=== PATIENT | male | born 1940 | race Caucasian/White ===

== ENCOUNTER 2016-09-23 08:16 | Outpatient (CLI) ==
[2016-04-14 23:29] VITALS: BMI 48.5
[2016-09-23 12:51] LABS: BASOPHILS % (AUTO) 0.5 % (0.0-3.0); EOSINOPHILS # (AUTO) 0.3 K/ul (0.0-0.7); EOSINOPHILS % (AUTO) 4.1 % (0.0-7.0); HEMATOCRIT 37.5 % (42.0-52.0); HEMOGLOBIN 12.1 g/dl (14.0-18.0); IMMATURE GRANULOCYTE % (AUTO) 0.3 % (0.0-5.0); LYMPHOCYTES # (AUTO) 1.4 K/uL (0.60-3.4); LYMPHOCYTES % (AUTO) 22.4 (10.0-50.0); MEAN CORPUSCULAR HEMOGLOBIN 31.8 pg (27.0-31.0); MEAN CORPUSCULAR HGB CONC 32.3 (31.8-35.4); MEAN CORPUSCULAR VOLUME 98.7 fl (80.0-94.0); MONOCYTES # (AUTO) 0.4 K/uL (0.4-2.0); NEUTROPHILS # (AUTO) 4.1 K/ul (2.0-6.9); NEUTROPHILS % (AUTO) 66.7; PLATELET COUNT 123 10^3/uL (140-440); WHITE BLOOD COUNT 6.16 K/ul (4.2-10.2)
[2016-09-23 13:01] LABS: BILIRUBIN,URINE Negative (NEGATIVE); KETONES,URINE Negative (NEGATIVE); LEUKOCYTE ESTERASE ,URINE Negative (NEGATIVE); NITRITE,URINE Negative (NEGATIVE); PROTEIN,URINE Negative (NEGATIVE); URINE, BLOOD Negative (NEGATIVE)
[2016-09-23 13:05] LABS: ADD URINE MICROSCOPIC NO
[2016-09-23 13:29] LABS: ANION GAP 16.4; POTASSIUM 4.4 mmol/L (3.5-5.1)
[2016-09-23 13:30] LABS: ALBUMIN 4.1 g/dL (3.4-5.0); ALBUMIN/GLOBULIN RATIO 1.32; BILIRUBIN,TOTAL 0.41 mg/dL (0.00-1.20); BUN/CREATININE RATIO 17.46; CALCIUM 9.8 mg/dL (8.2-10.2); CHOL/HDL RATIO 7.4 (4.5-6.4); CREATININE 1.26 mg/dL (0.60-1.10); TOTAL PROTEIN 7.2 g/dL (5.8-8.1)
== END 2016-09-23 08:17 | disposition home or self-care (01) ==
LOC: LAB 08:16
PROVIDERS: ATTEND General Practice
DX: E11.8 Type 2 diabetes mellitus with unspecified complications (principal); E11.40 Type 2 diabetes mellitus with diabetic neuropathy, unspecified; C90.00 Multiple myeloma not having achieved remission; I10 Essential (primary) hypertension; E03.9 Hypothyroidism, unspecified; E78.1 Pure hyperglyceridemia; Z79.899 Other long term (current) drug therapy
CPT/HCPCS: 36415; 80053; 80061; 81001; 83036; 84443; 85025

== ENCOUNTER → 2016-09-30 | Outpatient (POV) | payer OTHER ==
[2016-04-14 23:29] VITALS: BMI 48.5
== END ==
LOC: OUTPT 00:01
PROVIDERS: ATTEND Otolaryngology
DX: H91.90 Unspecified hearing loss, unspecified ear (principal)
CPT/HCPCS: 92557; 92567

== ENCOUNTER 2016-10-13 15:06 | Outpatient (CLI) | payer OTHER ==
[2016-04-14 23:29] VITALS: BMI 48.5
== END 2016-10-13 15:07 | disposition home or self-care (01) ==
LOC: LAB 15:06
PROVIDERS: ATTEND General Practice
DX: R60.0 Localized edema (principal); R06.09 Other forms of dyspnea
CPT/HCPCS: 36415; 83880

== ENCOUNTER 2016-11-07 09:48 | Inpatient (IN) ==
[2016-11-07 10:22] LABS: BASOPHILS % (AUTO) 0.5 % (0.0-3.0); EOSINOPHILS # (AUTO) 0.1 K/ul (0.0-0.7); EOSINOPHILS % (AUTO) 1.8 % (0.0-7.0); HEMATOCRIT 33.6 % (42.0-52.0); HEMOGLOBIN 11.4 g/dl (14.0-18.0); IMMATURE GRANULOCYTE % (AUTO) 0.2 % (0.0-5.0); LYMPHOCYTES # (AUTO) 0.7 K/uL (0.60-3.4); LYMPHOCYTES % (AUTO) 17.1 (10.0-50.0); MEAN CORPUSCULAR HEMOGLOBIN 32.1 pg (27.0-31.0); MEAN CORPUSCULAR HGB CONC 33.9 (31.8-35.4); MEAN CORPUSCULAR VOLUME 94.6 fl (80.0-94.0); MONOCYTES # (AUTO) 0.5 K/uL (0.4-2.0); MONOCYTES % (AUTO) 10.6 (0-10); NEUTROPHILS % (AUTO) 69.8; PLATELET COUNT 86 10^3/uL (140-440); RED BLOOD COUNT 3.55 10^6/ul (4.70-6.10); WHITE BLOOD COUNT 4.33 K/ul (4.2-10.2)
[2016-11-07 10:26] LABS: ABG BASE EXCESS -5 (-2.0-2.0); ABG HCO3 20.3 (22.0-26.0); ABG PCO2 36.8 mmHg (35-45); ABG PH 7.349 (7.35-7.45); ABG TCO2 21 (22.0-28.0)
[2016-11-07] MEDS ORDERED: DUONEB NEB STA (10:34)
[2016-11-07 11:00] LABS: ALBUMIN 4.1 g/dL (3.4-5.0); ALBUMIN/GLOBULIN RATIO 1.28; ANION GAP 20.2; BILIRUBIN,TOTAL 0.22 mg/dL (0.00-1.20); BUN/CREATININE RATIO 17.76; CALCIUM 9.5 mg/dL (8.2-10.2); CREATININE 1.52 mg/dL (0.60-1.10); POTASSIUM 4.2 mmol/L (3.5-5.1); TOTAL PROTEIN 7.3 g/dL (5.8-8.1); TROPONIN I 0.012 ng/ml (0.0000-0.4000)
[2016-11-07 11:56] LABS: CREATINE KINASE MB 1.7 ng/ml (0.0-3.6)
--- NOTE | 2016-11-07 12:51 | DI ---
EXAM: CHEST FRONTAL AND LATERAL VIEWS HISTORY: Cough. COMPARISON: 09/21/2014 FINDINGS: Heart size and mediastinal contour remain within normal limits. No acute infiltrates. Normal vascularity with no pleural fluid or pneumothorax. The bony thorax has no acute finding. IMPRESSION: No acute process.
--- NOTE | 2016-11-07 13:10 | ED.PDOC ---
General ED Provider: Dr. MIKEL VANCE Chief Complaint: Respiratory Complaint Stated Complaint: short of air Time Seen by Physician: 10:00 Mode of Arrival: Wheelchair Information Source: Patient Exam Limitations: No limitations Primary Care [facility] Nursing and Triage Documentation Reviewed and Agree: Yes Respiratory Complaint Exam - Shortness of Air Complaint/Exam Onset/Duration: 1 day Symptoms Are: Still present Timing: Constant, Intermittent Initial Severity: Mild Current Severity: Mild Character: Reports: Dyspnea at rest Aggravating: Reports: None Alleviating: Reports: Bronchodilators Associated Signs and Symptoms: Reports: Cough, Nasal congestion History of Healthcare-Acquired Pneumonia: No Pulmonary Embolism Risk Factors: Reports: None Cardiac Risk Factors: Reports: None Pseudomonas Risk Factors: Reports: None Tuberculosis Risk Factors: Reports: None Home Oxygen Use: No Recent Stress Test: No Recent Echo/LV Function: No Respiratory Distress: None Stridor Present: No Tracheal Deviation: No Subcutaneous Emphysema: No Accessory Muscle Use: No Diminished Breath Sounds: No Prolonged Expiratory Phase: No Unable to Speak Full Sentences: No Fatigue: No Leg Swelling: No Triston's Sign Present: No Grunting Respirations: No Kussmaul Respirations: No Differential Diagnoses: Pneumonia, Bronchitis Review of Systems - Review Of Systems Constitutional: Reports: No symptoms Eyes: Reports: No symptoms Ears, Nose, Mouth, Throat: Reports: No symptoms Respiratory: Reports: Cough Cardiac: Reports: No symptoms GI: Reports: No symptoms : Reports: No symptoms Musculoskeletal: Reports: No symptoms Skin: Reports: No symptoms Neurological: Reports: No symptoms Endocrine: Reports: No symptoms Hematologic/Lymphatic: Reports: No symptoms All Other Systems: Reviewed and Negative Past Medical History - Past Medical History Endocrine: Reports: DM 2, Hypothyroid Cardiovascular: Reports: Hypertension Respiratory: Reports: COPD Hematological: Reports: None Gastrointestinal: Reports: None Genitourinary: Reports: None Neuro/Psych: Reports: None Musculoskeletal: Reports: None Cancer: Reports: None - Surgical History General Surgical History: Reports: Appendectomy, Cholecystectomy, Orthopedic, Back Surgery - Family History Family History: Reports: None - Social History Smoking Status: Former smoker, Dips snuff Hx Substance Use: No Alcohol Screening: None Physical Exam - Physical Exam Appearance: Well-appearing, No pain distress, Well-nourished Eyes: RUTH ANN, EOMI, Conjunctiva clear ENT: Ears normal, Nose normal, Oropharynx normal Respiratory: Airway patent, Breath sounds clear, Breath sounds equal, Respirations nonlabored Cardiovascular: RRR, Pulses normal, No rub, No murmur GI/: Soft, Nontender, No masses, Bowel sounds normal, No Organomegaly Musculoskeletal: Normal strength, ROM intact, No edema, No calf tenderness Skin: Warm, Dry, Normal color Neurological: Sensation intact, Motor intact, Reflexes intact, Cranial nerves intact, Alert, Oriented Psychiatric: Affect appropriate, Mood appropriate Interpretation - Radiology Interpretation Radiology Interpretation By: Radiologist Radiology Results: Negative Exam Interpreted: CXR Physician Notification - Case Discussed Physician Notified: pmd Time of Notification: 13:10 (admitt) Admit/Transition Orders Entered by ED Provider: Yes Admit To: Inpatient Critical Care Note - Critical Care Note Total Time (mins): 0 Course - Course Hematology/Chemistry: 11/07/16 10:10 11/07/16 10:10 Orders, Labs, Meds: Lab Review 11/07/16 11/07/16 09:20 10:10 WBC 4.33 RBC 3.55 L Hgb 11.4 L Hct 33.6 L MCV 94.6 H MCH 32.1 H MCHC 33.9 RDW Coeff of Torri 13.8 Plt Count 86 L Immature Gran % (Auto) 0.2 Neut % (Auto) 69.8 Lymph % (Auto) 17.1 Dauphin % (Auto) 10.6 H Eos % (Auto) 1.8 Baso % (Auto) 0.5 Immature Gran # (Auto) 0.0 Neut # 3.0 Lymph # 0.7 Dauphin # 0.5 Eos # 0.1 Baso # 0.0 D-Dimer 0.29 Puncture Site L rad O2 Saturation 89.0 L ABG pH 7.349 L ABG pCO2 36.8 ABG pO2 58.0 L* ABG HCO3 20.3 L ABG Total CO2 21 L ABG Base Excess -5 L Shilo Test + FiO2 % 21.0 Sodium 136 Potassium 4.2 Chloride 100 Carbon Dioxide 20 L Anion Gap 20.2 BUN 27 H Creatinine 1.52 H Estimated GFR (MDRD) 45.00 BUN/Creatinine Ratio 17.76 Glucose 178 H Calcium 9.5 Total Bilirubin 0.22 AST 21 ALT 27 Alkaline Phosphatase 74 Total Creatine Kinase 125 CK-MB (CK-2) 1.7 CK-MB (CK-2) % 1.40019 Troponin I 0.0120 B-Natriuretic Peptide 27 Total Protein 7.3 Albumin 4.1 Globulin 3.2 Albumin/Globulin Ratio 1.28 Orders Category Date Time Status ABG DRAW REQUEST Stat CARDIO 11/07/16 09:57 Completed EKG-(ED ONLY) Stat CARDIO 11/07/16 10:02 Completed NEBULIZER TREATMENT Stat CARDIO 11/07/16 10:34 Completed ABG Stat LAB 11/07/16 09:20 Completed B-TYPE NATRIURETIC PEPTIDE Stat LAB 11/07/16 10:10 Completed BLOOD CULTURE Stat LAB 11/07/16 10:10 Received CBC W/ AUTO DIFF Stat LAB 11/07/16 10:10 Completed COMPREHENSIVE METABOLIC PANEL Stat LAB 11/07/16 10:10 Completed CREATINE KINASE Stat LAB 11/07/16 10:10 Completed D-DIMER Stat LAB 11/07/16 10:10 Completed TROPONIN I Stat LAB 11/07/16 10:10 Completed Ipratropium/Albuterol Neb [Duoneb] MEDS 11/07/16 10:34 Discontinued 1 vial NEB ONCE STA CHEST, 2 VIEWS PA & LAT Stat RADS 11/07/16 12:18 Completed Medications Discontinued Medications Generic Name Dose Route Start Last Admin Trade Name Freq PRN Reason Stop Dose Admin Albuterol/Ipratropium 1 vial 11/07/16 10:34 11/07/16 10:48 Duoneb NEB 11/07/16 10:35 1 vial ONCE STA Administration Vital Signs: Temp Pulse Resp BP Pulse Ox 11/07/16 09:48 96.7 F L 81 20 128/74 89 L Departure - Departure Time of Disposition: 13:10 Disposition: ADMITTED INPATIENT Discharge Problem: Shortness of breath at rest Instructions: Dyspnea (ED) Condition: Good Pt referred to PMD for follow-up: No Additional Instructions: Please call your Family Physician as soon as possible to schedule a follow-up appointment. Allergies/Adverse Reactions: Allergies gabapentin Adverse Reaction (Verified 11/07/16 09:54) Swelling STATES, "MAKES HIM SWELL AND HOLD WATER" Home Medications: Ambulatory Orders Glipizide [Glucotrol] 10 mg PO BID 05/24/13 Levothyroxine Sodium [Synthroid] 112 mcg PO QDAC 05/24/13 Polyethylene Glycol 3350 [Clearlax] 119 gm PO BEDTIME 05/24/13 Terazosin HCl [Hytrin] 5 mg PO DAILY 05/24/13 Acetaminophen [Tylenol] 1,000 mg PO BID 09/21/14 Cyanocobalamin/Folic Acid [Vitamin J20-Iuhgb Acid Tablet] 5,000 mcg PO DAILY 04/28 Aspirin [Aspir 81] 81 mg PO DAILY PRN 06/07/15 Torsemide 20 mg PO DAILY 06/07/15 Lorazepam [Ativan] 0.5 mg PO DAILY PRN 11/07/16 Potassium 99 mg PO DAILY 11/07/16 Disposition Discussed With: Patient
[2016-11-07] MEDS: SODIUM CHLORIDE 1,000 ML IV SCH (13:51)
[2016-11-07 14:05] VITALS: BMI 48.9
[2016-11-07] MEDS: DUONEB NEB SCH ×2 (17:10→23:02)
[2016-11-07] MEDS ORDERED: GLUCOTROL PO SCH (17:30)
[2016-11-07 20:31] LABS: CREATINE KINASE 117 U/L
[2016-11-07 20:33] LABS: CREATINE KINASE MB 1.6 ng/ml (0.0-3.6)
[2016-11-07] MEDS ORDERED: TYLENOL PO SCH (21:00)
[2016-11-07] MEDS ORDERED: ZITHROMAX 500 MG in SODIUM CHLORIDE 250 ML IV SCH (21:00)
[2016-11-07] MEDS ORDERED: ROCEPHIN 2 GM in SODIUM CHLORIDE 100 ML IV SCH (21:00)
[2016-11-07] MEDS ORDERED: NON-FORMULARY MEDICATION (Glipizide [Glucotrol] 10 MG) PO SCH ×22 (21:00)
[2016-11-07] MEDS ORDERED: POLYETHYLENE GLYCOL 119 GM PO SCH (21:00)
[2016-11-07] MEDS ORDERED: ROCEPHIN ONE (21:09)
[2016-11-07] MEDS: ZESTRIL PO SCH (21:17)
[2016-11-07] MEDS: MIRALAX PO SCH (21:17)
[2016-11-07] MEDS: SOLU-MEDROL 40 MG IVP SCH (21:19)
[2016-11-08 03:41] LABS: BASOPHILS % (AUTO) 0.2 % (0.0-3.0); EOSINOPHILS % (AUTO) 0.2 % (0.0-7.0); HEMATOCRIT 34.7 % (42.0-52.0); HEMOGLOBIN 11.5 g/dl (14.0-18.0); IMMATURE GRANULOCYTE % (AUTO) 0.2 % (0.0-5.0); LYMPHOCYTES # (AUTO) 0.4 K/uL (0.60-3.4); LYMPHOCYTES % (AUTO) 8.1 (10.0-50.0); MEAN CORPUSCULAR HEMOGLOBIN 31.7 pg (27.0-31.0); MEAN CORPUSCULAR HGB CONC 33.1 (31.8-35.4); MEAN CORPUSCULAR VOLUME 95.6 fl (80.0-94.0); MONOCYTES # (AUTO) 0.2 K/uL (0.4-2.0); MONOCYTES % (AUTO) 3.7 (0-10); NEUTROPHILS # (AUTO) 4.2 K/ul (2.0-6.9); NEUTROPHILS % (AUTO) 87.6; PLATELET COUNT 107 10^3/uL (140-440); RED BLOOD COUNT 3.63 10^6/ul (4.70-6.10); WHITE BLOOD COUNT 4.81 K/ul (4.2-10.2)
[2016-11-08 04:00] LABS: ALBUMIN/GLOBULIN RATIO 1.08; ANION GAP 20.4; BILIRUBIN,TOTAL 0.17 mg/dL (0.00-1.20); BUN/CREATININE RATIO 19.07; CALCIUM 9.1 mg/dL (8.2-10.2); CREATININE 1.52 mg/dL (0.60-1.10); POTASSIUM 5.4 mmol/L (3.5-5.1); TOTAL PROTEIN 7.7 g/dL (5.8-8.1)
[2016-11-08 04:16] LABS: CREATINE KINASE 122 U/L
[2016-11-08 04:36] LABS: CREATINE KINASE MB 1.9 ng/ml (0.0-3.6)
[2016-11-08] MEDS: DUONEB NEB SCH ×4 (04:56→23:15)
[2016-11-08] MEDS: SODIUM CHLORIDE 1,000 ML IV SCH ×2 (05:41→18:39)
[2016-11-08] MEDS: SYNTHROID PO SCH (05:43)
[2016-11-08] MEDS: HUMULIN R SUBCUT PRN ×4 (06:17→21:24)
[2016-11-08] MEDS: HYTRIN PO SCH (08:46)
[2016-11-08] MEDS: DEMADEX PO SCH (08:46)
[2016-11-08] MEDS: ZESTRIL PO SCH ×2 (08:47→20:32)
[2016-11-08] MEDS ORDERED: NON-FORMULARY MEDICATION (Potassium [Potassium] 99 MG) PO SCH (09:00)
[2016-11-08] MEDS ORDERED: HYTRIN PO SCH (09:00)
[2016-11-08] MEDS: ASPIRIN EC PO SCH (09:40)
[2016-11-08] MEDS: SOLU-MEDROL 40 MG IVP SCH (09:41)
[2016-11-08] MEDS: MIRALAX PO SCH (20:32)
[2016-11-08] MEDS: ROCEPHIN 2 GM in SODIUM CHLORIDE 100 ML IV SCH (20:32)
[2016-11-08] MEDS ORDERED: ZITHROMAX 500 MG in SODIUM CHLORIDE 250 ML IV SCH (21:00)
[2016-11-09] MEDS: DUONEB NEB SCH ×4 (05:04→22:54)
[2016-11-09] MEDS: SYNTHROID PO SCH (05:51)
[2016-11-09] MEDS: SODIUM CHLORIDE 1,000 ML IV SCH ×2 (07:15→18:04)
[2016-11-09 07:55] LABS: BASOPHILS % (AUTO) 0.2 % (0.0-3.0); EOSINOPHILS % (AUTO) 0.2 % (0.0-7.0); HEMATOCRIT 33.4 % (42.0-52.0); HEMOGLOBIN 11.1 g/dl (14.0-18.0); IMMATURE GRANULOCYTE % (AUTO) 0.2 % (0.0-5.0); LYMPHOCYTES # (AUTO) 0.6 K/uL (0.60-3.4); LYMPHOCYTES % (AUTO) 13.7 (10.0-50.0); MEAN CORPUSCULAR HEMOGLOBIN 32.3 pg (27.0-31.0); MEAN CORPUSCULAR HGB CONC 33.2 (31.8-35.4); MEAN CORPUSCULAR VOLUME 97.1 fl (80.0-94.0); MONOCYTES # (AUTO) 0.3 K/uL (0.4-2.0); MONOCYTES % (AUTO) 7.6 (0-10); NEUTROPHILS # (AUTO) 3.4 K/ul (2.0-6.9); NEUTROPHILS % (AUTO) 78.1; PLATELET COUNT 106 10^3/uL (140-440); RED BLOOD COUNT 3.44 10^6/ul (4.70-6.10); WHITE BLOOD COUNT 4.32 K/ul (4.2-10.2)
[2016-11-09 08:16] LABS: ALBUMIN 3.9 g/dL (3.4-5.0); ALBUMIN/GLOBULIN RATIO 1.15; ANION GAP 18.1; BILIRUBIN,TOTAL 0.16 mg/dL (0.00-1.20); BUN/CREATININE RATIO 20.86; CALCIUM 9.2 mg/dL (8.2-10.2); CREATININE 1.39 mg/dL (0.60-1.10); POTASSIUM 4.1 mmol/L (3.5-5.1); TOTAL PROTEIN 7.3 g/dL (5.8-8.1)
[2016-11-09] MEDS: ZESTRIL PO SCH ×2 (08:19→21:07)
[2016-11-09] MEDS: GLUCOTROL PO SCH ×4 (08:20→22:33)
[2016-11-09] MEDS: DEMADEX PO SCH (08:20)
[2016-11-09] MEDS: HYTRIN PO SCH (08:20)
[2016-11-09] MEDS: ASPIRIN EC PO SCH (08:20)
[2016-11-09] MEDS: ATIVAN PO PRN (08:24)
[2016-11-09 11:01] LABS: ABG PCO2 39.3 mmHg (35-45)
[2016-11-09 11:02] LABS: ABG BASE EXCESS -4 (-2.0-2.0); ABG HCO3 21.7 (22.0-26.0); ABG TCO2 23 (22.0-28.0)
[2016-11-09] MEDS ORDERED: MYLANTA SUSP PO PRN (12:30)
[2016-11-09] MEDS: MYLANTA SUSP PO SCH ×4 (13:11→21:13)
[2016-11-09] MEDS: ZITHROMAX 500 MG in SODIUM CHLORIDE 250 ML IV SCH ×3 (14:58→21:18)
[2016-11-09] MEDS: ROCEPHIN 2 GM in SODIUM CHLORIDE 100 ML IV SCH (21:05)
[2016-11-09] MEDS: MIRALAX PO SCH (21:13)
[2016-11-10] MEDS: DUONEB NEB SCH ×2 (04:48→11:34)
[2016-11-10 05:29] LABS: EOSINOPHILS % (AUTO) 0.9 % (0.0-7.0); HEMATOCRIT 31.8 % (42.0-52.0); HEMOGLOBIN 10.5 g/dl (14.0-18.0); IMMATURE GRANULOCYTE % (AUTO) 0.4 % (0.0-5.0); LYMPHOCYTES # (AUTO) 1.2 K/uL (0.60-3.4); LYMPHOCYTES % (AUTO) 25.2 (10.0-50.0); MEAN CORPUSCULAR HEMOGLOBIN 31.6 pg (27.0-31.0); MEAN CORPUSCULAR VOLUME 95.8 fl (80.0-94.0); MONOCYTES # (AUTO) 0.3 K/uL (0.4-2.0); MONOCYTES % (AUTO) 6.5 (0-10); NEUTROPHILS # (AUTO) 3.1 K/ul (2.0-6.9); PLATELET COUNT 97 10^3/uL (140-440); RED BLOOD COUNT 3.32 10^6/ul (4.70-6.10); WHITE BLOOD COUNT 4.65 K/ul (4.2-10.2)
[2016-11-10] MEDS: SYNTHROID PO SCH (05:34)
[2016-11-10 05:59] LABS: ALBUMIN 3.7 g/dL (3.4-5.0); ALBUMIN/GLOBULIN RATIO 1.19; ANION GAP 13.9; BILIRUBIN,TOTAL 0.18 mg/dL (0.00-1.20); BUN/CREATININE RATIO 21.87; CREATININE 1.28 mg/dL (0.60-1.10); POTASSIUM 3.9 mmol/L (3.5-5.1); TOTAL PROTEIN 6.8 g/dL (5.8-8.1)
[2016-11-10] MEDS: ZESTRIL PO SCH (08:29)
[2016-11-10] MEDS: ASPIRIN EC PO SCH (08:29)
[2016-11-10] MEDS: GLUCOTROL PO SCH (08:29)
[2016-11-10] MEDS: DEMADEX PO SCH (08:29)
[2016-11-10] MEDS: HYTRIN PO SCH (08:29)
[2016-11-10] MEDS: MYLANTA SUSP PO SCH ×2 (08:31→12:58)
[2016-11-10] MEDS: ATIVAN PO PRN (09:19)
[2016-11-10] MEDS: ZITHROMAX 500 MG in SODIUM CHLORIDE 250 ML IV SCH (12:46)
--- NOTE | 2016-11-10 13:03 | PN ---
DATE OF VISIT: 11/09/16 SUBJECTIVE: The patient this day is alert and feeling good. No dyspnea or tachypnea. His color is good and is sitting. He claims to be feeling well except he choked on a piece of meat and gagged. He vomited some fluid. He feeling like it in still in the throat. I did ask him to drink water. He has not regurgitation the water while I was in the room. He is also given Mylanta an ounce four times a day to see if that would help what he called reflux problems. I think he actually choked on the meat. If that problem persists then he will be referred to a GI doctor tomorrow. He wanted to go home today but because of these problems I do think that he should stay in the hospital for further observation. LUNGS: Clear and his antibiotic regimen will be continued while here in the hospital consisting of Azithromycin as well as Rocephin. VITAL SIGNS: Temperature 97.6, pulse 69, blood pressure 117/54, respiratory rate 20 and oxygen saturation 95% at 2 liters of oxygen. LABS: His Arterial blood gasses is much better then admission. Oxygen saturation 91, pH 7.350 and was 7.349 on admission, pCO2 39.3, pO2 65 previously 58 and CO3 21.7 from 20.3, total CO2 23 from 21. Fasting blood sugar is now down to 155 from 137 yesterday and 178 on admission. This patient is giving a sliding scale Humulin R. Glipizide was discontinued for now. MTDD
--- NOTE | 2016-11-10 13:11 | PN ---
DATE OF VISIT: 11/08/16 SUBJECTIVE: The patient is alert and claimed to be feeling better. Indeed he looks better and he looks rested today than yesterday. He is not dyspneic or tachypneic today and no cyanosis. FACE: Still symmetrical and equal NECK: No masses and no bruit LUNGS: Breath sounds are heard in both side better with no rales. Wheezing has almost completely resolved. HEART: Audible and regular with good tones ABDOMEN: Protuberant, nontender. LOWER EXTREMITIES: Edematous foot and ankle. No tenderness in the calf muscles. No anticoagulation is given at this time. This patient is advised to keep his legs moving and walk as often as possible. More frequently then when he was at home. This patient was given an antibiotic in spite of the normal procalcitonin and no acute processes identified on chest x-ray because of his history of COPD. INESSA
[2016-11-10 15:24] VITALS: BP 126/62; TEMP 97.4
--- NOTE | 2016-11-11 11:19 | HP ---
CHIEF COMPLAINT: 1. Shortness of breath 2. Cough SOURCE OF HISTORY: Patient and also emergency room intake. HISTORY OF PRESENT ILLNESS: The patient claimed to have begun experiencing cough and runny nose since about four days prior to presentation to the emergency room. The patient denied any chills or a high fever. He also denied any muscular aches. Cough and nasal congestion and drainage continued and the patient did experience shortness of breath, more so the day before and on the day of presentation to the emergency room. The patient had no chills or fever and denied any urinary problems, such as pain on urination or urgency. The patient was evaluated in the emergency and the following work up consisted of a CBC showing normal WBC, lower hemoglobin and hematocrit, moderate at 11.4 and 33.6 respectively. Platelet count 86,000. D Dimer 0.29 within normal. Arterial blood gases with pH 7.349, PO2 58, PCO2 36.8 normal, HCO3 20.3 below normal, total CO2 21 below normal, base excess -5, oxygen saturation 89%, FIO2 21. Chemistries showed a slightly lower CO2 at 20, range of normal 23-31, BUN 27, creatinine 1.52, GFR 45, blood sugar 178, CK, plus MB normal, Troponin normal. BNP 27, Procalcitonin 0.15. The rest are normal. No urinalysis. The patient was admitted to the hospital because of shortness of breath and wheezing. The chest x-ray did not show any acute processes. PAST PERSONAL HISTORY: The patient had cataract extraction, tonsillectomy, cholecystectomy, benign prostatic hypertrophy, vasectomy, diabetes mellitus since 2010, removal of a cyst in the back, hypertension, COPD, dyslipidemia, anemia, chronic kidney disease, peripheral arterial disease, asthma. The patient has thrombocytopenia, as well as metabolic syndrome. He also had diabetic neuropathy of lower extremities. FAMILY HISTORY: Mother had COPD. Father had diabetes mellitus. Sister had malignancy, probably uterus or cervix. Brother also had cancer. SOCIAL HISTORY: The patient is and resides alone. The patient stopped smoking, but then went on to use tobacco by chewing. He denied any alcohol use or any substance abuse or drug abuse. MEDICATIONS: Prior to this admission. Glucotrol 10 mg twice a day Hytrin 5 mg daily Levothyroxine 112 mcg daily Clearlax 510 gram powder, 119 grams daily Vitamin B12, plus Folic Acid one daily 5,000 mcg Tylenol 1,000 mg twice a day Aspirin 81 mg daily Torsemide 20 mg daily Lisinopril 20 mg tablet 1/2 tablet twice a day Lorazepam 0.5 mg tablet daily as needed Potassium 99 mg daily over the counter The patient has duplication of Lisinopril and Terazosin. ALLERGIES: Gabapentin REVIEW OF SYSTEMS: CONSTITUTIONAL: The patient has no fever or chills, but is short of breath and gasping and is tired because of the increasing shortness of breath. [employer]: No syncopal episodes or seizure disorder. No ataxia, no significant headaches that is persistent. VISUAL: Denies any blurred vision, double vision or transient loss of vision. AUDITORY: Hearing is decreased. He denies any tinnitus or pain or drainage. RESPIRATORY: The patient has cough, sputum not purulent. Denies any hemoptysis. CARDIOVASCULAR: Denies any chest pain or chest tightness. GASTROINTESTINAL: Appetite had decreased in the last couple of days. No abdominal pain. No problems swallowing solids or liquids. GENITOURINARY: Denies any pain on urination. He does have some frequency, but no urgency. MUSCULOSKELETAL: The patient does have some hip pain, as well as low back pain. INTEGUMENT: No rash or pruritus. ENDOCRINE: Negative, except the patient has diabetes mellitus type II. The patient has metabolic syndrome and is markedly obese. HEMATOLOGIC: He denies any history of prolonged bleeding or easy bruising. PSYCHIATRIC: Affect is normal. PHYSICAL EXAMINATION: GENERAL: We have a 76 year old male admitted to the hospital via the emergency room because of increasing shortness of breath and cough. He is 5'7" , 313 pounds 11.2 ounces, BMI 49.0. VITAL SIGNS: Temperature 97, pulse 84, blood pressure 137/56, respiratory rate 19, oxygen saturation 95 at 2 liters of oxygen. HEAD: Unremarkable. FACE: Symmetrical and equal with no facial weakness. EYES: Pupils equal/reactive to light 3 mm in size. Conjunctivae slightly pale. Sclerae not icteric. MOUTH: Unremarkable. THROAT: No inflammation, no tumors. NECK: No masses. No bruit. No tenderness. CHEST: Essentially symmetrical and equal with good expansion and no tenderness. LUNGS: Breath sounds are diminished in both sides with inspiratory and expiratory wheezing. No rales could be heard. HEART: Audible and regular with good tones. No murmurs. ABDOMEN: Markedly protuberant, soft with no remarkable tenderness and no guarding. No masses palpable and no bruit. Note: it is very difficult to palpate a mass with the size of the abdomen. LOWER EXTREMITIES: Essentially symmetrical and equal with 2+ pitting edema. Posterior tibials are absent. UPPER EXTREMITIES: Symmetrical and equal. ASSESSMENT: 1. ACUTE EXACERBATION OF CHRONIC BRONCHITIS 2. SIGNIFICANT HYPOXEMIA SECONDARY TO #1 3. HISTORY OF CHRONIC OBSTRUCTIVE PULMONARY DISEASE 4. HISTORY OF TYPE II DIABETES MELLITUS 5. HISTORY OF OBESITY, BMI 49.0 6. HISTORY OF THROMBOCYTOPENIA 7. HISTORY OF DIABETES NEUROPATHY 8. HISTORY OF ESSENTIAL HYPERTENSION 9. HISTORY OF SMOLDERING MYELOMA 10. CHRONIC LUMBAR PAIN 11. HISTORY OF HYPERTRIGLYCERIDEMIA 12. HISTORY OF EXERTIONAL DYSPNEA 13. PERIPHERAL ARTERIAL DISEASE, ABSENT POSTERIOR TIBIAL PULSES 14. HISTORY OF CHRONIC KIDNEY DISEASE STAGE III 15. HISTORY OF ASTHMA 16. HISTORY OF MODERATE ANEMIA PROGNOSIS: Guarded. MTDD
--- NOTE | 2016-11-12 10:04 | DS ---
PATIENT IDENTIFICATION: 76 year old male began experiencing cough and nasal congestion about four days prior to presentation to the clinic. He did call the office in the morning of 11/07/16. He wanted to be seen right away and could not wait for me. I do not begin to see patients at 9:30, so he came to the clinic side and was seen by Ly Ramos, Nurse Practitioner. In the process, he was advised to go to the emergency room since he was diaphoretic. My office had told him to go to the emergency room instead of waiting for me, which he did not want to do. This patient was evaluated in the emergency room and subsequently admitted. The patient had shortness of breath. The patient's arterial blood gases showed moderate hypoxemia with a PO2 of 58 , PCO2 36.8, pH 7.349. His GFR was 45, blood sugar 178. BNP normal at 27. CK and Troponin were normal. The patient was admitted with a diagnosis of exacerbation of chronic bronchitis, as well as exacerbation of asthma. This patient is known to have bronchial asthma. HOSPITAL COURSE: The patient, indeed, on examination on admission to the floor had diminished breath sounds in both sides with inspiratory wheezing. No rales could be appreciated at that time. HEART: Audible and regular with good tones. ABDOMEN: Markedly protuberant. The patient's BMI was 49.0. The patient was given DuoNeb nebulizer in the emergency room and Solu-Cortef 40 mg IV every 12 hours. He also was prescribed Ceftriaxone 2 gram IV daily and Azithromycin 500 mg daily. His home medications were continued. The patient on the following day was feeling better, although he still has some wheezing, but less. The heart is audible with good tones. He claims to feel better and indeed he looked better. The patient on 11/09/16 wanted to go home. I did tell him that we needed to finish his medication and after which he would be able to go home. This patient will be receiving the second dose of the Azithromycin on 11/09/16. After he completed the third dose, then this patient could most likely go home. The patient on 11/10/16 is alert, oriented times four, not dyspneic, nor tachypneic and itching to go home. I told him that as soon as the medication is finished that he can go home. He would not be needing any antibiotic prescription. The patient at the time of discharge was alert, ambulatory, oriented times four, not dyspneic, nor tachypneic. VITAL SIGNS: At 2 o'clock in the afternoon showed a temperature of 97.4, pulse of 68, blood pressure 126/62, respiratory rate 20, oxygen saturation 98 at room air. I removed the oxygen and discontinued and ordered an hourly oximetry, which was done and persisted to be at 98. His auscultation prior to discharge showed breath sides heard well in both sides with no rales or wheezing. The heart audible and regular with good tones. His appetite is good consuming 100% of lunch. PLAN: 1. The patient is to resume his previous medications. 2. 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 I did advise him to call the office to make the appointment Thursday eight days from the time of discharge. 3. He was further advised that if he had recurrence of the problem that he should present himself to the emergency room. FINAL DIAGNOSES: 1. ASTHMA WITH ACUTE EXACERBATION 2. CHRONIC OBSTRUCTIVE PULMONARY DISEASE WITH PROBABLE ACUTE EXACERBATION 3. MARKEDLY ELEVATED BMI 49.0. 4. TYPE II DIABETES MELLITUS 5. MODERATE HYPOXEMIA 6. HISTORY OF THROMBOCYTOPENIA 7. HISTORY OF DIABETIC NEUROPATHY OF FEET 8. HISTORY OF HYPERTENSION 9. HISTORY OF SMOULDERING MYELOMA 10. CHRONIC LUMBAR PAIN 11. HYPERTRIGLYCERIDEMIA 12. PERIPHERAL ARTERIAL DISEASE, ABSENT POSTERIOR TIBIALS 13. CHRONIC KIDNEY DISEASE STAGE III 14. MODERATE ANEMIA PROGNOSIS: Guarded. MTDD
== END 2016-11-10 15:43 | disposition home or self-care (01) | DRG 191 ==
LOC: ED 09:48 → MEDSURG B 13:15
PROVIDERS: ADMIT General Practice; ATTEND General Practice
DX: J44.9 Chronic obstructive pulmonary disease, unspecified (principal); J44.1 Chronic obstructive pulmonary disease with (acute) exacerbation; Z68.42 Body mass index [BMI] 45.0-49.9, adult; J45.909 Unspecified asthma, uncomplicated; R63.8 Other symptoms and signs concerning food and fluid intake; E13.40 Other specified diabetes mellitus with diabetic neuropathy, unspecified; R09.02 Hypoxemia; I10 Essential (primary) hypertension; F17.220 Nicotine dependence, chewing tobacco, uncomplicated; G89.29 Other chronic pain; M54.5 Low back pain; E78.1 Pure hyperglyceridemia; I73.89 Other specified peripheral vascular diseases; I12.9 Hypertensive chronic kidney disease with stage 1 through stage 4 chronic kidney disease, or unspecified chronic kidney disease; N18.3 Chronic kidney disease, stage 3 (moderate); D64.9 Anemia, unspecified; R06.02 Shortness of breath; T17.928A Food in respiratory tract, part unspecified causing other injury, initial encounter; Z85.89 Personal history of malignant neoplasm of other organs and systems; Z79.84 Long term (current) use of oral hypoglycemic drugs; Z79.899 Other long term (current) drug therapy
CPT/HCPCS: 36415; 80053; 82550; 82553; 82803; 82962; 83880; 84145; 84484; 85025; 85379; 86710; 87040; 93005; 93010; 94640; 99223; 99232; 99239; 99284

== ENCOUNTER 2017-01-06 15:13 | Inpatient (IN) | payer OTHER ==
[2017-01-06] MEDS ORDERED: DUONEB NEB STA (15:33)
--- NOTE | 2017-01-06 15:36 | ED.PDOC ---
General ED Provider: Dr. AERLENE HERRERA JR Chief Complaint: Respiratory Complaint Stated Complaint: ASTHMA ATTACK AT 10 OCLOCK LAST NIGHT Time Seen by Physician: 15:37 Mode of Arrival: Stretcher Information Source: Patient Exam Limitations: No limitations, Clinical condition [facility] and Triage Documentation Reviewed and Agree: No Review of Systems - Review Of Systems Constitutional: Reports: No symptoms Eyes: Reports: No symptoms Ears, Nose, Mouth, Throat: Reports: No symptoms Respiratory: Reports: Cough, Wheezing Cardiac: Reports: No symptoms GI: Reports: No symptoms : Reports: No symptoms Musculoskeletal: Reports: No symptoms Skin: Reports: No symptoms Neurological: Reports: No symptoms Endocrine: Reports: No symptoms Hematologic/Lymphatic: Reports: No symptoms All Other Systems: Other Past Medical History - Past Medical History Endocrine: Reports: DM 2, Hypothyroid Cardiovascular: Reports: Hypertension Respiratory: Reports: COPD Hematological: Reports: None Gastrointestinal: Reports: None Genitourinary: Reports: None Neuro/Psych: Reports: None Musculoskeletal: Reports: None Cancer: Reports: None - Surgical History General Surgical History: Reports: Appendectomy, Cholecystectomy, Orthopedic, Back Surgery - Family History Family History: Reports: None - Social History Smoking Status: Former smoker, Dips snuff Hx Substance Use: No Alcohol Screening: None Physical Exam - Physical Exam Appearance: Well-appearing, Obese Pain Distress: Moderate Eyes: RUTH ANN, EOMI, Conjunctiva clear ENT: Ears normal, Nose normal, Oropharynx normal Neck: Supple Respiratory: Airway patent, Breath sounds equal, Breath sounds diminished, Respirations nonlabored, Wheezes Cardiovascular: RRR, Pulses normal, No rub, No murmur GI/: Soft, Nontender, No masses, Bowel sounds normal, No Organomegaly Musculoskeletal: Normal strength, ROM intact, No edema, No calf tenderness Skin: Warm, Dry, Normal color Neurological: Sensation intact, Motor intact, Reflexes intact, Cranial nerves intact, Alert, Oriented Psychiatric: Affect appropriate, Mood appropriate Interpretation - EKG Interpretation Time of EKG #1: 15:50 Rate: Normal Rhythm: Sinus Critical Care Note - Critical Care Note Total Time (mins): 0 Course - Course Hematology/Chemistry: 01/06/17 15:45 01/06/17 15:45 Orders, Labs, Meds: Lab Review 01/06/17 01/06/17 15:35 15:45 WBC 5.86 RBC 3.71 L Hgb 11.9 L Hct 35.4 L MCV 95.4 H MCH 32.1 H MCHC 33.6 RDW Coeff of Torri 13.4 Plt Count 102 L Immature Gran % (Auto) 0.2 Neut % (Auto) 71.5 Lymph % (Auto) 15.0 [place] % (Auto) 5.6 Eos % (Auto) 7.2 H Baso % (Auto) 0.5 Immature Gran # (Auto) 0.0 Neut # 4.2 Lymph # 0.9 [place] # 0.3 L Eos # 0.4 Baso # 0.0 Puncture Site Rrad O2 Saturation 92.0 L ABG pH 7.312 L ABG pCO2 43.2 ABG pO2 68.0 L ABG HCO3 21.9 L ABG Total CO2 23 ABG Base Excess -4 L Shilo Test + FiO2 % 21.0 Sodium 138 Potassium 4.5 Chloride 102 Carbon Dioxide 22 L Anion Gap 18.5 BUN 22 H Creatinine 1.31 H Estimated GFR (MDRD) 53.00 BUN/Creatinine Ratio 16.79 Glucose 150 H Calcium 9.8 Total Bilirubin 0.44 AST 20 ALT 23 Alkaline Phosphatase 64 Total Creatine Kinase 107 Troponin I 0.0100 B-Natriuretic Peptide 60 Total Protein 7.4 Albumin 4.3 Globulin 3.1 Albumin/Globulin Ratio 1.39 Orders Category Date Time Status ADMIT PATIENT INPATIENT .TO [facility] (MONITORED BED) ADMISSION 01/06/17 18: 02 Ordered ABG DRAW REQUEST Stat CARDIO 01/06/17 15:35 Completed EKG-(ED ONLY) Stat CARDIO 01/06/17 15:34 Completed NEBULIZER TREATMENT Stat CARDIO 01/06/17 15:34 Completed NEBULIZER TREATMENT Stat CARDIO 01/06/17 17:29 Ordered OXYGEN Routine CARDIO 01/06/17 18:02 Ordered ACTIVITY .Early Mobilization for VTE Prevention CARE 01/06/17 18:02 Ordered BLOOD GLUCOSE MONITORING 0630,1100,1700,2100 CARE 01/06/17 18:03 Ordered GIVE HS SNACK 2100 CARE 01/06/17 18:03 Ordered INTAKE & OUTPUT Q8HR CARE 01/06/17 18:02 Ordered TELEMETRY MONITORING TELE CARE 01/06/17 18:03 Ordered VITAL SIGNS Q4HR CARE 01/06/17 18:02 Ordered ADA 1800 SHAHIDA. DIET DIETARY 01/06/17 Dinner Ordered HS SNACK DIETARY 01/06/17 Dinner Ordered ED APPLY O2 .ONCE EMERGENCY 01/06/17 15:[address] [facility] APPLIED .ONCE EMERGENCY 01/06/17 15:34 Active ABG Stat LAB 01/06/17 15:35 Completed B-TYPE NATRIURETIC PEPTIDE Stat LAB 01/06/17 15:45 Completed BLOOD CULTURE Stat LAB 01/06/17 15:45 Received CBC W/ AUTO DIFF DAILY@0600 LAB 01/07/17 06:00 Ordered CBC W/ AUTO DIFF DAILY@0600 LAB 01/08/17 06:00 Ordered CBC W/ AUTO DIFF DAILY@0600 LAB 01/09/17 06:00 Ordered CBC W/ AUTO DIFF DAILY@0600 LAB 01/10/17 06:00 Ordered CBC W/ AUTO DIFF DAILY@0600 LAB 01/11/17 06:00 Ordered CBC W/ AUTO DIFF DAILY@0600 LAB 01/12/17 06:00 Ordered CBC W/ AUTO DIFF DAILY@0600 LAB 01/13/17 06:00 Ordered CBC W/ AUTO DIFF DAILY@0600 LAB 01/14/17 06:00 Ordered CBC W/ AUTO DIFF DAILY@0600 LAB 01/15/17 06:00 Ordered CBC W/ AUTO DIFF DAILY@0600 LAB 01/16/17 06:00 Ordered CBC W/ AUTO DIFF DAILY@0600 LAB 01/17/17 06:00 Ordered CBC W/ AUTO DIFF DAILY@0600 LAB 01/18/17 06:00 Ordered CBC W/ AUTO DIFF DAILY@0600 LAB 01/19/17 06:00 Ordered CBC W/ AUTO DIFF DAILY@0600 LAB 01/20/17 06:00 Ordered CBC W/ AUTO DIFF DAILY@0600 LAB 01/21/17 06:00 Ordered CBC W/ AUTO DIFF DAILY@0600 LAB 01/22/17 06:00 Ordered CBC W/ AUTO DIFF DAILY@0600 LAB 01/23/17 06:00 Ordered CBC W/ AUTO DIFF DAILY@0600 LAB 01/24/17 06:00 Ordered CBC W/ AUTO DIFF DAILY@0600 LAB 01/25/17 06:00 Ordered CBC W/ AUTO DIFF DAILY@0600 LAB 01/26/17 06:00 Ordered CBC W/ AUTO DIFF Stat LAB 01/06/17 15:45 Completed COMPREHENSIVE METABOLIC PANEL DAILY@0600 LAB 01/07/17 06:00 Ordered COMPREHENSIVE METABOLIC PANEL DAILY@0600 LAB 01/08/17 06:00 Ordered COMPREHENSIVE METABOLIC PANEL DAILY@0600 LAB 01/09/17 06:00 Ordered COMPREHENSIVE METABOLIC PANEL DAILY@0600 LAB 01/10/17 06:00 Ordered COMPREHENSIVE METABOLIC PANEL DAILY@0600 LAB 01/11/17 06:00 Ordered COMPREHENSIVE METABOLIC PANEL DAILY@0600 LAB 01/12/17 06:00 Ordered COMPREHENSIVE METABOLIC PANEL DAILY@0600 LAB 01/13/17 06:00 Ordered COMPREHENSIVE METABOLIC PANEL DAILY@0600 LAB 01/14/17 06:00 Ordered COMPREHENSIVE METABOLIC PANEL DAILY@0600 LAB 01/15/17 06:00 Ordered COMPREHENSIVE METABOLIC PANEL DAILY@0600 LAB 01/16/17 06:00 Ordered COMPREHENSIVE METABOLIC PANEL DAILY@0600 LAB 01/17/17 06:00 Ordered COMPREHENSIVE METABOLIC PANEL DAILY@0600 LAB 01/18/17 06:00 Ordered COMPREHENSIVE METABOLIC PANEL DAILY@0600 LAB 01/19/17 06:00 Ordered COMPREHENSIVE METABOLIC PANEL DAILY@0600 LAB 01/20/17 06:00 Ordered COMPREHENSIVE METABOLIC PANEL DAILY@0600 LAB 01/21/17 06:00 Ordered COMPREHENSIVE METABOLIC PANEL DAILY@0600 LAB 01/22/17 06:00 Ordered COMPREHENSIVE METABOLIC PANEL DAILY@0600 LAB 01/23/17 06:00 Ordered COMPREHENSIVE METABOLIC PANEL DAILY@0600 LAB 01/24/17 06:00 Ordered COMPREHENSIVE METABOLIC PANEL DAILY@0600 LAB 01/25/17 06:00 Ordered COMPREHENSIVE METABOLIC PANEL DAILY@0600 LAB 01/26/17 06:00 Ordered COMPREHENSIVE METABOLIC PANEL Stat LAB 01/06/17 15:45 Completed CREATINE KINASE Stat LAB 01/06/17 15:45 Completed GRAM STAIN Stat LAB 01/06/17 18:00 Ordered PROCALCITONIN Stat LAB 01/06/17 Ordered SPUTUM CULTURE Stat LAB 01/06/17 18:00 Uncollected TROPONIN I Stat LAB 01/06/17 15:45 Completed 0.9 % Sodium Chloride [Saline Flush] MEDS 01/06/17 15:34 Active 1 syr IVF PRN PRN 0.9 % Sodium Chloride [Saline Flush] MEDS 01/06/17 17:31 Ordered 1 syr IVF PRN PRN Acetaminophen [Tylenol] MEDS 01/06/17 18:02 Ordered 650 mg PO Q4H PRN Albuterol Sulfate 0.083% Neb [Albuterol 0.083% Neb] MEDS 01/06/17 17:29 Discontinued 1 vial NEB ONCE STA Ceftriaxone Sodium [Rocephin] MEDS 01/06/17 17:44 Discontinued 1 gm .ROUTE .STK-MED ONE Ceftriaxone Sodium [Rocephin] 1 gm MEDS 01/07/17 09:00 Ordered 0.9 % Sodium Chloride [Sodium Chloride] 50 ml IV DAILY Ceftriaxone Sodium [Rocephin] 1 gm MEDS 01/06/17 17:30 Active 0.9 % Sodium Chloride [Sodium Chloride] 50 ml IV ONCE Ipratropium/Albuterol Neb [Duoneb] MEDS 01/06/17 15:33 Discontinued 1 vial NEB ONCE STA Methylprednisolone Sod Succ/Pf [Solu-Medrol 125 mg] MEDS 01/06/17 17:29 Discontinued 125 mg IVP ONCE STA Sodium Chloride 0.9% [Sodium Chloride] 1,000 ml MEDS 01/06/17 17:31 Active IV 125 mls/hr Sodium Chloride 0.9% [Sodium Chloride] 1,000 ml MEDS 01/06/17 18:30 Ordered IV 75 mls/hr RESUSCITATION STATUS Routine OTHERS 01/06/17 18:02 Ordered CHEST, 2 VIEWS PA & LAT Stat RADS 01/06/17 15:[address] CHEST W/O CONTRAST Stat RADS 01/06/17 16:57 Completed Medications Generic Name Dose Route Start Last Admin Trade Name Freq PRN Reason Stop Dose Admin Acetaminophen 650 mg 01/06/17 18:02 Tylenol PO Q4H PRN Mild Pain Ceftriaxone Sodium 1 gm/ 50 mls @ 75 mls/hr 01/06/17 17:30 Sodium Chloride IV 01/06/17 18:09 ONCE STA Sodium Chloride 1,000 mls @ 125 mls/hr 01/06/17 17:31 Sodium Chloride IV 01/07/17 01:30 .Q8H STA Sodium Chloride 1,000 mls @ 75 mls/hr 01/06/17 18:30 Sodium Chloride IV .[id number] MIN Ceftriaxone Sodium 1 gm/ 50 mls @ 75 mls/hr 01/07/17 09:00 Sodium Chloride IV DAILY MIN Sodium Chloride 1 syr 01/06/17 15:34 Saline Flush IVF PRN PRN To flush IV Sodium Chloride 1 syr 01/06/17 17:31 Saline Flush IVF PRN PRN To flush IV Discontinued Medications Generic Name Dose Route Start Last Admin Trade Name Jairo PRN Reason Stop Dose Admin Albuterol Sulfate 1 vial 01/06/17 17:29 01/06/17 17:45 Albuterol 0.083% Neb NEB 01/06/17 17:30 1 vial ONCE STA Administration Albuterol/Ipratropium 1 vial 01/06/17 15:33 01/06/17 15:45 Duoneb NEB 01/06/17 15:34 1 vial ONCE STA Administration Methylprednisolone Sodium Succinate 125 mg 01/06/17 17:29 Solu-Medrol 125 Mg IVP 01/06/17 17:30 ONCE STA Vital Signs: Temp Pulse Resp BP Pulse Ox 01/06/17 15:15 99.1 F 72 20 160/50 H 95 Departure - Departure Time of Disposition: 18:07 Disposition: ADMITTED INPATIENT Discharge Problem: Chronic obstructive pulmonary disease with acute exacerbation Condition: Good Pt referred to PMD for follow-up: Yes (dr kaplan) Allergies/Adverse Reactions: Allergies gabapentin Adverse Reaction (Verified 11/07/16 09:54) Swelling STATES, "MAKES HIM SWELL AND HOLD WATER" Home Medications: Ambulatory Orders Glipizide [Glucotrol] 10 mg PO BID 05/24/13 Levothyroxine Sodium [Synthroid] 112 mcg PO QDAC 05/24/13 Polyethylene Glycol 3350 [Clearlax] 119 gm PO BEDTIME 05/24/13 Terazosin HCl [Hytrin] 5 mg PO DAILY 05/24/13 Acetaminophen [Tylenol] 1,000 mg PO BID 09/21/14 Cyanocobalamin/Folic Acid [Vitamin O35-Psjyj Acid Tablet] 5,000 mcg PO DAILY 04/28 Aspirin [Aspir 81] 81 mg PO DAILY 06/07/15 Torsemide 20 mg PO DAILY 06/07/15 Lorazepam [Ativan] 0.5 mg PO DAILY PRN 11/07/16 Potassium 99 mg PO DAILY 11/07/16
[2017-01-06 15:58] LABS: BASOPHILS % (AUTO) 0.5 % (0.0-3.0); EOSINOPHILS # (AUTO) 0.4 K/ul (0.0-0.7); EOSINOPHILS % (AUTO) 7.2 % (0.0-7.0); HEMATOCRIT 35.4 % (42.0-52.0); HEMOGLOBIN 11.9 g/dl (14.0-18.0); IMMATURE GRANULOCYTE % (AUTO) 0.2 % (0.0-5.0); LYMPHOCYTES # (AUTO) 0.9 K/uL (0.60-3.4); MEAN CORPUSCULAR HEMOGLOBIN 32.1 pg (27.0-31.0); MEAN CORPUSCULAR HGB CONC 33.6 (31.8-35.4); MEAN CORPUSCULAR VOLUME 95.4 fl (80.0-94.0); MONOCYTES # (AUTO) 0.3 K/uL (0.4-2.0); MONOCYTES % (AUTO) 5.6 (0-10); NEUTROPHILS # (AUTO) 4.2 K/ul (2.0-6.9); NEUTROPHILS % (AUTO) 71.5; PLATELET COUNT 102 10^3/uL (140-440); RED BLOOD COUNT 3.71 10^6/ul (4.70-6.10); WHITE BLOOD COUNT 5.86 K/ul (4.2-10.2)
[2017-01-06 16:02] LABS: ABG BASE EXCESS -4 (-2.0-2.0); ABG PCO2 43.2 mmHg (35-45); ABG PH 7.312 (7.35-7.45)
[2017-01-06 16:03] LABS: ABG HCO3 21.9 (22.0-26.0); ABG TCO2 23 (22.0-28.0)
[2017-01-06 16:23] LABS: ALBUMIN 4.3 g/dL (3.4-5.0); ALBUMIN/GLOBULIN RATIO 1.39; ANION GAP 18.5; BILIRUBIN,TOTAL 0.44 mg/dL (0.00-1.20); BUN/CREATININE RATIO 16.79; CALCIUM 9.8 mg/dL (8.2-10.2); CREATININE 1.31 mg/dL (0.60-1.10); POTASSIUM 4.5 mmol/L (3.5-5.1); TOTAL PROTEIN 7.4 g/dL (5.8-8.1); TROPONIN I 0.01 ng/ml (0.0000-0.4000)
--- NOTE | 2017-01-06 16:42 | DI ---
EXAM: PA and lateral views of the chest HISTORY: Cough and wheezing COMPARISON: Chest x-ray 11/07/2016 FINDINGS: The cardiomediastinal silhouette is normal. There is no pneumothorax or pleural effusion . There is no consolidation, nodule or mass. Lungs are hyperinflated. There is minimal airway thic kening in the lower lobes. The osseous structures demonstrate multilevel degenerative disease. IMPRESSION: 1. Minimal lower lobe airway thickening and hyperinflation suggestive of a component of chronic obs tructive pulmonary disease. Acute small airways inflammation/infection cannot be excluded. 2. Multilevel degenerative disease of the spine.
[2017-01-06] MEDS ORDERED: SOLU-MEDROL 125 MG IVP STA ×2 (17:29→17:49)
[2017-01-06] MEDS ORDERED: ALBUTEROL 0.083% NEB NEB STA (17:29)
[2017-01-06] MEDS ORDERED: ROCEPHIN 1 GM in SODIUM CHLORIDE 50 ML IV STA (17:30)
[2017-01-06] MEDS ORDERED: SODIUM CHLORIDE 1,000 ML IV STA (17:31)
--- NOTE | 2017-01-06 17:43 | CT ---
EXAM: CT of the chest without contrast. HISTORY: Abnormal chest x-ray. Shortness of breath. COMPARISON: Chest x-ray dated 01/06/2017. TECHNIQUE: Contiguous axial images at 5 mm intervals obtained from the lung apices to the upper abd omen. The study was performed without IV contrast. FINDINGS: The study is limited by mild motion artifact. There is no lobar consolidation or effusio n. There is no pleural thickening. The pulmonary fissures normal. In the posterior medial right l carlito base, there is a 1.0 x 0.6 cm subpleural opacity with central lucency. There are no well-define d nodules. The airways are widely patent. The pulmonary fissure appears normal. There are no sign ificant interstitial there are no significant emphysematous changes the heart size is within normal limits. There are heavy coronary artery calcifications. There is no significant mediastinal or hil ar adenopathy. There is no there is no axillary adenopathy. Limited views of the upper abdomen. T he visualized portion of the liver, spleen, pancreas and adrenal glands are normal. IMPRESSION: 1. No acute consolidation or effusion. 2. No significant emphysematous changes. 3. Ill-defined nodular density in the posterior right lung base measuring up to 1.0 x 0.6 cm. Serafin mmend follow-up in 3 months. 4. Coronary artery disease.
[2017-01-06] MEDS ORDERED: ROCEPHIN ONE (17:44)
[2017-01-06] MEDS ORDERED: TYLENOL PO PRN (18:02)
[2017-01-06] MEDS ORDERED: ATIVAN PO PRN (18:25)
[2017-01-06 19:35] VITALS: BMI 48.2
[2017-01-06] MEDS ORDERED: GLUCOTROL XL ONE (20:42)
[2017-01-06] MEDS ORDERED: TYLENOL ONE (20:42)
[2017-01-06] MEDS: ZESTRIL PO SCH (20:45)
[2017-01-06] MEDS: SODIUM CHLORIDE 1,000 ML IV SCH (20:45)
[2017-01-06] MEDS ORDERED: POLYETHYLENE GLYCOL 119 GM PO SCH (21:00)
[2017-01-06] MEDS ORDERED: NON-FORMULARY MEDICATION (Glipizide [Glucotrol] 10 MG) PO SCH ×22 (21:00)
[2017-01-06] MEDS ORDERED: TYLENOL PO SCH (21:00)
[2017-01-06] MEDS: DUONEB NEB SCH (21:00)
[2017-01-06] MEDS ORDERED: FLOVENT HFA 220 MCG IH ONE (22:22)
[2017-01-06] MEDS: FLOVENT HFA 220 MCG IH SCH (22:25)
[2017-01-07] MEDS: DUONEB NEB SCH ×6 (01:05→22:04)
[2017-01-07 04:50] LABS: BASOPHILS % (AUTO) 0.3 % (0.0-3.0); EOSINOPHILS # (AUTO) 0.1 K/ul (0.0-0.7); HEMATOCRIT 33.8 % (42.0-52.0); HEMOGLOBIN 11.3 g/dl (14.0-18.0); IMMATURE GRANULOCYTE % (AUTO) 0.3 % (0.0-5.0); LYMPHOCYTES # (AUTO) 0.4 K/uL (0.60-3.4); LYMPHOCYTES % (AUTO) 6.6 (10.0-50.0); MEAN CORPUSCULAR HGB CONC 33.4 (31.8-35.4); MEAN CORPUSCULAR VOLUME 95.8 fl (80.0-94.0); MONOCYTES # (AUTO) 0.1 K/uL (0.4-2.0); MONOCYTES % (AUTO) 1.4 (0-10); NEUTROPHILS # (AUTO) 5.3 K/ul (2.0-6.9); NEUTROPHILS % (AUTO) 90.4; PLATELET COUNT 111 10^3/uL (140-440); RED BLOOD COUNT 3.53 10^6/ul (4.70-6.10); WHITE BLOOD COUNT 5.91 K/ul (4.2-10.2)
[2017-01-07 05:13] LABS: ALBUMIN/GLOBULIN RATIO 1.29; ANION GAP 17.5; BILIRUBIN,TOTAL 0.35 mg/dL (0.00-1.20); BUN/CREATININE RATIO 17.36; CALCIUM 9.6 mg/dL (8.2-10.2); CREATININE 1.44 mg/dL (0.60-1.10); POTASSIUM 4.5 mmol/L (3.5-5.1); TOTAL PROTEIN 7.1 g/dL (5.8-8.1)
[2017-01-07] MEDS: SYNTHROID PO SCH ×2 (06:16→08:55)
[2017-01-07] MEDS: ASPIRIN EC PO SCH (08:55)
[2017-01-07] MEDS: ZESTRIL PO SCH ×2 (08:55→20:00)
[2017-01-07] MEDS: GLUCOTROL PO SCH ×2 (08:55→20:00)
[2017-01-07] MEDS: HYTRIN PO SCH (08:55)
[2017-01-07] MEDS: DEMADEX PO SCH (08:55)
[2017-01-07] MEDS: FLOVENT HFA 220 MCG IH SCH ×2 (08:56→20:00)
[2017-01-07] MEDS ORDERED: ROCEPHIN 1 GM in SODIUM CHLORIDE 50 ML IV SCH (09:00)
[2017-01-07] MEDS: NON-FORMULARY MEDICATION (Potassium [Potassium] 99 MG) PO SCH (10:04)
[2017-01-07] MEDS: SODIUM CHLORIDE 1,000 ML IV SCH (10:05)
[2017-01-07] MEDS: LOVENOX SUBCUT SCH (10:05)
[2017-01-07] MEDS ORDERED: MIRALAX PO SCH (21:00)
[2017-01-08] MEDS: DUONEB NEB SCH ×3 (02:02→10:15)
[2017-01-08] MEDS: SYNTHROID PO SCH (05:53)
[2017-01-08 06:07] LABS: BASOPHILS % (AUTO) 0.4 % (0.0-3.0); EOSINOPHILS # (AUTO) 0.5 K/ul (0.0-0.7); EOSINOPHILS % (AUTO) 6.4 % (0.0-7.0); HEMATOCRIT 34.6 % (42.0-52.0); HEMOGLOBIN 11.5 g/dl (14.0-18.0); IMMATURE GRANULOCYTE % (AUTO) 0.4 % (0.0-5.0); LYMPHOCYTES # (AUTO) 1.7 K/uL (0.60-3.4); LYMPHOCYTES % (AUTO) 20.6 (10.0-50.0); MEAN CORPUSCULAR HEMOGLOBIN 32.6 pg (27.0-31.0); MEAN CORPUSCULAR HGB CONC 33.2 (31.8-35.4); MONOCYTES # (AUTO) 0.6 K/uL (0.4-2.0); MONOCYTES % (AUTO) 7.4 (0-10); NEUTROPHILS # (AUTO) 5.5 K/ul (2.0-6.9); NEUTROPHILS % (AUTO) 64.8; PLATELET COUNT 112 10^3/uL (140-440); RED BLOOD COUNT 3.53 10^6/ul (4.70-6.10); WHITE BLOOD COUNT 8.46 K/ul (4.2-10.2)
[2017-01-08 06:23] LABS: ALBUMIN 4.3 g/dL (3.4-5.0); ALBUMIN/GLOBULIN RATIO 1.48; ANION GAP 16.6; BILIRUBIN,TOTAL 0.4 mg/dL (0.00-1.20); BUN/CREATININE RATIO 18.12; CALCIUM 10.2 mg/dL (8.2-10.2); CREATININE 1.49 mg/dL (0.60-1.10); POTASSIUM 4.6 mmol/L (3.5-5.1); TOTAL PROTEIN 7.2 g/dL (5.8-8.1)
[2017-01-08] MEDS: ASPIRIN EC PO SCH (08:07)
[2017-01-08] MEDS: ZESTRIL PO SCH (08:07)
[2017-01-08] MEDS: HYTRIN PO SCH (08:07)
[2017-01-08] MEDS: NON-FORMULARY MEDICATION (Potassium [Potassium] 99 MG) PO SCH (08:08)
[2017-01-08] MEDS: GLUCOTROL PO SCH (08:08)
[2017-01-08] MEDS: DEMADEX PO SCH (08:08)
[2017-01-08] MEDS: LOVENOX SUBCUT SCH (08:08)
[2017-01-08] MEDS: FLOVENT HFA 220 MCG IH SCH ×2 (09:02→10:00)
[2017-01-08 10:23] VITALS: BP 112/58; TEMP 97.5
--- NOTE | 2017-01-12 13:58 | HP ---
CHIEF COMPLAINT: Shortness of breath HISTORY OF PRESENT ILLNESS: The patient is a 76-year-old male admitted with shortness of breath about 10 p.m. the night before. He now remembered that he was cleaning his toilet bowl with Clorox and inhaled the fumes. Prior to that the patient had not had any problems. He presented to the Emergency Room and was seen by the doctor at 1537 01/06/17. The patient did complain of cough plus wheezing with shortness of breath but no fever, no sore throat. Lungs were noted to be having a good air exchange except for the wheezing. Studies were done and was given a nebulizer treatment times two in the emergency room and was initiated with Ceftriaxone 1 gm at 1730. The patient was then subsequently admitted. The patient never mentioned any of the chemicals from cleaning the toilet bowl in the emergency room records. He was also given 125 mg of Solu-Medrol at 1729 in the emergency room. PAST PERSONAL HISTORY: SURGICAL: Cataract extraction, tonsillectomy at age 13, cholecystectomy, vasectomy, removal of a cyst on the back. The patient had some hallucinations following anesthesia. MEDICAL: Diabetes mellitus, hypertension, COPD, chronic obstructive lung disease, dyslipidemia, anemia. peripheral arterial disease, asthma, thrombocytopenia, metabolic syndrome, diabetic neuropathy lower extremities, smoldering myeloma. FAMILY HISTORY: Mother had COPD, father had diabetes mellitus, sister had malignancy probably uterine or cervical. Mother also had cancer. SOCIAL HISTORY: The patient is and resides alone. He had stopped smoking then went to tobacco chewing and still persists today. He denied any alcohol use or substance abuse. MEDICATIONS: (At home) 1. Glipizide 10 mg twice a day 2. Hytrin 5 mg daily 3. Levothyroxine 112 mcg daily 4. Polyethylene Glycol 119 gm powder dissolved at bedtime 5. Vitamin B12 plus folic acid one daily 5,000 mcg 6. Tylenol 1000 mg twice a day 7. Aspirin 81 mg daily 8. Torsemide 20 mg daily 9. Lorazepam 0.5 mg p.o. daily p.r.n. 10. Potassium [id number] 99 mg 11. Lisinopril 10 mg twice a day ALLERGIES: GABAPENTIN REVIEW OF SYSTEMS: CONSTITUTIONAL: No fever, no chills. Some fatigue because of dyspnea. DENTAL FINANCIAL COORDINATOR: No headaches, no ataxia. The patient had some degenerative joint disease and walking is not straight. VISUAL: Denies any double, blurred or transient loss of vision. AUDITORY: The patient has a markedly reduced hearing. You have to raise your voice in order for him to hear what you are talking about. No tinnitus, no pain or drainage. RESPIRATORY: The patient has cough with some expiratory wheezing and shortness of breath. CARDIOVASCULAR: Denies any chest pain or chest tightness. GASTROINTESTINAL: No nausea, anorexia or diarrhea. GENITOURINARY: Denies any pain, frequency or urgency of urination. MUSCULOSKELETAL: The patient has joint pains involving knees as well as hips. INTEGUMENT: Denies any rash or any pruritus. ENDOCRINE: Negative except the patient has diabetes mellitus as well as significant obesity. HEMATOLOGIC: No history of prolonged bleeding. PSYCHIATRIC: Affect is okay. PHYSICAL EXAMINATION: GENERAL: This is a 76-year-old male who was admitted to the hospital because of shortness of breath, cough and wheezing. It began the day before with progression. VITAL SIGNS: Temperature 99.1, pulse 72, BP 160/50, respiratory rate 20, oxygen saturation 95%. Height 5'7", 309 lbs in the emergency room. The patient was weighed on the floor at 317. BMI 48.3. HEAD: Face is symmetrical and equal with no facial weakness. No remarkable tenderness in the frontomaxillary sinus areas to palpation and/or pressure. EYES: Pupils equal/reactive to light about 3 mm in size. Conjunctivae not pale. Sclerae not icteric. MOUTH: Unremarkable. THROAT: No inflammation, tumors or exudate. NECK: No masses. No bruit. No tenderness. No rigidity. CHEST: Essentially symmetrical and equal with acceptable expansion. LUNGS: Breath sounds are diminished but no rales. The patient has expiratory wheezing entire posterior chest wall as well as anteriorly. HEART: Audible and regular with good tones. No murmurs. ABDOMEN: Protuberant, soft with no remarkable tenderness. Bowel sounds are active, no masses, no bruits. LOWER EXTREMITIES: Edematous including the legs. 2+ pitting edema. Posterior tibials absent. UPPER EXTREMITIES: Symmetrical and equal. ASSESSMENT: 1. ASTHMA WITH ACUTE EPISODE SECONDARY TO CLOROX. 2. HISTORY OF CHRONIC OBSTRUCTIVE PULMONARY DISEASE. 3. HISTORY OF CHRONIC TOBACCO USE AND ABUSE, STOPPED. 4. HISTORY OF DIABETES MELLITUS TYPE 2. 5. HISTORY OF OBESITY, BMI 48.3. 6. HISTORY OF THROMBOCYTOPENIA. 7. HISTORY OF DIABETIC NEUROPATHY, BILATERAL LOWER EXTREMITIES. 8. HISTORY OF CHRONIC LUMBAR PAIN. 9. HISTORY OF SMOLDERING MYELOMA. 10. HISTORY OF HYPERTENSION. 11. PERIPHERAL ARTERIAL DISEASE, ABSENT POSTERIOR PULSES. 12. HISTORY OF ANEMIA. 13. HISTORY OF EXERTIONAL DYSPNEA. 14. CHRONIC TOBACCO CHEWING. MTDD
--- NOTE | 2017-01-14 14:08 | DS ---
PATIENT IDENTIFICATION: 76 year old male was admitted to the hospital via the emergency room because of increasing shortness of breath with cough with prior exposure to chemicals several hours prior to the initiation of symptoms. This patient is known to have asthma. HOSPITAL COURSE: The patient, while in the hospital, was continued on his previous medication consisting of Glipizide, Levothyroxine, Torsemide, Polyethylene Glycol, Vitamin B12 plus folic acid 5,000 mcg sublingually daily, Hytrin 5 mg daily, Aspirin 81 mg daily, Potassium OTC 99 mg daily. The patient on 01/07/2017 claimed that he is 100% better and indeed the expiratory wheezing, plus inspiratory has resolved. Breath sounds are heard and they are still somewhat diminished. The heart had normal sinus rhythm The patient had three CBC's done and remained essentially unchanged, except for the MCV that has gone higher to 98. The patient's initial blood gases at 41% FIO2 showed a PO2 of 68, a PCO2 43.2, pH of 7.312, oxygen saturation 92%. Chemistry showed changes compatible with chronic kidney disease stage III with E GFR of 53 on admission, 48 on 01/07/17 and 46 on 01/08/17. Blood sugar had climbed from 150 to 255 and down to 161. Liver panel normal. Alkaline phosphatase normal. Troponin and CK normal. Procalcitonin 0.05. BNP 60, normal. The patient continued to improve and on 01/08/2017 the patient was wanting to go home since yesterday. VITAL SIGNS: The patient's vital signs at 10 a.m. showed a temperature of 97.5 , pulse 79, blood pressure 112/58, respiratory rate 20, oxygen saturation at room air 97. The oxygen had been removed the day before. LUNGS: Clear to auscultation without any wheezing. HEART: Audible and regular with good tones. The patient is then discharged with Flovent 220 mcg per actuation to be used one twice a day and rinse the mouth totally after each inhalation. He also was prescribed Albuterol HFA, two puffs four times a day and spaced every 4 hours or more. This is prn. The patient while in the hospital had received a DuoNeb nebulizer and Methylprednisolone 125 mg IV piggyback, as well as Ceftriaxone 1 gram IV daily. The patient also was given Fluticasone or Flovent 220 mcg two puffs three times a day. Lovenox 40 mg subcutaneously also was administered daily. The patient at discharge was instructed to resume all of his previous medications and prescribed Flovent 220 mcg per actuation and one puff twice a day. He was also prescribed Albuterol sulfate HFA two puffs every six hours prn. The patient was instructed to see me in one week and before if any problems. FINAL DIAGNOSES: 1. ASTHMA WITH ACUTE EXACERBATION, IMPROVED 2. HYPERTENSION, CONTROLLED 3. DIABETES MELLITUS TYPE II 4. MARKEDLY ELEVATED BMI 49.3 5. CHRONIC KIDNEY DISEASE STAGE III 6. HISTORY OF ANEMIA, PERSISTENT 7. HISTORY OF HYPERTRIGLYCERIDEMIA 8. HISTORY OF SMOLDERING MYELOMA 9. HISTORY OF CHRONIC LUMBAR PAIN 10. PERIPHERAL ARTERIAL DISEASE, ABSENT POSTERIOR TIBIAL PULSES 11. HISTORY OF DIABETIC NEUROPATHY The patient was advised about exercise and weight loss which would improve his condition. He claimed that he had lost weight already. INESSA
== END 2017-01-08 13:58 | disposition home or self-care (01) | DRG 202 ==
LOC: ED 15:13 → MEDSURG B 18:20
PROVIDERS: ADMIT General Practice; ATTEND General Practice
DX: J45.901 Unspecified asthma with (acute) exacerbation (principal); J44.1 Chronic obstructive pulmonary disease with (acute) exacerbation; R06.02 Shortness of breath; E11.9 Type 2 diabetes mellitus without complications; E11.40 Type 2 diabetes mellitus with diabetic neuropathy, unspecified; I12.9 Hypertensive chronic kidney disease with stage 1 through stage 4 chronic kidney disease, or unspecified chronic kidney disease; E11.22 Type 2 diabetes mellitus with diabetic chronic kidney disease; N18.3 Chronic kidney disease, stage 3 (moderate); I10 Essential (primary) hypertension; R60.0 Localized edema; D64.89 Other specified anemias; E78.1 Pure hyperglyceridemia; I73.9 Peripheral vascular disease, unspecified; E03.9 Hypothyroidism, unspecified; T54.91XA Toxic effect of unspecified corrosive substance, accidental (unintentional), initial encounter; R05 Cough; E66.9 Obesity, unspecified; Z68.42 Body mass index [BMI] 45.0-49.9, adult; F17.220 Nicotine dependence, chewing tobacco, uncomplicated; Z79.899 Other long term (current) drug therapy
CPT/HCPCS: 36415; 80053; 82550; 82803; 82962; 83036; 83880; 84145; 84484; 85025; 87040; 93005; 93010; 94640; 96365; 96375; 99284

== ENCOUNTER 2017-01-08 23:01 | Inpatient (IN) | payer OTHER ==
[2017-01-08 23:05] VITALS: BMI 48.2
[2017-01-08 23:29] LABS: ABG PCO2 46.3 mmHg (35-45); ABG PH 7.363 (7.35-7.45)
[2017-01-08 23:30] LABS: ABG BASE EXCESS 1 (-2.0-2.0); ABG HCO3 26.3 (22.0-26.0); ABG TCO2 28 (22.0-28.0)
[2017-01-08] MEDS ORDERED: SOLU-MEDROL 125 MG IVP STA (23:30)
[2017-01-08] MEDS ORDERED: DUONEB NEB STA (23:30)
--- NOTE | 2017-01-08 23:50 | ED.PDOC ---
General ED Provider: Dr. HARRY BASS Chief Complaint: Weakness Stated Complaint: PT was discharged today after two days of admission for COPD. Upon using his new home inhailed steroids he started feeling dizzy, weak and naueated. He then called ambulance to bring him to the ER. Time Seen by Physician: 23:47 Mode of Arrival: Ambulance Information Source: Patient, EMT Exam Limitations: No limitations [facility] Nursing and Triage Documentation Reviewed and Agree: Yes Review of Systems - Review Of Systems Constitutional: Reports: Weakness, Loss of appetite Eyes: Reports: No symptoms Ears, Nose, Mouth, Throat: Reports: No symptoms Respiratory: Reports: Short of air, Wheezing Cardiac: Reports: Edema, Lightheadedness. Denies: Chest pain : Reports: No symptoms Musculoskeletal: Reports: No symptoms Neurological: Reports: Anxiety All Other Systems: Reviewed and Negative Past Medical History - Past Medical History Endocrine: Reports: DM 2, Hypothyroid Cardiovascular: Reports: Hypertension Respiratory: Reports: COPD Hematological: Reports: None Gastrointestinal: Reports: None Genitourinary: Reports: None Neuro/Psych: Reports: None Musculoskeletal: Reports: None Cancer: Reports: None - Surgical History General Surgical History: Reports: Appendectomy, Cholecystectomy, Orthopedic, Back Surgery - Family History Family History: Reports: None - Social History Smoking Status: Former smoker, Dips snuff Hx Substance Use: No Alcohol Screening: None - Immunizations Tetanus Shot up to Date: (UNKNOWN) Physical Exam - Physical Exam Appearance: Ill-appearing, Obese Ill-appearing: Moderate Eyes: RUTH ANN, EOMI, Conjunctiva clear ENT: Ears normal, Nose normal, Oropharynx normal Neck: Supple Respiratory: Airway patent, Breath sounds diminished, Wheezes Cardiovascular: Pulses normal, No rub, No murmur, Bradycardia GI/: Soft (obese ), Nontender, No masses, Bowel sounds normal, No Organomegaly Musculoskeletal: Edema (3 + pitting ) Skin: Warm, Dry, Normal color Neurological: Sensation intact, Motor intact, Reflexes intact, Cranial nerves intact, Alert, Oriented Psychiatric: Anxious Interpretation - Radiology Interpretation Radiology Interpretation By: Radiologist Radiology Results: Negative Exam Interpreted: CT Scan (head ) - EKG Interpretation Time of EKG #1: 23:34 Rhythm: Other (junctional) [place]: Left ST Segment: Normal Interpretation: Junctional Rhythm Re-Evaluation - Re-Evaluation Time of Re-Evaluation: 00:39 Status: Improved Physician Notification - Case Discussed Physician Notified: Dr Damon Time of Notification: 00:58 (Keep in the ER until morning Dr Singer will come see him. ) Critical Care Note - Critical Care Note Total Time (mins): 20 Course - Course Hematology/Chemistry: 01/08/17 23:50 01/08/17 23:50 Orders, Labs, Meds: Lab Review 01/08/17 01/08/17 23:16 23:50 WBC 7.77 RBC 3.43 L Hgb 11.2 L Hct 33.0 L MCV 96.2 H MCH 32.7 H MCHC 33.9 RDW Coeff of Torri 13.6 Plt Count 116 L Immature Gran % (Auto) 0.3 Neut % (Auto) 70.7 Lymph % (Auto) 11.8 [place] % (Auto) 6.2 Eos % (Auto) 10.4 H Baso % (Auto) 0.6 Immature Gran # (Auto) 0.0 Neut # 5.5 Lymph # 0.9 [place] # 0.5 Eos # 0.8 H Baso # 0.1 Puncture Site Lrad O2 Saturation 91.0 L ABG pH 7.363 ABG pCO2 46.3 H ABG pO2 63.0 L ABG HCO3 26.3 H ABG Total CO2 28 ABG Base Excess 1 Shilo Test + FiO2 % 21.0 Sodium 135 L Potassium 4.6 Chloride 102 Carbon Dioxide 21 L Anion Gap 16.6 BUN 28 H Creatinine 1.41 H Estimated GFR (MDRD) 49.00 BUN/Creatinine Ratio 19.85 Glucose 146 H Calcium 9.8 Total Bilirubin 0.41 AST 26 ALT 25 Alkaline Phosphatase 58 Total Protein 6.7 Albumin 4.1 Globulin 2.6 Albumin/Globulin Ratio 1.58 Orders Category Date Time Status ABG DRAW REQUEST Stat CARDIO 01/08/17 23:16 Completed EKG-(ED ONLY) Stat CARDIO 01/08/17 23:31 Completed NEBULIZER TREATMENT Stat CARDIO 01/08/17 23:31 Completed ABG Stat LAB 01/08/17 23:16 Completed BLOOD CULTURE Stat LAB 01/08/17 23:50 Received CBC W/ AUTO DIFF Stat LAB 01/08/17 23:50 Completed COMPREHENSIVE METABOLIC PANEL Stat LAB 01/08/17 23:50 Completed UA [URINALYSIS C & S IF INDICATED] Stat LAB 01/08/17 23:31 Uncollected Ipratropium/Albuterol Neb [Duoneb] MEDS 01/08/17 23:30 Discontinued 1 vial NEB ONCE STA Methylprednisolone Sod Succ/Pf [Solu-Medrol 125 mg] MEDS 01/08/17 23:30 Discontinued [address] HEAD W/O CONTRAST Stat RADS 01/08/17 23:30 Completed Medications Discontinued Medications Generic Name Dose Route Start Last Admin Trade Name Jairo PRN Reason Stop Dose Admin Albuterol/Ipratropium 1 vial 01/08/17 23:30 01/08/17 23:50 Duoneb NEB 01/08/17 23:31 1 vial ONCE STA Administration Methylprednisolone Sodium Succinate 125 mg 01/08/17 23:30 01/08/17 23:42 Solu-Medrol 125 Mg IVP 01/08/17 23:31 125 mg ONCE STA Administration Vital Signs: Temp Pulse Resp BP Pulse Ox 01/08/17 23:06 97 F L 56 L 24 138/81 94 L Departure - Departure Time of Disposition: 00:39 Disposition: PLACED OBSERVATION Discharge Problem: COPD with acute exacerbation, Dizziness Asthma Qualifiers: Asthma severity: mild intermittent Asthma complication type: uncomplicated Qualifier Code: (J45.20) Mild intermittent asthma, uncomplicated Instructions: Asthma (ED) Condition: Fair Pt referred to PMD for follow-up: Yes Additional Instructions: continue home medications Follow up with Dr Damon Allergies/Adverse Reactions: Allergies gabapentin Adverse Reaction (Verified 01/08/17 23:10) Swelling STATES, "MAKES HIM SWELL AND HOLD WATER" Home Medications: Ambulatory Orders Glipizide [Glucotrol] 10 mg PO BID 05/24/13 Levothyroxine Sodium [Synthroid] 112 mcg PO QDAC 05/24/13 Polyethylene Glycol 3350 [Clearlax] 119 gm PO BEDTIME 05/24/13 Terazosin HCl [Hytrin] 5 mg PO DAILY 05/24/13 Acetaminophen [Tylenol] 1,000 mg PO BID 09/21/14 Cyanocobalamin/Folic Acid [Vitamin H00-Svrvg Acid Tablet] 5,000 mcg PO DAILY 04/28 Aspirin [Aspir 81] 81 mg PO DAILY 06/07/15 Torsemide 20 mg PO DAILY 06/07/15 Lorazepam [Ativan] 0.5 mg PO DAILY PRN 11/07/16 Potassium 99 mg PO DAILY 11/07/16 Albuterol Sulfate [Proair Hfa] 2 puff IH Q6H #2 puff 01/08/17 Fluticasone Propionate 220 Mcg [Flovent Hfa 220 Mcg] 1 puff IH BID #1 puff 01/08 Disposition Discussed With: Patient
[2017-01-09 00:11] LABS: BASOPHILS # (AUTO) 0.1 K/uL (0-0.2); BASOPHILS % (AUTO) 0.6 % (0.0-3.0); EOSINOPHILS # (AUTO) 0.8 K/ul (0.0-0.7); EOSINOPHILS % (AUTO) 10.4 % (0.0-7.0); HEMOGLOBIN 11.2 g/dl (14.0-18.0); IMMATURE GRANULOCYTE % (AUTO) 0.3 % (0.0-5.0); LYMPHOCYTES # (AUTO) 0.9 K/uL (0.60-3.4); LYMPHOCYTES % (AUTO) 11.8 (10.0-50.0); MEAN CORPUSCULAR HEMOGLOBIN 32.7 pg (27.0-31.0); MEAN CORPUSCULAR HGB CONC 33.9 (31.8-35.4); MEAN CORPUSCULAR VOLUME 96.2 fl (80.0-94.0); MONOCYTES # (AUTO) 0.5 K/uL (0.4-2.0); MONOCYTES % (AUTO) 6.2 (0-10); NEUTROPHILS # (AUTO) 5.5 K/ul (2.0-6.9); NEUTROPHILS % (AUTO) 70.7; PLATELET COUNT 116 10^3/uL (140-440); RED BLOOD COUNT 3.43 10^6/ul (4.70-6.10); WHITE BLOOD COUNT 7.77 K/ul (4.2-10.2)
[2017-01-09 00:32] LABS: ALBUMIN 4.1 g/dL (3.4-5.0); ALBUMIN/GLOBULIN RATIO 1.58; ANION GAP 16.6; BILIRUBIN,TOTAL 0.41 mg/dL (0.00-1.20); BUN/CREATININE RATIO 19.85; CALCIUM 9.8 mg/dL (8.2-10.2); CREATININE 1.41 mg/dL (0.60-1.10); POTASSIUM 4.6 mmol/L (3.5-5.1); TOTAL PROTEIN 6.7 g/dL (5.8-8.1)
--- NOTE | 2017-01-09 00:46 | CT ---
EXAM: CT head without contrast. HISTORY: Dizziness. PROCEDURE: Contiguous axial CT images of the head without contrast with coronal and sagittal reform ats. FINDINGS: There is diffuse cerebral atrophy. The ventricles and basal cisterns are normal in size a nd configuration. No evidence of mass or midline shift. No intracranial hemorrhage or evidence of l arge vessel infarct. No extra-axial fluid collection. There is minimal mucosal thickening in the pa ranasal sinuses. The mastoid air cells are well-aerated. Impression: No intracranial hemorrhage or evidence of large vessel infarct. Diffuse cerebral atrophy. Minimal paranasal sinusitis.
[2017-01-09] MEDS ORDERED: ATIVAN PO PRN (01:04)
[2017-01-09] MEDS: DUONEB NEB SCH ×6 (01:55→21:00)
[2017-01-09 03:01] LABS: BILIRUBIN,URINE Negative (NEGATIVE); KETONES,URINE Negative (NEGATIVE); LEUKOCYTE ESTERASE ,URINE Negative (NEGATIVE); NITRITE,URINE Negative (NEGATIVE); PH,URINE 5.5 (5-9); PROTEIN,URINE Negative (NEGATIVE); URINE, BLOOD Negative (NEGATIVE)
[2017-01-09 03:02] LABS: ADD URINE MICROSCOPIC NO
[2017-01-09] MEDS: SOLU-MEDROL 125 MG IVP SCH ×3 (04:06→20:54)
[2017-01-09] MEDS ORDERED: NON-FORMULARY MEDICATION (Glipizide [Glucotrol] 10 MG) PO SCH ×22 (09:00)
[2017-01-09] MEDS ORDERED: TYLENOL PO SCH (09:00)
[2017-01-09] MEDS: SODIUM CHLORIDE 1,000 ML IV SCH (09:32)
[2017-01-09] MEDS: DEMADEX PO SCH (10:15)
[2017-01-09] MEDS: ASPIRIN EC PO SCH (10:15)
[2017-01-09] MEDS: FLOVENT HFA 220 MCG IH SCH ×2 (10:15→20:06)
[2017-01-09] MEDS: LOVENOX SUBCUT SCH (10:16)
[2017-01-09] MEDS: HYTRIN PO SCH (10:16)
[2017-01-09] MEDS: SYNTHROID PO SCH (10:16)
[2017-01-09] MEDS: NON-FORMULARY MEDICATION (Potassium [Potassium] 99 MG) PO SCH (10:16)
[2017-01-09] MEDS: ZESTRIL PO SCH ×2 (10:17→20:06)
[2017-01-09 11:24] LABS: BASOPHILS % (AUTO) 0.3 % (0.0-3.0); EOSINOPHILS # (AUTO) 0.1 K/ul (0.0-0.7); EOSINOPHILS % (AUTO) 0.8 % (0.0-7.0); HEMATOCRIT 38.5 % (42.0-52.0); HEMOGLOBIN 12.6 g/dl (14.0-18.0); IMMATURE GRANULOCYTE % (AUTO) 0.2 % (0.0-5.0); LYMPHOCYTES # (AUTO) 0.4 K/uL (0.60-3.4); LYMPHOCYTES % (AUTO) 6.4 (10.0-50.0); MEAN CORPUSCULAR HEMOGLOBIN 31.4 pg (27.0-31.0); MEAN CORPUSCULAR HGB CONC 32.7 (31.8-35.4); MONOCYTES # (AUTO) 0.1 K/uL (0.4-2.0); MONOCYTES % (AUTO) 1.1 (0-10); NEUTROPHILS # (AUTO) 5.7 K/ul (2.0-6.9); NEUTROPHILS % (AUTO) 91.2; PLATELET COUNT 141 10^3/uL (140-440); RED BLOOD COUNT 4.01 10^6/ul (4.70-6.10); WHITE BLOOD COUNT 6.27 K/ul (4.2-10.2)
[2017-01-09 12:14] LABS: BLOOD UREA NITROGEN 29 mg/dL (7-18); BUN/CREATININE RATIO 17.36; CALCIUM 10.1 mg/dL (8.2-10.2); CARBON DIOXIDE 22 mmol/L (23-31); CHLORIDE 100 mmol/L (98-107); CREATINE KINASE 308 U/L; CREATININE 1.67 mg/dL (0.60-1.10); GLUCOSE 264 mg/dL (82-115); SODIUM 134 mmol/L (136-145)
[2017-01-09 12:18] LABS: CREATINE KINASE MB 8.3 ng/ml (0.0-3.6)
[2017-01-09] MEDS: ANTIVERT PO SCH ×2 (15:53→20:07)
[2017-01-09] MEDS: MIRALAX PO SCH (20:06)
[2017-01-09] MEDS: VALIUM PO SCH (20:07)
[2017-01-09] MEDS ORDERED: POLYETHYLENE GLYCOL 119 GM PO SCH (21:00)
[2017-01-10] MEDS: DUONEB NEB SCH ×4 (01:03→14:02)
[2017-01-10] MEDS: SOLU-MEDROL 125 MG IVP SCH ×2 (06:03→13:43)
[2017-01-10] MEDS: VALIUM PO SCH ×3 (06:10→22:45)
[2017-01-10] MEDS: SYNTHROID PO SCH (06:10)
[2017-01-10] MEDS: ANTIVERT PO SCH ×3 (06:11→22:45)
[2017-01-10 07:43] LABS: BASOPHILS % (AUTO) 0.1 % (0.0-3.0); EOSINOPHILS % (AUTO) 0.1 % (0.0-7.0); HEMATOCRIT 34.3 % (42.0-52.0); HEMOGLOBIN 11.5 g/dl (14.0-18.0); IMMATURE GRANULOCYTE % (AUTO) 0.6 % (0.0-5.0); LYMPHOCYTES # (AUTO) 0.4 K/uL (0.60-3.4); LYMPHOCYTES % (AUTO) 4.1 (10.0-50.0); MEAN CORPUSCULAR HEMOGLOBIN 32.1 pg (27.0-31.0); MEAN CORPUSCULAR HGB CONC 33.5 (31.8-35.4); MEAN CORPUSCULAR VOLUME 95.8 fl (80.0-94.0); MONOCYTES # (AUTO) 0.2 K/uL (0.4-2.0); NEUTROPHILS # (AUTO) 8.2 K/ul (2.0-6.9); NEUTROPHILS % (AUTO) 93.1; PLATELET COUNT 127 10^3/uL (140-440); RED BLOOD COUNT 3.58 10^6/ul (4.70-6.10)
[2017-01-10 08:56] LABS: ANION GAP 17.6; BUN/CREATININE RATIO 20.23; CALCIUM 9.7 mg/dL (8.2-10.2); CREATININE 1.68 mg/dL (0.60-1.10); POTASSIUM 4.6 mmol/L (3.5-5.1)
[2017-01-10] MEDS: ASPIRIN EC PO SCH (08:57)
[2017-01-10] MEDS: DEMADEX PO SCH (08:57)
[2017-01-10] MEDS: HYTRIN PO SCH (08:57)
[2017-01-10] MEDS: ZESTRIL PO SCH ×2 (08:57→22:45)
[2017-01-10] MEDS: NON-FORMULARY MEDICATION (Potassium [Potassium] 99 MG) PO SCH (08:58)
[2017-01-10] MEDS: LOVENOX SUBCUT SCH (08:58)
[2017-01-10] MEDS: FLOVENT HFA 220 MCG IH SCH ×2 (08:59→22:45)
[2017-01-10] MEDS: SODIUM CHLORIDE 1,000 ML IV SCH ×2 (11:27→17:54)
[2017-01-10] MEDS: PREDNISONE PO SCH (17:54)
[2017-01-10] MEDS: MIRALAX PO SCH (22:45)
[2017-01-11] MEDS ORDERED: SYNTHROID ONE ×2 (05:26)
[2017-01-11 05:44] LABS: BASOPHILS % (AUTO) 0.1 % (0.0-3.0); EOSINOPHILS % (AUTO) 0.1 % (0.0-7.0); HEMATOCRIT 36.1 % (42.0-52.0); HEMOGLOBIN 11.9 g/dl (14.0-18.0); IMMATURE GRANULOCYTE % (AUTO) 0.6 % (0.0-5.0); LYMPHOCYTES # (AUTO) 0.6 K/uL (0.60-3.4); LYMPHOCYTES % (AUTO) 6.5 (10.0-50.0); MEAN CORPUSCULAR HEMOGLOBIN 31.9 pg (27.0-31.0); MEAN CORPUSCULAR VOLUME 96.8 fl (80.0-94.0); MONOCYTES # (AUTO) 0.3 K/uL (0.4-2.0); NEUTROPHILS # (AUTO) 7.6 K/ul (2.0-6.9); NEUTROPHILS % (AUTO) 89.7; PLATELET COUNT 140 10^3/uL (140-440); RED BLOOD COUNT 3.73 10^6/ul (4.70-6.10); WHITE BLOOD COUNT 8.45 K/ul (4.2-10.2)
[2017-01-11 06:07] LABS: ANION GAP 15.6; BUN/CREATININE RATIO 23.78; CALCIUM 9.8 mg/dL (8.2-10.2); CREATININE 1.64 mg/dL (0.60-1.10); POTASSIUM 4.6 mmol/L (3.5-5.1)
[2017-01-11] MEDS: ANTIVERT PO SCH ×2 (06:13→12:33)
[2017-01-11] MEDS: VALIUM PO SCH ×2 (06:13→12:33)
[2017-01-11] MEDS: SYNTHROID PO SCH (06:16)
[2017-01-11] MEDS: PREDNISONE PO SCH ×3 (08:19→18:09)
[2017-01-11] MEDS: DEMADEX PO SCH (08:19)
[2017-01-11] MEDS: FLOVENT HFA 220 MCG IH SCH (08:19)
[2017-01-11] MEDS: ASPIRIN EC PO SCH (08:19)
[2017-01-11] MEDS: HYTRIN PO SCH (08:19)
[2017-01-11] MEDS: ZESTRIL PO SCH (08:20)
[2017-01-11] MEDS: LOVENOX SUBCUT SCH (08:20)
[2017-01-11] MEDS: NON-FORMULARY MEDICATION (Potassium [Potassium] 99 MG) PO SCH (08:21)
[2017-01-11 10:53] VITALS: BP 151/67; TEMP 98
[2017-01-11] MEDS: SODIUM CHLORIDE 1,000 ML IV SCH (16:49)
--- NOTE | 2017-01-12 10:52 | ECHO2D ---
Date of Exam: 01/10/17 Ordering Physician: HOSPITALIST--CLIVE LOVE Reason for Echo: SHORTNESS OF AIR, EVALUATE LV FUNCTION, COPD, HYPERTENSION, POSITIVE CKMB-[id number] M-Mode Normal Adult Results LV Dimensions Normal Adult Results AoV Opening excursions >1.6 >1.6 LVEDD-base- 3.5-5.8 5.1 Ao root dimensions 2.0-3.7 3.5 LVESD-base- 3.1-4.6 L. Atrium dimensions 1.9-3.8 3.7 Post. Wall thickness 0.8-1.1 1.3 IV septum (thickness) 0.7-1.2 1.2 Post. Wall excursion 0.72-1.3 NORMAL Septal motion NORMAL Systolic motion R. Ventricular cavity 1.5-2.0 NORMAL LVEF 60% 62% Paradoxical septal wall motion NORMAL 2-D : 2-D M Mode Echocardiogram was performed using apical four chamber and left parasternal long and short axis views. Mitral, tricuspid and aortic valves appear to be normal. Contractility of the left ventricle seems to be normal, so is the cavity size. Left atrial cavity size and aortic root appear to be normal. There is no pericardial effusion. There is no thrombus noted in the left ventricular or left aortic cavity. No mitral valve prolapse noted. M-MODE: MV: NORMAL AV: NORMAL TV: NORMAL PV: CHAMBER SIZE: NORMAL WALL MOTION: NORMAL PERICARDIUM: NORMAL INTERPRETATION: 1. BORDERLINE LEFT VENTRICULAR HYPERTROPHY 2. NORMAL LEFT VENTRICULAR CONTRACTILITY 3. NORMAL VALVES DIFFICULT STUDY--BODY HABITUS MTDD
--- NOTE | 2017-01-13 14:37 | HP ---
CHIEF COMPLAINT: Shortness of breath, wheezing, generalized weakness and diaphoresis. HISTORY OF PRESENT ILLNESS: The patient was released 01/08/17 after confinement because of shortness of breath with wheezing after exposure to a chemical. The patient was discharged without any wheezing and was discharged with Flovent and Albuterol HFA. The patient claimed that after he used the inhaler that he experienced light- headedness and generalized weakness and some vertigo that he had to crawl on the floor with brief diaphoresis. He called the ambulance and was then brought to [facility]. Vital signs in the emergency room showed a temperature of 97, pulse 56, respiratory rate 24, oxygen saturation 94% on room air. Blood pressure 138/81. He weighed 317 lbs and BMI 48.2. This patient is receiving the same medication as he had received in the hospital. The patient was kept in the emergency room after the emergency room physician discussed the case with me. I did see him in the morning of 01/09/17 and the patient's history consisted of diaphoresis with generalized weakness with vertigo but he has to crawl. The dizziness had resolved and he slept through the substation superintendent hours. Because of the diaphoresis and the dizziness for the same medication, this patient was readmitted to the hospital. I was not informed by the emergency room physician with regards to the vertigo where he has to crawl as well as the diaphorosis that was significant as described by the patient. PAST PERSONAL HISTORY: This patient had a recent episode of asthma with exacerbation requiring admission on 01/06/17 with chemical exposure. Also is hypertensive with diabetes mellitus, smoldering myeloma, hypothyroidism, dyslipidemia, COPD. 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 He had lumbar surgery, cholecystectomy, tonsillectomy, immobile with cyst in the back and amputation of the left big toe. FAMILY HISTORY: Mother had COPD, father had diabetes mellitus, sister had malignancy probably uterine. Mother also had a malignancy. SOCIAL HISTORY: The patient is and resides alone, is self sufficient. History of smoking some time ago but replaced with tobacco chewing and still is continuing the habit until this admission. He denied any significant alcohol use or substance abuse. MEDICATIONS: (Prior to this admission) Terazosin, Lisinopril, Torsemide, Flovent, Albuterol HFA, Clearlax, Aspirin 81 mg daily, potassium 99 mg, Levothyroxine, Tylenol 1000 mg twice a day, Lorazepam 5/10 mg daily, Glipizide 10 mg twice a day ALLERGIES: GABAPENTIN REVIEW OF SYSTEMS: CONSTITUTIONAL: The patient had no fever or chills but has some fatigue because of dyspnea and tachypnea with wheezing as well as generalized weakness. [employer] FIELD COORDINATOR: No headaches but has weakness, generalized, more so on the lower extremity and has to crawl with vertigo. Also had some diaphoresis. VISUAL: Denies any blurred vision, double vision or transient loss of vision. AUDITORY: Hearing is markedly diminished. He does have some dizziness maybe vestibulocochlear in origin. No pain, no drainage. RESPIRATORY: The patient has shortness of breath with wheezing. CARDIOVASCULAR: Denies any chest pain or chest tightness but the patient did have diaphoresis with weakness. GASTROINTESTINAL: The patient has no nausea or vomiting. No diarrhea. GENITOURINARY: The patient had no spontaneous elimination of urine or bowels during this episode. Denies any burning on urination. MUSCULOSKELETAL: The patient does have some hip problems and bone problems mostly involving the knee. The patient keeps mentioning that he has cancer of the hip bones. I am not certain if that is actually correct. INTEGUMENT: Denies any rash or any pruritus. ENDOCRINE: The patient has polyuria or polydipsia. He is diabetic as well as markedly elevated BMI. HEMATOLOGIC: Negative. PSYCHIATRIC: Negative. PHYSICAL EXAMINATION: GENERAL: This is a 76-year-old male admitted to the hospital on from the emergency room. VITAL SIGNS: Temperature 97, pulse 66, BP 161/84 left; 129/58 right. Respiratory rate 18. Weight 317 lbs. Height 5'8". BMI 48.2. HEAD: Unremarkable. Face is symmetrical and equal with no facial weakness. Denies any remarkable tenderness to palpation and/or pressure in the frontomaxillary sinus areas. EYES: Pupils equal/reactive to light about 3 mm in size. Conjunctivae slightly pale. Sclerae not icteric. Pupils are about 3 mm in size. MOUTH: Unremarkable. The patient does have tobacco in the lower left. Mucosa is rough but no ulceration. THROAT: No inflammation, tumors or exudate. NECK: No masses. No bruit. No tenderness. No rigidity. CHEST: Essentially symmetrical and equal with acceptable expansion. LUNGS: Breath sounds are heard on both sides with some expiratory wheeze in the upper posterior chest field. HEART: Audible and regular with good tones. No murmurs. ABDOMEN: Protuberant, soft and no remarkable tenderness. LOWER EXTREMITIES: Edematous with 2+ pitting leg edema. Posterior tibials are absent. UPPER EXTREMITIES: Symmetrical and equal. ASSESSMENT: 1. RECURRENT ASTHMATIC EXACERBATION. 2. HISTORY OF CHRONIC OBSTRUCTIVE PULMONARY DISEASE 3. HISTORY OF CHRONIC TOBACCO USE AND ABUSE, STOPPED 4. HISTORY OF DIABETES MELLITUS TYPE 2 5. HISTORY OF OBESITY, BMI 48.3 6. HISTORY OF THROMBOCYTOPENIA 7. HISTORY OF DIABETIC NEUROPATHY, BILATERAL LOWER EXTREMITIES 8. HISTORY OF CHRONIC LUMBAR PAIN 9. HISTORY OF SMOLDERING MYELOMA 10. HISTORY OF HYPERTENSION 11. PERIPHERAL ARTERIAL DISEASE, ABSENT POSTERIOR PULSES 12. HISTORY OF ANEMIA 13. HISTORY OF EXERTIONAL DYSPNEA MTDD
--- NOTE | 2017-01-14 08:56 | CONS ---
DATE OF CONSULTATION: 01/09/17 REASON FOR CONSULTATION: CK-MB 8.3 positive. HISTORY OF PRESENT ILLNESS: 76-year-old white male was seen in the Emergency Room by ER attending with complaint of being dizzy and weak. The patient had that spell at home after he took Flovent HFA. According to him it went to his head and got lightheaded, room was spinning around like 500 times a minute according to the patient and he had profuse sweating. He denies any chest pain or blackout spell. He had to sit down to get himself together. REVIEW OF SYSTEMS: CONSTITUTIONAL: Weakness and fatigue. No night sweats. No fever or chills. HEENT: Eyes: No visual changes. No eye pain. No eye discharge. ENT: No runny nose. No epistaxis. No sinus pain. No sore throat. No odynophagia. No ear pain. No congestion. RESPIRATORY: Mild cough; at times wheezing but no hemoptysis. CARDIOVASCULAR: No angina symptoms. No CHF symptoms. No atypical chest pain for CAD. No palpitations. No shortness of breath. No PND, no orthopnea. GASTROINTESTINAL: Nausea, no vomiting. Nausea has subsided that accompanied dizziness. No abdominal pain. No diarrhea or constipation. No hematemesis. No hematochezia. GENITOURINARY: No urgency. No frequency. No dysuria. No hematuria. No obstructive symptoms. No discharge. No pain. No significant abnormal bleeding. MUSCULOSKELETAL: No musculoskeletal pain. No joint swelling. WAITER/WAITRESS HEAD: Dizziness with sweating. The dizziness has settled down and is feeling somewhat better. No headache. No neck pain. No syncope. No seizures. PSYCHIATRIC: Not anxious. No depression. No suicidal thoughts. No homicidal thoughts. SKIN: No rash. No lesions. No wounds. ENDOCRINE: No unexplained weight loss. No weight gain. HEMATOLOGIC/LYMPHATIC: No anemia. No purpura. No petechiae. No prolonged or excessive bleeding. No palpable lymph nodes. MEDICATIONS: 1. Glipizide 10 mg p.o. twice a day 2. Levothyroxine 112 mcg p.o. daily 3. Hytrin 5 mg p.o. daily 4. Aspirin 81 mg p.o. daily 5. Torsemide 20 mg p.o. daily 6. Lisinopril 10 mg twice a day 7. Lorazepam 0.5 mg p.o. daily 8. Potassium 99 mg p.o. daily 9. Albuterol (ProAir HFA) two puffs p.o. q.i.d. 10. Flovent HFA which was started recently one puff twice a day ALLERGIES: GABAPENTIN PAST MEDICAL/SURGICAL HISTORY: 1. Diabetes mellitus 2. Hypothyroidism 3. Morbid obesity with BMI of 48 4. Hypertension 5. Prostatic hypertrophy 6. Chronic lung disease SOCIAL/PERSONAL/FAMILY HISTORY: The patient is nonsmoker. No alcohol abuse. He lives alone. He does all activities of daily living. No history of falls. PHYSICAL EXAMINATION: GENERAL: The patient is oriented to time, place and person. VITAL SIGNS: Temperature 97, pulse 66, respiratory rate 18, BP 138/80, pulse ox 94%. HEENT: Head normocephalic, atraumatic. Eyes: Extraocular muscles are intact. Pupils are equal, round and reactive to light and accommodation. Ears: No lesions. Nose appeared normal. Throat: No exudate or erythema. NECK: Supple. No JVP, no carotid bruit. No lymphadenopathy or thyromegaly. LUNGS: Clear to auscultation. Percussion note normal. Chest symmetrical. HEART: S1, S2, no S3. No murmurs. No cyanosis or clubbing. No ascites. Pulses: Dorsalis pedis and posterior tibial pulses +1 to +2 both sides. ABDOMEN: Soft. Nontender. Bowel sounds active. No CVA tenderness. No mass felt. EXTREMITIES: No edema. Full range of motion of all extremities, equal. NEUROLOGIC: No focal deficit. Cranial nerves II through XII are grossly intact. No headache, no double vision or headache. SKIN: Not dry. Intact. Turgor - normal. LYMPHATIC: No palpable lymph nodes/no lymphedema. MUSCULOSKELETAL: Normal joints with no swelling. Muscle tone is normal. LABS: Hemoglobin 12.6, hematocrit 38, WBC 6,200, normal differential. Creatinine 1.6, BUN 29, potassium 5, glucose 264. CK 8.3. GFR 40 cc/min. EKG sinus rhythm, no acute changes. ASSESSMENT: 1. SEVERE DIZZINESS WITH PROFUSE SWEATING AND NAUSEA LIKELY VESTIBULAR DYSFUNCTION 2. HISTORY OF HYPERTENSION 3. DIABETES MELLITUS 4. DYSLIPIDEMIA 5. MORBID OBESITY 6. HYPERTENSION 7. HYPOTHYROIDISM 8. BENIGN PROSTATIC HYPERTROPHY 9. CHRONIC KIDNEY DISEASE NOTE: The patient is somewhat irritated because he has telemetry and doesn't understand why he has to have telemetry when he has come for dizziness. I explained to him about what telemetry does but he is extremely upset about it. PLAN: 1. Echocardiogram to evaluate LV function. 2. Serial EKGs, cardiac markers, monitor any acute myocardial event. So far the telemetry shows sinus rhythm, no ST-T wave changes. 3. Will do carotid scan. The patient's symptoms are definitely not indicative of any acute myocardial event or acute cerebrovascular event. The patient's WAITER/WAITRESS HEAD examination is entirely negative with normal speech, normal swallowing, normal gait, moving all extremities. The patient had normal CT scan of the head. The patient definitely has multiple risk factors for coronary artery disease and cerebrovascular accident. Counseling for diet done. CONDITION: Stable. MTDD
--- NOTE | 2017-01-14 14:43 | DS ---
PATIENT IDENTIFICATION: 76 year old male was discharged on 2016 after he had improved remarkable with his shortness of breath and wheezing. The patient was felt to have asthma and was instructed to resume his inhalers at home and his other medications and was prescribed Flovent 220 mcg per actuation to be taken twice a day. He also was given Albuterol HFA two puffs every six hours as needed. The patient did use the inhaler, however he believes that he must over used one. He did not get it straight. The inhaler, however, had instructions given also. The patient developed shortness of breath and was then brought to the emergency room by ambulance. The patient, during this episode, had shortness of breath with generalized weakness with dizziness, vertigo and diaphoresis. He claimed that he had to crawl on the floor to more from one place to the other. The patient was kept in the emergency room for several hours prior to admission. HOSPITAL COURSE: When I saw him the morning about 8 a.m. the patient was asleep and was not dyspneic, nor tachypneic, but he still had some expiratory wheezing. He did tell me about the diaphoresis and I could not see any entry with regards to the diaphoresis that he had experienced before coming to the emergency room. His CKMB was elevated with a normal Troponin times two. The patient's blood sugar was elevated and his previous A1C on the the previous admission was 6.3. The elevation maybe due to the Solu-Medrol that the patient had been given and continued at every 8 hours. The patient had expiratory wheezing, but not as loud. The patient on the following day, 01/10/2017, was feeling much better. LUNGS: The lungs has minimal expiratory wheeze and no rales. HEART: Audible and regular with good tones. Dr. Marcos, the local shoemaker custom , had examined the patient and felt that the CKMB elevation was noncardiac. This patient also had a CT scan of the head because of the vertigo and interpreted as no intracranial hemorrhage or evidence of large vessel infarct. Diffuse cerebral atrophy. Minimal paranasal sinusitis. The patient's CBC showed continued moderate anemia. Hemoglobin ranging from 11.2 to 12.6. He also had some thrombocytopenia and was 116 on admission. It did go up to 141, normal and down to 127 on 01/10/2017 and back to 140 on the day of discharge . Arterial blood gases on admission showed a PO2 of 43, PCO2 46.3, pH 7.363, oxygen saturation 91, FIO2 21%. The patient was continued on Synthroid 112 mcg, 81 mg Aspirin, Lorazepam 0.5 mg prn, sublingual B12 5,000 mcg, Demadex 20 mg daily, Flovent 220 mcg one puff twice a day, Hytrin 5 mg daily, Lovenox 40 mg subcutaneously daily, Potassium 99 mg p.o. daily, Zestril 10 mg twice a day, Antivert 25 mg three times a day. MiraLAX was continued at 17 grams daily and was given Valium 2 mg every [address] Marcos. The Solu-Medrol was discontinued and replaced with Prednisone 10 mg three times a day since yesterday. The patient, today, 01/11/2017 is alert and sitting in the chair without any oxygen. His color is good, not dyspneic, nor tachypneic. He told me that he was ready to go home and had been ready to go home several hours before I came in for the rounds. His temperature had been normal throughout this hospital stay. Blood pressure at 10 a.m. this morning was 151/67, temperature 98, pulse 63, respiratory rate 20, oxygen saturation 97 at room air. LUNGS: Has coarse breath sounds at the bases with some expiratory wheeze, very minimal. HEART: Audible and regular with good tones. LEGS: No tenderness in the calf muscles. ABDOMEN: No tenderness in the abdomen. I had advised the patient to continue to lose weight and dedicate and effort to do so. He is 5'8" and 317 pounds. PLAN: At discharge the patient was instructed: 1. See me this coming week at the office. 2. Take the Lorazepam twice a day regularly. 3. Resume the medications that was prescribed in the previous discharge of consisting of Flovent and Albuterol HFA. 4. Resume the other medications prior to this admission. 5. He was also prescribed Prednisone 10 mg tablet #20 to be taken three times a day for three days, twice a day for three days and daily for three days and then every other day until it is finished. FINAL DIAGNOSES: 1. ASTHMA WITH ACUTE EXACERBATION 2. POST ANXIETY 3. HYPERTENSION 4. DIABETES MELLITUS TYPE II 5. HYPOTHYROIDISM, REPLACED 6. MARKEDLY ELEVATED BMI 48.2 7. HISTORY OF COPD 8. HISTORY OF CHRONIC TOBACCO USE AND ABUSE, STOPPED 9. CHRONIC USE OF TOBACCO CHEWING. The patient was advised of the possibility of malignancy in the oral cavity secondary to the tobacco chewing. 10. HISTORY OF THROMBOCYTOPENIA 11. HISTORY OF SMOLDERING MYELOMA 12. CHRONIC LUMBAR PAIN 13. PERIPHERAL ARTERIAL DISEASE, ABSENT POSTERIOR TIBIAL PULSES 14. CHRONIC KIDNEY DISEASE STAGE III PROGNOSIS: Guarded. MTDD
--- NOTE | 2017-01-14 14:52 | PN ---
DATE OF VISIT: 01/09/17 ADMISSION NOTE 76 year old male who was released from the hospital because of an acute asthmatic exacerbation. He was discharged without any wheezing and was feeling good. This patient was given a prescription of Flovent, which he had used in the hospital and Albuterol HFA. The patient was on DuoNeb per nebulizer in the hospital. The patient claimed to have had lightheadedness to dizziness and weakness and that he has to crawl. He also had nausea, plus diaphoresis. The patient was noted to have wheezing according to the ER MD. The patient's diaphoresis was not noted in the emergency room intake. Because of the dizziness and marked weakness, as well as crawling in the floor to get to some place and diaphoresis with nausea that he is admitted to the hospital. He still has some expiratory wheezing. He is alert and very hard of hearing. Marked obesity. The patient had smoldering myeloma. This patient will have a cardiac workup during this admission. He also would have a consultation with Dr. Marcos. INESSA
--- NOTE | 2017-01-15 08:44 | PN ---
DATE OF VISIT: 01/10/17 The patient, today, is alert in no distress and no cyanosis. LUNGS: Clear to auscultation, but diminished. No wheezing both anteriorly and posteriorly. HEART: Normal sinus rhythm. VITAL SIGNS: At 14:00, today, 01/10/17, showed a temperature of 97.1, pulse 88 , blood pressure 174/60, respiratory rate 20, oxygen saturation 96 at room air. The patient was telling me it was useless for him to sit down while in the hospital. He wanted to know what is happening and I told that I do think that he had an exacerbation of his asthmatic attack. Medication that he had taken was the same medication that he was using while he was in the hospital. I did tell him that he does not have any bronchitis based upon the physical findings, as well as the previous CT of the chest. I do believe that it is just the asthma that is exacerbated. I also added to him that he needed to lose weight. He told me that he has lost some weight previously. He told me that he could not lose weight if he is sitting in the hospital or sitting at home. I told him that he has to move as much as he can tolerate. He may have some problems with moving as much as he can because of the weight. His problems now are mostly lung and that one of the enzymes were high, so I had asked the heart doctor, Dr. Marcos to look at him. Labs today showed moderate anemia at 11.5 gram hemoglobin, 34.3 hematocrit. Platelet count 127,000 and it was 141,000 yesterday. His platelet count had been fluctuating. Eosinophils on admission was 10.4 and is now 0.1. I would discontinue the Solu-Medrol IV and replace with oral Prednisone in preparation for him to go home. He will probably be continued on these on a tapering dose until I see him a week from the time of his future discharge. The nebulizer also was discontinued. He is now placed more of less on his medications that he would be using at home. If this patient does not have any exacerbation of his asthma, he will be discharged on his medications. INESSA
--- NOTE | 2017-01-29 11:54 | CONS ---
DATE OF SERVICE: 01/11/17 CONSULT FOLLOWUP SUBJECTIVE: The patient is a 76 year old white male hospitalized with dizziness, vertigo with perfuse sweating. The patient's condition has improved and he is feeling a lot better. He is up and about. REVIEW OF SYSTEMS: CONSTITUTIONAL: No night sweats. No fatigue, malaise, lethargy. No fever or chills. HEENT: Eyes: No visual changes. No eye pain. No eye discharge. ENT: No runny nose. No epistaxis. No sinus pain. No sore throat. No odynophagia. No ear pain. No congestion. RESPIRATORY: No cough, no congestion. No hemoptysis. CARDIOVASCULAR: No angina symptoms. No CHF symptoms. No atypical chest pain for CAD. No palpitations. No shortness of breath. GASTROINTESTINAL: No abdominal pain. No nausea or vomiting. No diarrhea or constipation. No hematemesis. No hematochezia. GENITOURINARY: No urgency. No frequency. No dysuria. No hematuria. No obstructive symptoms. No discharge. No pain. No significant abnormal bleeding. MUSCULOSKELETAL: No musculoskeletal pain. No joint swelling. No arthritis. NEUROLOGICAL: No headache. No neck pain. No syncope. No seizures. No dizziness. PSYCHIATRIC: Not anxious. No depression. No suicidal thoughts. No homicidal thoughts. SKIN: No rash. No lesions. No wounds. ENDOCRINE: No unexplained weight loss. No weight gain. HEMATOLOGIC/LYMPHATIC: No anemia. No purpura. No petechiae. No prolonged or excessive bleeding. No palpable lymph nodes. PHYSICAL EXAMINATION: GENERAL: The patient is oriented to time, place and person. VITAL SIGNS: Temperature 98, pulse 63, respiratory 21, blood pressure 150/60 and pulse ox 97%. HEENT: Head normocephalic, atraumatic. Eyes: Extraocular muscles are intact. Pupils are equal, round and reactive to light and accommodation. Ears: No lesions. Nose appeared normal. Throat: No exudate or erythema. NECK: Supple. No JVD, no carotid bruit. No lymphadenopathy or thyromegaly. LUNGS: Decreased breath sounds but Clear to auscultation. Percussion note normal. Chest symmetrical. HEART: S1, S2, no S3. No murmurs. No cyanosis or clubbing. No ascites. Pulses: Dorsalis pedis and posterior tibial pulses +1 to +2 both sides. ABDOMEN: Soft. Nontender. Bowel sounds active. No CVA tenderness. No mass felt. EXTREMITIES: No edema. Full range of motion of all extremities, equal. NEUROLOGIC: No focal deficit. Cranial nerves II through XII are grossly intact. No headache, no double vision or headache. SKIN: Not dry. Intact. Turgor - normal. LYMPHATIC: No palpable lymph nodes/no lymphedema. MUSCULOSKELETAL: Normal joints with no swelling. Muscle tone is normal. ASSESSMENT: 1. Positive CK-MB likely non-cardiac. RECOMMENDATIONS: 1. Patient's EKG sinus rhythm and unchanged. 2. Cardiac Markers negative. 3. Telemetry sinus rhythm,No ST-T wave change. 4. The patient is up and about with no symptoms. 5. Echocardiogram with normal LV contractility with borderline LVH. 6. The patient has multiple risk factors for coronary artery disease; he is asymptomatic for coronary insufficiency. 7. Advised to go through stress echo and the patient declined. 8. Explained about coronary artery disease and risk factors and the symptoms of it. 9. The patient's chronic kidney disease is stable, also explained about it. No non-steroidal anti-inflammatory. 10.A1c goal 6-7. 11.Discussed non-HDl goal 100. Case discussed with attending. CONDITION: Stable. MTDD
--- NOTE | 2017-01-29 11:55 | CONS ---
01/09/17: Level 5 01/10/17: Intermediate 01/11/17: Intermediate. MTDD
--- NOTE | 2017-01-29 12:55 | CONS ---
DATE OF SERVICE: 01/10/17 CONSULT FOLLOWUP SUBJECTIVE: The patient is a 76 ear old white male hospitalized with dizziness. The patient' s dizziness was typical of his vestibular dysfunction with sweaty and nausea feeling. The patient doesn't have that anymore. The patient is up and about. REVIEW OF SYSTEMS: CONSTITUTIONAL: No night sweats. No fatigue, malaise, lethargy. No fever or chills. HEENT: Eyes: No visual changes. No eye pain. No eye discharge. ENT: No runny nose. No epistaxis. No sinus pain. No sore throat. No odynophagia. No ear pain. No congestion. RESPIRATORY: No cough, no congestion. No hemoptysis. CARDIOVASCULAR: No angina symptoms. No CHF symptoms. No atypical chest pain for CAD. No palpitations. No shortness of breath. No PND. No orthopnea. GASTROINTESTINAL: No abdominal pain. No nausea or vomiting. No diarrhea or constipation. No hematemesis. No hematochezia. GENITOURINARY: No urgency. No frequency. No dysuria. No hematuria. No obstructive symptoms. No discharge. No pain. No significant abnormal bleeding. MUSCULOSKELETAL: No musculoskeletal pain. No joint swelling. No arthritis. NEUROLOGICAL: No headache. No neck pain. No syncope. No seizures. No dizziness. PSYCHIATRIC: Not anxious. No depression. No suicidal thoughts. No homicidal thoughts. SKIN: No rash. No lesions. No wounds. ENDOCRINE: No unexplained weight loss. No weight gain. HEMATOLOGIC/LYMPHATIC: No anemia. No purpura. No petechiae. No prolonged or excessive bleeding. No palpable lymph nodes. PHYSICAL EXAMINATION: GENERAL: The patient is oriented to time, place and person VITAL SIGNS: Temperature 96.5, pulse 70, respiratory rate 14, blood pressure 100 /39 and pulse ox 93%. HEENT: Head normocephalic, atraumatic. Eyes: Extraocular muscles are intact. Pupils are equal, round and reactive to light and accommodation. Ears: No lesions. Nose appeared normal. Throat: No exudate or erythema. NECK: Supple. No JVD, no carotid bruit. No lymphadenopathy or thyromegaly. LUNGS: Decreased breath sounds but clear to auscultation. Percussion note normal. Chest symmetrical. HEART: S1, S2, no S3. No murmurs. No cyanosis or clubbing. No ascites. Pulses: Dorsalis pedis and posterior tibial pulses +1 to +2 both sides. ABDOMEN: Soft. Nontender. Bowel sounds active. No CVA tenderness. No mass felt. EXTREMITIES: No edema. Full range of motion of all extremities, equal. NEUROLOGIC: No focal deficit. Cranial nerves II through XII are grossly intact. No headache, no double vision or headache. SKIN: Not dry. Intact. Turgor - normal. LYMPHATIC: No palpable lymph nodes/no lymphedema. MUSCULOSKELETAL: Normal joints with no swelling. Muscle tone is normal. LABS: Hgb 12.6, hct 38, WBC 6,200 normal differential, creatinine 1.6, BUN 29, glucose 264. ASSESSMENT: 1. Vestibular dysfunction with dizziness 2. Positive MB which is borderline etiology unknown doesn't look like cardiac 3. Borderline CK-MB positive; the patient doesn't have any symptoms of coronary insufficiency RECOMMENDATIONS: 1. The patient's EKG are sinus rhythm, no acute changes 2. Cardiac markers negative. 3. The patient's echo showed normal LV contractility, LVH and normal valves 4. The patient has multiple risk factor for coronary artery disease 5. Advise stress echo or Dobutamine stress echo and patient declined at present time. Somewhat suborn he said that reason that he came in was dizziness and it has nothing to do with her heart. Explained to him about his blood test but he doesn 't seem to be interested. Also explained to him about coronary artery disease and the Risk factors and he has multiple risk factors so possibility of coronary artery disease exists. The extent of it could be ruled out with stress test which he has declined. CONDITION: Stable. MTDD
== END 2017-01-11 18:15 | disposition home or self-care (01) | DRG 202 ==
LOC: ED 23:01 → MEDSURG A 01-09 08:53
PROVIDERS: ADMIT General Practice; ATTEND General Practice
DX: J45.21 Mild intermittent asthma with (acute) exacerbation (principal); J44.1 Chronic obstructive pulmonary disease with (acute) exacerbation; J45.20 Mild intermittent asthma, uncomplicated; R06.02 Shortness of breath; E11.22 Type 2 diabetes mellitus with diabetic chronic kidney disease; I12.9 Hypertensive chronic kidney disease with stage 1 through stage 4 chronic kidney disease, or unspecified chronic kidney disease; N18.3 Chronic kidney disease, stage 3 (moderate); R60.0 Localized edema; R42 Dizziness and giddiness; R61 Generalized hyperhidrosis; R53.1 Weakness; F41.8 Other specified anxiety disorders; I10 Essential (primary) hypertension; E11.9 Type 2 diabetes mellitus without complications; E03.9 Hypothyroidism, unspecified; G89.4 Chronic pain syndrome; M54.5 Low back pain; I73.9 Peripheral vascular disease, unspecified; Z68.42 Body mass index [BMI] 45.0-49.9, adult; F17.220 Nicotine dependence, chewing tobacco, uncomplicated; E66.01 Morbid (severe) obesity due to excess calories; Z86.2 Personal history of diseases of the blood and blood-forming organs and certain disorders involving the immune mechanism; Z85.79 Personal history of other malignant neoplasms of lymphoid, hematopoietic and related tissues; Z79.899 Other long term (current) drug therapy
CPT/HCPCS: 36415; 80048; 80053; 81001; 82550; 82553; 82803; 84484; 85025; 87040; 87081; 93005; 93010; 94640; 96374; 99223; 99233; 99239; 99284

== ENCOUNTER 2017-01-29 11:39 | Outpatient (CLI) | payer OTHER ==
[2017-01-29 13:21] LABS: BASOPHILS % (AUTO) 0.6 % (0.0-3.0); EOSINOPHILS # (AUTO) 0.3 K/ul (0.0-0.7); EOSINOPHILS % (AUTO) 3.9 % (0.0-7.0); HEMATOCRIT 34.3 % (42.0-52.0); HEMOGLOBIN 11.4 g/dl (14.0-18.0); IMMATURE GRANULOCYTE % (AUTO) 0.3 % (0.0-5.0); LYMPHOCYTES # (AUTO) 1.3 K/uL (0.60-3.4); LYMPHOCYTES % (AUTO) 20.6 (10.0-50.0); MEAN CORPUSCULAR HEMOGLOBIN 31.8 pg (27.0-31.0); MEAN CORPUSCULAR HGB CONC 33.2 (31.8-35.4); MEAN CORPUSCULAR VOLUME 95.8 fl (80.0-94.0); MONOCYTES # (AUTO) 0.4 K/uL (0.4-2.0); MONOCYTES % (AUTO) 6.6 (0-10); NEUTROPHILS # (AUTO) 4.4 K/ul (2.0-6.9); PLATELET COUNT 87 10^3/uL (140-440); RED BLOOD COUNT 3.58 10^6/ul (4.70-6.10)
[2017-01-29 13:35] LABS: BILIRUBIN,URINE Negative (NEGATIVE); KETONES,URINE Negative (NEGATIVE); LEUKOCYTE ESTERASE ,URINE Negative (NEGATIVE); NITRITE,URINE Negative (NEGATIVE); PH,URINE 5.5 (5-9); PROTEIN,URINE Negative (NEGATIVE); URINE, BLOOD Negative (NEGATIVE)
[2017-01-29 13:47] LABS: ALBUMIN 3.7 g/dL (3.4-5.0); ALBUMIN/GLOBULIN RATIO 1.28; ANION GAP 16.5; BILIRUBIN,TOTAL 0.45 mg/dL (0.00-1.20); BUN/CREATININE RATIO 18.32; CALCIUM 9.5 mg/dL (8.2-10.2); CHOL/HDL RATIO 5.3 (4.5-6.4); CREATININE 1.31 mg/dL (0.60-1.10); POTASSIUM 4.5 mmol/L (3.5-5.1); TOTAL PROTEIN 6.6 g/dL (5.8-8.1)
[2017-01-29 14:07] LABS: ADD URINE MICROSCOPIC NO
== END 2017-01-29 11:40 | disposition home or self-care (01) ==
LOC: LAB 11:39
PROVIDERS: ATTEND General Practice
DX: E11.8 Type 2 diabetes mellitus with unspecified complications (principal); E11.40 Type 2 diabetes mellitus with diabetic neuropathy, unspecified; I10 Essential (primary) hypertension; C90.00 Multiple myeloma not having achieved remission; E78.1 Pure hyperglyceridemia; M54.5 Low back pain; R60.0 Localized edema; Z79.899 Other long term (current) drug therapy
CPT/HCPCS: 36415; 80053; 80061; 81001; 83036; 85025

== ENCOUNTER 2017-04-17 14:38 | Inpatient (IN) ==
[2017-04-17 14:42] VITALS: BMI 47.1
--- NOTE | 2017-04-17 14:49 | ED.PDOC ---
General ED Provider: Dr. EARLENE HERRERA JR Chief Complaint: Shortness of Air Stated Complaint: shortness of air for six to seven days, cough white phlegm chest tightness with shortness of breath [End]99.1 83 28 94 169/54 10 Time Seen by Physician: 14:48 Mode of Arrival: Ambulance Information Source: Patient, EMT Exam Limitations: No limitations [facility] and Triage Documentation Reviewed and Agree: No Review of Systems - Review Of Systems Constitutional: Reports: Chills (last night). Denies: Fever (no thermometer) Eyes: Reports: No symptoms Ears, Nose, Mouth, Throat: Reports: No symptoms Respiratory: Reports: Cough, Short of air (worse last night, but did get cold and slept covered in bed(usually sits up to sleep)) Cardiac: Reports: Chest pain (with dyspnea), Edema (chrionic) GI: Reports: No symptoms : Reports: No symptoms Musculoskeletal: Reports: No symptoms Skin: Reports: No symptoms (except edema) Neurological: Reports: No symptoms Endocrine: Reports: No symptoms Hematologic/Lymphatic: Reports: No symptoms All Other Systems: Other Past Medical History - Past Medical History Endocrine: Reports: DM 2, Hypothyroid Cardiovascular: Reports: Hypertension Respiratory: Reports: COPD Hematological: Reports: None Gastrointestinal: Reports: None Genitourinary: Reports: None Neuro/Psych: Reports: None Musculoskeletal: Reports: None Cancer: Reports: Other 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 - Surgical History General Surgical History: Reports: Appendectomy, Cholecystectomy, Tonsillectomy , Orthopedic ( LEFT BIG TOE AMPUTATED), Back Surgery - Family History Family History: Reports: None - Social History Smoking Status: Former smoker, Dips snuff Hx Substance Use: No Alcohol Screening: None Physical Exam - Physical Exam Appearance: Well-appearing, Obese Ill-appearing: Mild Pain Distress: Mild Eyes: RUTH ANN, EOMI, Conjunctiva clear ENT: Ears normal, Nose normal, Oropharynx normal Neck: Supple Respiratory: Breath sounds diminished, Wheezes Cardiovascular: RRR, Pulses normal, No rub, No murmur GI/: Soft, Nontender, No masses, Bowel sounds normal, No Organomegaly Musculoskeletal: Normal strength, ROM intact, No edema, No calf tenderness Skin: Warm, Dry, Normal color Neurological: Sensation intact, Motor intact, Reflexes intact, Cranial nerves intact, Alert, Oriented Psychiatric: Affect appropriate, Mood appropriate Interpretation - EKG Interpretation Time of EKG #1: 15:21 Rate: Normal Rhythm: Sinus Ectopy: None ST Segment: Normal (septa QRS widening) EKG Comparison: No significant changes (1may 2016 voltage has decreased less frequent premature beats no other sig change) Critical Care Note - Critical Care Note Total Time (mins): 0 Course - Course Hematology/Chemistry: 04/17/17 15:05 04/17/17 15:05 Orders, Labs, Meds: Lab Review 04/17/17 04/17/17 14:53 15:05 WBC 6.43 RBC 3.60 L Hgb 11.8 L Hct 34.9 L MCV 96.9 H MCH 32.8 H MCHC 33.8 RDW Coeff of Torri 13.6 Plt Count 114 L Immature Gran % (Auto) 0.3 Neut % (Auto) 62.3 Lymph % (Auto) 15.2 Dougherty % (Auto) 5.4 Eos % (Auto) 16.0 H Baso % (Auto) 0.8 Immature Gran # (Auto) 0.0 Neut # 4.0 Lymph # 1.0 Dougherty # 0.4 Eos # 1.0 H Baso # 0.1 D-Dimer (Manual) 547.08 Puncture Site Rb O2 Saturation 92.0 L ABG pH 7.346 L ABG pCO2 48.5 H ABG pO2 68.0 L ABG HCO3 26.5 H ABG Total CO2 28 ABG Base Excess 1 Shilo Test + FiO2 % 21.0 Sodium 143 Potassium 4.4 Chloride 104 Carbon Dioxide 27 Anion Gap 16.4 BUN 20 H Creatinine 1.48 H Estimated GFR (MDRD) 46.00 BUN/Creatinine Ratio 13.51 Glucose 158 H Lactic Acid 16.1 Calcium 10.1 Total Bilirubin 0.27 AST 16 ALT 27 Alkaline Phosphatase 74 Total Creatine Kinase 181 CK-MB (CK-2) 2.8 CK-MB (CK-2) % 1.10774 Troponin I 0.0130 B-Natriuretic Peptide 25 Total Protein 7.2 Albumin 4.0 Globulin 3.2 Albumin/Globulin Ratio 1.25 Procalcitonin < 0.05 Orders Category Date Time Status ABG DRAW REQUEST Stat CARDIO 04/17/17 14:53 Completed EKG-(ED ONLY) Stat CARDIO 04/17/17 14:53 Completed NEBULIZER TREATMENT Stat CARDIO 04/17/17 14:54 Completed NPO REMINDER: IMAGING ONCE CARE 04/17/17 17:26 Active ABG Stat LAB 04/17/17 14:53 Completed B-TYPE NATRIURETIC PEPTIDE Stat LAB 04/17/17 15:05 Completed BLOOD CULTURE Stat LAB 04/17/17 15:05 Received CBC W/ AUTO DIFF Stat LAB 04/17/17 15:05 Completed COMPREHENSIVE METABOLIC PANEL Stat LAB 04/17/17 15:05 Completed CREATINE KINASE Stat LAB 04/17/17 15:05 Completed D-DIMER Stat LAB 04/17/17 15:05 Completed LACTIC ACID Stat LAB 04/17/17 15:05 Completed PROCALCITONIN Stat LAB 04/17/17 15:05 Completed TROPONIN I Stat LAB 04/17/17 15:05 Completed Ipratropium/Albuterol Neb [Duoneb] MEDS 04/17/17 14:54 Discontinued 1 vial NEB ONCE STA CHEST, 1V AP ONLY Stat RADS 04/17/17 14:[address] CHEST PE PROTOCOL Stat RADS 04/17/17 17:26 Taken Medications Discontinued Medications Generic Name Dose Route Start Last Admin Trade Name Freq PRN Reason Stop Dose Admin Albuterol/Ipratropium 1 vial 04/17/17 14:54 04/17/17 15:17 Duoneb NEB 04/17/17 14:55 1 vial ONCE STA Administration Vital Signs: Temp Pulse Resp BP Pulse Ox 04/17/17 14:39 99.1 F 83 28 H 169/54 H 94 L Departure - Departure Time of Disposition: 19:30 Disposition: ADMITTED INPATIENT Discharge Problem: COPD with acute exacerbation Instructions: COPD (Chronic Obstructive Pulmonary Disease) (ED) Condition: Fair Pt referred to PMD for follow-up: Yes Allergies/Adverse Reactions: Allergies gabapentin Adverse Reaction (Verified 04/17/17 14:49) Swelling STATES, "MAKES HIM SWELL AND HOLD WATER" Home Medications: Ambulatory Orders Glipizide [Glucotrol] 10 mg PO BID 05/24/13 Levothyroxine Sodium [Synthroid] 112 mcg PO QDAC 05/24/13 Polyethylene Glycol 3350 [Clearlax] 119 gm PO BEDTIME 05/24/13 Acetaminophen [Tylenol] 1,000 mg PO BID 09/21/14 Aspirin [Aspir 81] 81 mg PO DAILY 06/07/15 Torsemide 20 mg PO DAILY 06/07/15 Fluticasone Propionate 220 Mcg [Flovent Hfa 220 Mcg] 1 puff IH BID #1 puff 01/08 Albuterol Sulfate [Proair Hfa] 2 puff IH Q6H PRN #1 puff 01/11/17 Cetirizine HCl 10 mg PO DAILY tab-cap 01/15/17 Lorazepam 0.5 mg PO DAILY 04/17/17
[2017-04-17] MEDS ORDERED: DUONEB NEB STA (14:54)
[2017-04-17 15:17] LABS: BASOPHILS # (AUTO) 0.1 K/uL (0-0.2); BASOPHILS % (AUTO) 0.8 % (0.0-3.0); HEMATOCRIT 34.9 % (42.0-52.0); HEMOGLOBIN 11.8 g/dl (14.0-18.0); IMMATURE GRANULOCYTE % (AUTO) 0.3 % (0.0-5.0); LYMPHOCYTES % (AUTO) 15.2 (10.0-50.0); MEAN CORPUSCULAR HEMOGLOBIN 32.8 pg (27.0-31.0); MEAN CORPUSCULAR HGB CONC 33.8 (31.8-35.4); MEAN CORPUSCULAR VOLUME 96.9 fl (80.0-94.0); MONOCYTES # (AUTO) 0.4 K/uL (0.4-2.0); MONOCYTES % (AUTO) 5.4 (0-10); NEUTROPHILS % (AUTO) 62.3; PLATELET COUNT 114 10^3/uL (140-440); WHITE BLOOD COUNT 6.43 K/ul (4.2-10.2)
--- NOTE | 2017-04-17 15:51 | DI ---
EXAMINATION: AP chest radiograph. HISTORY: Chest pain COMPARISON: 01/06/2017 FINDINGS: Patient body habitus and portable technique exaggerate the lung markings. No focal consolidation, pl eural effusion or pneumothorax is identified. The cardiomediastinal silhouette is within normal limits. IMPRESSION: No acute cardiopulmonary findings.
[2017-04-17 15:52] LABS: ALBUMIN/GLOBULIN RATIO 1.25; ANION GAP 16.4; BILIRUBIN,TOTAL 0.27 mg/dL (0.00-1.20); BUN/CREATININE RATIO 13.51; CALCIUM 10.1 mg/dL (8.2-10.2); CREATININE 1.48 mg/dL (0.60-1.10); POTASSIUM 4.4 mmol/L (3.5-5.1); TOTAL PROTEIN 7.2 g/dL (5.8-8.1); TROPONIN I 0.013 ng/ml (0.0000-0.4000)
[2017-04-17 16:04] LABS: CREATINE KINASE MB 2.8 ng/ml (0.0-3.6)
--- NOTE | 2017-04-17 18:38 | ED.PDOC ---
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
[2017-04-17 18:59] LABS: ABG BASE EXCESS 1 (-2.0-2.0); ABG HCO3 26.5 (22.0-26.0); ABG PCO2 48.5 mmHg (35-45); ABG PH 7.346 (7.35-7.45); ABG TCO2 28 (22.0-28.0)
[2017-04-17] MEDS ORDERED: PROAIR HFA IH PRN (19:35)
--- NOTE | 2017-04-17 19:39 | CT ---
EXAM: CTA of the chest with IV contrast HISTORY: Short of air, positive D-dimer COMPARISON: 01/06/2017 TECHNIQUE: CTA of the chest with IV contrast. 3-D reformats were obtained. FINDINGS: No main or lobar pulmonary emboli are identified. There is nondiagnostic evaluation of several segm ental pulmonary arteries due to patient motion. The heart is borderline enlarged. Atherosclerotic calcifications are present including the coronary arteries. No mediastinal or hilar lymphadenopathy is seen. There is mild right middle lobe atelectasis and/or consolidation. The left upper lobe calcified gran uloma is present. No pneumothorax or pleural effusion is seen. Peribronchial thickening is present. The gallbladder has been removed. There are moderate degenerative changes of the thoracic spine. A 9 mm right hepatic lobe hypodensity seen which is too small to characterize. IMPRESSION: No main or lobar pulmonary emboli. Nondiagnostic evaluation of several segmental pulmonary arteries due to patient motion. Peribronchial thickening suggesting bronchitis/bronchiolitis. Mild right middle lobe atelectasis and/or consolidation. Borderline cardiomegaly. Atherosclerosis including the coronary arteries.
[2017-04-17] MEDS ORDERED: ROCEPHIN 1 GM in SODIUM CHLORIDE 50 ML IV STA (19:43)
[2017-04-17] MEDS ORDERED: ZITHROMAX 500 MG in SODIUM CHLORIDE 250 ML IV STA (19:43)
[2017-04-17] MEDS ORDERED: ROCEPHIN ONE (19:50)
[2017-04-17] MEDS ORDERED: NON-FORMULARY MEDICATION (Glipizide [Glucotrol] 10 MG) PO SCH ×22 (21:00)
[2017-04-17] MEDS ORDERED: POLYETHYLENE GLYCOL 119 GM PO SCH (21:00)
[2017-04-17] MEDS: SOLU-CORTEF 250 MG IVP SCH (21:22)
[2017-04-17] MEDS: ZESTRIL PO SCH (21:57)
[2017-04-17] MEDS: FLOVENT HFA 220 MCG IH SCH (21:57)
[2017-04-17] MEDS: DUONEB NEB SCH (23:09)
[2017-04-18] MEDS: SOLU-CORTEF 250 MG IVP SCH ×5 (01:13→23:15)
[2017-04-18 02:02] LABS: BASOPHILS # (AUTO) 0.1 K/uL (0-0.2); BASOPHILS % (AUTO) 0.7 % (0.0-3.0); EOSINOPHILS # (AUTO) 0.6 K/ul (0.0-0.7); EOSINOPHILS % (AUTO) 8.3 % (0.0-7.0); HEMATOCRIT 33.3 % (42.0-52.0); HEMOGLOBIN 11.2 g/dl (14.0-18.0); IMMATURE GRANULOCYTE % (AUTO) 0.3 % (0.0-5.0); LYMPHOCYTES # (AUTO) 0.8 K/uL (0.60-3.4); LYMPHOCYTES % (AUTO) 10.7 (10.0-50.0); MEAN CORPUSCULAR HEMOGLOBIN 32.4 pg (27.0-31.0); MEAN CORPUSCULAR HGB CONC 33.6 (31.8-35.4); MEAN CORPUSCULAR VOLUME 96.2 fl (80.0-94.0); MONOCYTES # (AUTO) 0.2 K/uL (0.4-2.0); MONOCYTES % (AUTO) 3.3 (0-10); NEUTROPHILS # (AUTO) 5.4 K/ul (2.0-6.9); NEUTROPHILS % (AUTO) 76.7; PLATELET COUNT 108 10^3/uL (140-440); RED BLOOD COUNT 3.46 10^6/ul (4.70-6.10); WHITE BLOOD COUNT 6.98 K/ul (4.2-10.2)
[2017-04-18 02:21] LABS: ALBUMIN 3.9 g/dL (3.4-5.0); ALBUMIN/GLOBULIN RATIO 1.39; ANION GAP 16.6; BILIRUBIN,TOTAL 0.2 mg/dL (0.00-1.20); BUN/CREATININE RATIO 13.37; CALCIUM 9.5 mg/dL (8.2-10.2); CREATININE 1.57 mg/dL (0.60-1.10); POTASSIUM 4.6 mmol/L (3.5-5.1); TOTAL PROTEIN 6.7 g/dL (5.8-8.1)
[2017-04-18 02:37] LABS: CREATINE KINASE 157 U/L
[2017-04-18 02:54] LABS: CREATINE KINASE MB 2.9 ng/ml (0.0-3.6)
[2017-04-18] MEDS: DUONEB NEB SCH ×4 (05:06→23:26)
[2017-04-18] MEDS: LASIX IVP SCH (05:55)
[2017-04-18] MEDS ORDERED: DUONEB NEB SCH (06:00)
[2017-04-18] MEDS: HUMULIN R SUBCUT PRN ×4 (06:16→21:08)
[2017-04-18] MEDS: FLOVENT HFA 220 MCG IH SCH ×2 (08:14→21:09)
[2017-04-18] MEDS: ZESTRIL PO SCH ×2 (08:14→21:07)
[2017-04-18] MEDS: ZYRTEC PO SCH (08:15)
[2017-04-18] MEDS: SYNTHROID PO SCH (08:15)
[2017-04-18] MEDS: HYTRIN PO SCH (08:15)
[2017-04-18] MEDS: DEMADEX PO SCH (08:16)
[2017-04-18] MEDS: ASPIRIN EC PO SCH (08:16)
[2017-04-18] MEDS: ATIVAN PO SCH (08:16)
[2017-04-18 10:19] LABS: CREATINE KINASE 159 U/L
[2017-04-18] MEDS: TYLENOL PO PRN ×2 (12:24→21:16)
[2017-04-18] MEDS: SYMBICORT 160-4.5 MCG INHALER IH SCH ×2 (15:42→21:09)
[2017-04-18] MEDS: ROCEPHIN 1 GM in SODIUM CHLORIDE 50 ML IV SCH (20:24)
[2017-04-18] MEDS: MIRALAX PO SCH (21:08)
[2017-04-18] MEDS: ZITHROMAX 500 MG in SODIUM CHLORIDE 250 ML IV SCH (21:09)
[2017-04-19 04:47] LABS: BASOPHILS % (AUTO) 0.1 % (0.0-3.0); EOSINOPHILS % (AUTO) 0.3 % (0.0-7.0); HEMATOCRIT 31.6 % (42.0-52.0); HEMOGLOBIN 10.7 g/dl (14.0-18.0); IMMATURE GRANULOCYTE % (AUTO) 0.6 % (0.0-5.0); LYMPHOCYTES # (AUTO) 0.6 K/uL (0.60-3.4); LYMPHOCYTES % (AUTO) 8.3 (10.0-50.0); MEAN CORPUSCULAR HEMOGLOBIN 32.3 pg (27.0-31.0); MEAN CORPUSCULAR HGB CONC 33.9 (31.8-35.4); MEAN CORPUSCULAR VOLUME 95.5 fl (80.0-94.0); MONOCYTES # (AUTO) 0.2 K/uL (0.4-2.0); MONOCYTES % (AUTO) 3.2 (0-10); NEUTROPHILS # (AUTO) 6.1 K/ul (2.0-6.9); NEUTROPHILS % (AUTO) 87.5; PLATELET COUNT 118 10^3/uL (140-440); RED BLOOD COUNT 3.31 10^6/ul (4.70-6.10); WHITE BLOOD COUNT 6.96 K/ul (4.2-10.2)
[2017-04-19] MEDS: DUONEB NEB SCH ×3 (04:59→17:12)
[2017-04-19 05:09] LABS: ALBUMIN 3.6 g/dL (3.4-5.0); ALBUMIN/GLOBULIN RATIO 1.29; ANION GAP 18.3; BILIRUBIN,TOTAL 0.19 mg/dL (0.00-1.20); BUN/CREATININE RATIO 12.5; CALCIUM 9.6 mg/dL (8.2-10.2); CREATININE 1.52 mg/dL (0.60-1.10); POTASSIUM 4.3 mmol/L (3.5-5.1); TOTAL PROTEIN 6.4 g/dL (5.8-8.1)
[2017-04-19] MEDS: SOLU-CORTEF 250 MG IVP SCH ×3 (05:42→18:01)
[2017-04-19] MEDS: SYNTHROID PO SCH (05:43)
[2017-04-19] MEDS: LASIX IVP SCH (05:43)
[2017-04-19] MEDS: HUMULIN R SUBCUT PRN ×4 (05:53→20:55)
[2017-04-19] MEDS: SYMBICORT 160-4.5 MCG INHALER IH SCH ×2 (08:11→20:45)
[2017-04-19] MEDS: HYTRIN PO SCH (08:11)
[2017-04-19] MEDS: ATIVAN PO SCH (08:11)
[2017-04-19] MEDS: ZESTRIL PO SCH ×2 (08:11→20:45)
[2017-04-19] MEDS: FLOVENT HFA 220 MCG IH SCH ×2 (08:11→20:45)
[2017-04-19] MEDS: ASPIRIN EC PO SCH (08:12)
[2017-04-19] MEDS: ZYRTEC PO SCH (08:12)
[2017-04-19] MEDS: DEMADEX PO SCH (08:12)
[2017-04-19] MEDS: LOVENOX SUBCUT SCH (18:27)
[2017-04-19] MEDS: ROCEPHIN 1 GM in SODIUM CHLORIDE 50 ML IV SCH (20:45)
[2017-04-19] MEDS: MIRALAX PO SCH (20:46)
[2017-04-19] MEDS: TYLENOL PO PRN (20:55)
[2017-04-19] MEDS: ZITHROMAX 500 MG in SODIUM CHLORIDE 250 ML IV SCH (21:35)
[2017-04-20 04:45] LABS: BASOPHILS % (AUTO) 0.1 % (0.0-3.0); EOSINOPHILS # (AUTO) 0.1 K/ul (0.0-0.7); EOSINOPHILS % (AUTO) 0.6 % (0.0-7.0); HEMATOCRIT 33.2 % (42.0-52.0); HEMOGLOBIN 11.2 g/dl (14.0-18.0); IMMATURE GRANULOCYTE % (AUTO) 0.6 % (0.0-5.0); LYMPHOCYTES % (AUTO) 12.6 (10.0-50.0); MEAN CORPUSCULAR HEMOGLOBIN 32.1 pg (27.0-31.0); MEAN CORPUSCULAR HGB CONC 33.7 (31.8-35.4); MEAN CORPUSCULAR VOLUME 95.1 fl (80.0-94.0); MONOCYTES # (AUTO) 0.4 K/uL (0.4-2.0); MONOCYTES % (AUTO) 5.3 (0-10); NEUTROPHILS # (AUTO) 6.3 K/ul (2.0-6.9); NEUTROPHILS % (AUTO) 80.8; PLATELET COUNT 130 10^3/uL (140-440); RED BLOOD COUNT 3.49 10^6/ul (4.70-6.10); WHITE BLOOD COUNT 7.76 K/ul (4.2-10.2)
[2017-04-20 05:07] LABS: ALBUMIN 3.9 g/dL (3.4-5.0); ALBUMIN/GLOBULIN RATIO 1.5; ANION GAP 17.9; BILIRUBIN,TOTAL 0.2 mg/dL (0.00-1.20); BUN/CREATININE RATIO 17.68; CALCIUM 9.9 mg/dL (8.2-10.2); CREATININE 1.47 mg/dL (0.60-1.10); POTASSIUM 3.9 mmol/L (3.5-5.1); TOTAL PROTEIN 6.5 g/dL (5.8-8.1)
[2017-04-20] MEDS: LASIX IVP SCH (06:09)
[2017-04-20] MEDS: SYNTHROID PO SCH (06:09)
[2017-04-20] MEDS ORDERED: PREDNISONE PO SCH ×2 (08:00)
[2017-04-20] MEDS: FLOVENT HFA 220 MCG IH SCH (09:36)
[2017-04-20] MEDS: ASPIRIN EC PO SCH (09:37)
[2017-04-20] MEDS: ATIVAN PO SCH (09:37)
[2017-04-20] MEDS: DEMADEX PO SCH (09:37)
[2017-04-20] MEDS: HYTRIN PO SCH (09:38)
[2017-04-20] MEDS: ZESTRIL PO SCH (09:39)
[2017-04-20] MEDS: ZYRTEC PO SCH (09:39)
[2017-04-20] MEDS: LOVENOX SUBCUT SCH (09:39)
[2017-04-20] MEDS: SYMBICORT 160-4.5 MCG INHALER IH SCH (09:42)
--- NOTE | 2017-04-20 11:03 | HP ---
CHIEF COMPLAINT: Shortness of breath SOURCE OF HISTORY: The patient as well as the Emergency room triage noted and MD. HISTORY OF PRESENT ILLNESS: The patient claimed to have experiencing shortness of breath in the last week and increasing prompting an emergency room visit today but ambulance. He noted that he was wheezing with cough with whitish sputum. He does experiencing some tightness in the chest with the shortness of breath. He was seen at the emergency room and evaluated. The patient on examination at the emergency room was noted to have inspiratory and expiratory wheeze. Chest x-ray showed no acute cardiopulmonary findings or processes. I was contracted by the emergency room physician Dr. Hurst for admission. I asked him in there was any obvious reason for the shortness of breath and he told me that he would give another dose of diuretic. I did ask him if he had done a D-dimer and if it is positive then proceed with chest CT with contrast to rule out pulmonary emboli. He did proceed to do that and the patient was noted to have no pulmonary embolization but a probably pneumonia in the right middle lobe. The patient also was noted to have peribronchial thickening suggesting bronchitis/ bronchiolitis. Medication given to the patient at the emergency room was DUO NEBS nebulization prior to admission. PAST PERSONAL HISTORY: The patient was admitted 01/09/17 because of asthma with acute exacerbation and also had history of chemical exposure. He was discharged the day before after being confined from 01/06/17 to 01/08/17 because of asthmatic exacerbation problem trigger by chemical exposure at home. Hypertension Diabetes mellitus, type2 Smoldering myeloma Hypothyroidism, replaced Dyslipidemia Chronic obstructive and maybe restrictive lung disease Chronic lumbar pain, secondary to failed back surgery syndrome Morbid obesity Cholecystectomy Tonsillectomy Amputation of the left big toe FAMILY HISTORY: Mother had COPD Father had Diabetes mellitus Sister probably uterine carcinoma Brother had malignancy SOCIAL HISTORY: The patient is and self sufficient. He stopped smoking some years ago. MEDICATIONS: Glipizide 10mg twice a day Levothyroxine 112mcg daily Clearlax 510gram powder 119gram PO bedtime Tylenol 500mg twice a day as needed Aspirin 81mg daily Torsemide 20mg PO daily Flovent Hfa 220mcg one puff twice a day Albuterol inhaler two puff Q 6 hours PRN Zyrtec 10mg daily Terazosin 5mg daily Lisinopril 10mg daily Lorazepam 0.5mg Po daily ALLERGIES: Gabapentin REVIEW OF SYSTEMS: CONSTITUTIONAL: The patient alert with no fever and no chills but some fatigue because of continued shortness of breath. CAGE/VAULT SUPERVISOR: No headaches, no seizure, no syncope and no ataxia. The patient has some abnormal gait because of the osteoarthritis and arthritis. VISUAL: Denies any blurred visions, double vision or transient loss of vision. AUDITORY: The patient is hard of hearing and denying any tinnitus and dizziness although he has episodes of dizziness in the past. No pain or drainage. RESPIRATORY: The patient has cough but nonproductive with shortness of breath with wheezing. The patient has history of asthma. CARDIOVASCULAR: The patient does have tightness with increasing shortness of breath. No diaphoresis. GASTROINTESTINAL: Appetite is somewhat decreased because of the shortness of breath but has no problems with nausea, vomiting or diarrhea. GENITOURINARY: The denies any pain in urination. He does have some frequency. MUSCULOSKELETAL: The patient has pain in both knees as well as the back. He did have lumbar surgery and continues to have pain. INTEGUMENT: Denies any pleuritis or rash. ENDOCRINE: Negative but the patient has Type 2 diabetes with markedly increased weight. HEMATOLOGIC: No history of prolonged bleeding. PSYCHIATRIC: Affect is OK. PHYSICAL EXAMINATION: GENERAL: The patient is a 76 year old male who stands 5 feet and 8 inches weighing 310 pounds, has dyspnea and tachypnea at rest. He is not cyanotic and does have two liters of nasal oxygen. VITAL SIGNS: Temperature 98.2, no blood pressure noted, respiratory rate 24, 2.5 liters of nasal oxygen HEAD: Unremarkable FACE: Symmetrical and equal with no facial weakness and on remarkable tenderness to palpation in the frontal maxillary sinus areas to palpation. EYES: Pupils equal/reactive to light. Conjunctivae pale. Sclerae not icteric. MOUTH: Unremarkable. THROAT: No inflammation, tumors or exudate. NECK: No masses. No bruit. No tenderness. No rigidity. Inspiratory and expiratory wheeze are heard over the neck. CHEST: Symmetrical and equal with good expansion. LUNGS: Breath sounds are heard with expiratory plus inspiratory wheezing distributed all over posteriorly as well as anteriorly. HEART: Audible and regular slightly distant. No murmurs. ABDOMEN: Markedly protuberant, soft with remarkable tenderness. No masses palpable and bowel sounds are active. Difficult to palpate the mass with the size of this abdomen. EXTERNAL GENITALIA: Not examined RECTAL: Not performed LOWER EXTREMITIES: Edematous 2+pitting edema. Posterior tibials are absent. No serous drainage in the legs or ankles. UPPER EXTREMITIES: Symmetrical and equal. ASSESSMENT: 1. Asthma with acute exacerbation 2. History of chronic obstructive pulmonary disease maybe restrictive 3. Type 2 Diabetes Mellitus 4. Markedly elevated BMI, 47.1 5. Bilaterally ankle and leg edema probably secondary to venous insufficiency 6. Peripheral arterial disease, absent posterior tibial pulses 7. Hypothyroidism, replace 8. Prostatic hypertrophy, on medication 9. Hypertension PROGNOSIS: Guarded MTDD
[2017-04-20 12:24] VITALS: BP 119/66; TEMP 98
--- NOTE | 2017-04-20 13:02 | PN ---
DATE OF VISIT: 04/18/2017 76 year old male was admitted because of increasing shortness of breath and was found to have wheezing scattered all over both anterior and posterior chest. The patient only received DuoNeb nebulizer in the emergency room. At the time of my examination, the patient was given 250 mg of Solu-Cortef IV and to be repeated every 6 hours. The patient is placed on a sliding scale of Humalog on the formula. Glipizide was discontinued. The patient, today, is feeling much better. VITAL SIGNS: Today at 9:57 a.m. showed a temperature of 97.6, pulse entry is wrong. Blood pressure 147/66, oxygen saturation entry wrong. That may be 98.9 or 89. It was entered as 989 at 2 1/2 liters of nasal oxygen. His appetite is good and he ate 100% of his meals. LUNGS: The lungs now has a better air exchange and the wheezing is just confined expiratory in the right lower base. He also feels better and he feels like he can go home tomorrow. This patient is receiving Ceftriaxone 1 gram IV daily and Azithromycin 500 mg daily. The Azithromycin will be given only for three weeks. He is also on Flovent and this might be changed to Pulmicort. This patient only had a rescue inhaler at home and this patient will be given Symbicort 160/4.5 now in the hospital one puff twice a day. CONDITION: Markedly improved. MTDD
--- NOTE | 2017-04-20 13:08 | PN ---
DATE OF VISIT: 04/19/17 The patient is feeling better and no wheezing. He does not have any shortness of breath. I told him that I did not hear any wheezing in his lungs as I heard yesterday at the right lower base. I also advised him that I will stop the oxygen and see what his oxygen saturation will be before I would discharge him home. His Solu-Cortef is going to be discontinued and will start on 20 mg of Prednisone tomorrow. He will be taking it twice a day in a decreasing dose. His DuoNeb nebulization will also be discontinued. He is taking Symbicort and he has ProAir as a rescue inhaler. He also has Flovent 220 mcg inhalation twice a day. This might be changed to Pulmicort. VITAL SIGNS: Today at 5:31 p.m. showed a temperature of 98, pulse 64, blood pressure 143/58, respiratory rate 20, oxygen saturation 98 at 2 liters. Again, the oxygen is discontinued at about 6:30 p.m. [facility]
[2017-04-20] MEDS ORDERED: SOLU-CORTEF 250 MG IVP STA (13:17)
[2017-04-20] MEDS: HUMULIN R SUBCUT PRN (13:43)
--- NOTE | 2017-04-21 11:10 | DS ---
DATE OF ADMISSION: 04/17/17 DATE OF DISCHARGE: 04/20/17 PATIENT IDENTIFICATION: The patient is a 76 year old male was admitted to the hospital by the emergency room because of increasing dyspnea since about a week prior to presentation. The patient in the emergency room was found to have wheezing all over. The patient was given a DUO NEB nebulizer in the emergency room with no other medication. The emergency room physician did not tell me about the findings except that he was short of breath and he was not very much better. I asked him to get a D-dimer and if the D-Dimer is elevated to proceed with a CTA lungs. The D-dimer indeed was elevated and the CTA was done showing no pulmonary emboli. The patient had some peribronchial thickening suggesting bronchiolitis or bronchitis. Middle lobes atelectasis or consolidation. The patient while in the hospital was given Ceftriaxone 1 gram intervenously daily and Azithromycin 500mg intervenously daily. The DUO NEB was given every 6 hours by nebulization. Glipizide was discontinued and the patient was given sliding scale using Humulin R before meals with coverage three times a day and HS without any coverage. He was continued on Fluticasone 220mcg one puff twice a day and the rest of the medications were continued. The patient was also given Lovenox 40mg SUBCUT daily. The patient was given 250mg of Solu-Cortef every three to six hours intervenously. The patient on the following day 04/18/17 was feeling much better and only had the residual expiratory wheeze of the right lower lobe. His appetite is good and consumed 100% of the meals. CBC showed persistent anemia moderate with normal WBC and elevated MCH and MCV. Plt count was down to 108,000 and it did climb back near normal to 130,000 on the day of discharge. Eosinophils were initially elevated at 16 and returned to normal 2.6 at discharge. Atrial blood gasses at room showed oxygen saturation at 92%, pH 7.346, pCO2 48.5, pO2 68, bicarb 26.5, total CO2 28. Electrolytes normal, BUN slightly elevated as well as serum creatinine. GFR estimated fluctuated between 46 to 43. Blood sugar fasting fluctuated between 133 to 241. Troponin and CK plus MB are normal. BNP 25, procalcitonin less than 0.05. Lactic acid 16.1, normal. The patient on 04/19/17 was feeling much better in the even and the lungs are now clear to auscultation with anteriorly and posteriorly. The Solu- Cortef was discontinued in the evening and replaced with Prednisone 20mg three times a day beginning in the morning of 04/20/17. The patient at the time of discharge about 1:00 in the after is alert, ambulatory without any dyspnea or tachypnea. He consumed all his meals. Vital signs at 10:00 in the morning showed a temperature of 98, pulse 68, blood pressure 119/66, respiratory rate 22 and oxygen saturation 94% at room air. CHEST: good expansion LUNGS: Breath sounds are heard in both sides with mild expiratory wheezing on both lung becerra. HEART: Audible and regular with good tones. The patient denied any chest pain and no abdominal pain and no pain in both legs. He wants to go and I told him that he will discharged today and I should see him in about a week. He is given 125mg of Solu-Cortef before discharge and prescribed Prednisone 10mg tablet #40 three tablets three times a day for two days then two tablets by mouth twice a day for another two days then take one tablet twice a day for two days then one daily until I see him a week from today. He was further advised that if he has recurrence of the problem that he should see me at the office. This patient had received Zithromax and most likely even Rocephin. He received the Rocephin on 04/17, 04/18 and 04/19 and . At discharge the patient was advised to discontinue Combivent and was given Symbicort 160/4.4mcg one inhalation twice a day. This medication had been initiated while he was in the hospital. He is also given the Prednisone prescription. He should resume his medications including the Glipizide except the Combivent. FINAL DIAGNOSES: 1. Asthma with acute exacerbation 2. COPD 3. Right upper posterior lobe infiltrate probably pneumonitis, improved 4. Diabetes mellitus, type 2 5. Markedly elevated BMI 6. Peripheral arterial disease, posterior tibial pulses 7. Hypothyroidism, replaced 8. Hypertension 9. Prostatic hypertrophy, on medication 10.Lateral moderate edema, secondary to dependency plus probably venous insufficiency, legs 11.Osteoarthritis, knees, operated. 12.This patient needs to reduce weight and begin exercising. PROGNOSIS: Guarded MTDD
== END 2017-04-20 14:55 | disposition home or self-care (01) | DRG 202 ==
LOC: ED 14:38 → MEDSURG B 20:02
PROVIDERS: ADMIT General Practice; ATTEND General Practice
DX: J45.901 Unspecified asthma with (acute) exacerbation (principal); J18.9 Pneumonia, unspecified organism; J44.1 Chronic obstructive pulmonary disease with (acute) exacerbation; I87.1 Compression of vein; R06.02 Shortness of breath; I10 Essential (primary) hypertension; R79.1 Abnormal coagulation profile; D64.9 Anemia, unspecified; E11.9 Type 2 diabetes mellitus without complications; R63.8 Other symptoms and signs concerning food and fluid intake; I73.9 Peripheral vascular disease, unspecified; E03.9 Hypothyroidism, unspecified; N40.0 Benign prostatic hyperplasia without lower urinary tract symptoms; M17.0 Bilateral primary osteoarthritis of knee; F17.220 Nicotine dependence, chewing tobacco, uncomplicated; Z79.899 Other long term (current) drug therapy
CPT/HCPCS: 36415; 80053; 82550; 82553; 82803; 82962; 83036; 83605; 83880; 84145; 84484; 85025; 85379; 87040; 93005; 93010; 94640; 96365; 99284

== ENCOUNTER 2017-06-23 13:52 | Outpatient (CLI) | payer OTHER ==
[2017-06-23 14:27] LABS: BASOPHILS % (AUTO) 0.6 % (0.0-3.0); EOSINOPHILS # (AUTO) 0.3 K/ul (0.0-0.7); EOSINOPHILS % (AUTO) 4.8 % (0.0-7.0); HEMATOCRIT 36.7 % (42.0-52.0); HEMOGLOBIN 12.2 g/dl (14.0-18.0); IMMATURE GRANULOCYTE % (AUTO) 0.2 % (0.0-5.0); LYMPHOCYTES # (AUTO) 1.4 K/uL (0.60-3.4); LYMPHOCYTES % (AUTO) 25.9 (10.0-50.0); MEAN CORPUSCULAR HEMOGLOBIN 32.3 pg (27.0-31.0); MEAN CORPUSCULAR HGB CONC 33.2 (31.8-35.4); MEAN CORPUSCULAR VOLUME 97.1 fl (80.0-94.0); MONOCYTES # (AUTO) 0.3 K/uL (0.4-2.0); MONOCYTES % (AUTO) 6.1 (0-10); NEUTROPHILS # (AUTO) 3.4 K/ul (2.0-6.9); NEUTROPHILS % (AUTO) 62.4; PLATELET COUNT 121 10^3/uL (140-440); RED BLOOD COUNT 3.78 10^6/ul (4.70-6.10); WHITE BLOOD COUNT 5.45 K/ul (4.2-10.2)
[2017-06-23 14:33] LABS: BILIRUBIN,URINE Negative (NEGATIVE); KETONES,URINE Negative (NEGATIVE); LEUKOCYTE ESTERASE ,URINE Negative (NEGATIVE); NITRITE,URINE Negative (NEGATIVE); PROTEIN,URINE Negative (NEGATIVE); URINE, BLOOD Negative (NEGATIVE)
[2017-06-23 14:34] LABS: ADD URINE MICROSCOPIC NO
[2017-06-23 14:46] LABS: ALBUMIN 3.9 g/dL (3.4-5.0); ALBUMIN/GLOBULIN RATIO 1.22; ANION GAP 14.2; BILIRUBIN,TOTAL 0.56 mg/dL (0.00-1.20); BUN/CREATININE RATIO 14.52; CALCIUM 10.1 mg/dL (8.2-10.2); CHOL/HDL RATIO 5.7 (4.5-6.4); CREATININE 1.17 mg/dL (0.60-1.10); POTASSIUM 4.2 mmol/L (3.5-5.1); TOTAL PROTEIN 7.1 g/dL (5.8-8.1)
== END 2017-06-23 13:53 | disposition home or self-care (01) ==
LOC: LAB 13:52
PROVIDERS: ATTEND General Practice
DX: E11.8 Type 2 diabetes mellitus with unspecified complications (principal); E78.1 Pure hyperglyceridemia; I10 Essential (primary) hypertension; Z79.899 Other long term (current) drug therapy
CPT/HCPCS: 36415; 80053; 80061; 81001; 83036; 85025

== ENCOUNTER 2017-09-06 08:17 | Inpatient (IN) ==
[2017-09-06] MEDS ORDERED: DUONEB NEB STA (08:23)
[2017-09-06 08:24] VITALS: BMI 45.6
[2017-09-06] MEDS ORDERED: SOLU-MEDROL 125 MG IVP STA (08:25)
--- NOTE | 2017-09-06 10:09 | CT ---
EXAM: CT angiogram of the chest with intravenous contrast 09/06/2017. Multi planar reformatted imag es obtained. Three-dimensional reconstructed images provided HISTORY: Shortness of a air COMPARISON: 04/17/2017 FINDINGS: There is no large central pulmonary embolus. There is severe respiratory motion artifact. This obscures the distal arterial branches. Small embolus distal to the segmental level cannot be excluded. The heart size is within normal limits. No pericardial effusion. No acute process of the thoracic a ricci. Linear infiltrates are present within the inferior aspect of the right middle lobe as well as the inf erior aspect of the right middle lobe. These findings may represent atelectasis and/or pneumonia. No pleural effusion. No pneumothorax. Limited views of the upper abdomen shows surgical changes of cholecystectomy. Hepatic steatosis. Spl enomegaly. The spleen measures 18.9 cm AP diameter. IMPRESSION: 1. No large central pulmonary embolus. Respiratory motion artifact obscures distal arterial branche s. Embolus distal to the segmental level could be obscured. 2. Right upper and right middle lobe infiltrate may represent atelectasis and/or pneumonia. 3. No pleural effusion or pneumothorax. 4. Hepatic steatosis post cholecystectomy. 5. Splenomegaly.
--- NOTE | 2017-09-06 10:23 | ED.PDOC ---
General ED Provider: Dr. MIKEL VANCE Chief Complaint: Shortness of Air Stated Complaint: short of air Time Seen by Physician: 08:20 (seen with eloina lee) Mode of Arrival: Walk-In Information Source: Patient Exam Limitations: No limitations Primary Care Provider: CLIVE GOTTI Referred to ED by: Other (no resp distress on arrival ) Nursing and Triage Documentation Reviewed and Agree: Yes Reviewed sepsis parameters & appropriate labs ordered?: Yes System Inflammatory Response Syndrome: Not Applicable Sepsis Protocol: For patient's 13 years and over: Temp is 96.8 and below OR 101 and greater Pulse >90 BPM Resp >20/minute Acutely Altered Mental Status Are patient's symptoms suggestive of a new infection, such as: -Pneumonia -Skin, Soft Tissue -Endocarditis -UTI -Bone, Joint Infection -Implantable Device -Acute Abdominal Infection -Wound Infection -Meningitis -Blood Stream Catheter Infection -Unknown Respiratory Complaint Exam - Respiratory Complaint/Exam Onset/Duration: 1 day Symptoms Are: Still present Timing: Constant Initial Severity: Mild Current Severity: Mild Location: Nose, Throat, Chest Character: Reports: Non-productive cough Alleviating: Reports: Bronchodilators, Spontaneous resolution Associated Signs and Symptoms: Reports: Chills, URI, Nasal congestion. Denies: Rapid breathing, Dyspnea, Fever, Chest pain, Pleuritic chest pain, Wheezing, Hemoptysis, Dizziness, Calf pain, Calf swelling, Edema, Hoarseness, Sinus discomfort, Vomiting, Sore throat, Weight loss, Decreased oral intake, Increased thirst, Increased appetite, Increased urination Related History: Reports: Similar episode History of Healthcare-Acquired Pneumonia: No Related Surgical History: Reports: None Pulmonary Embolism Risk Factors: Bedrest Cardiac Risk Factors: Reports: Diabetes, Hypertension Pseudomonas Risk Factors: Reports: Chronic Lung Disease Tuberculosis Risk Factors: Reports: None Status Asthmaticus Risk Factors: Reports: None Home Oxygen Use: No Recent Stress Test: No Recent Echo/LV Function: No Current Antibiotic Use: No Current Asthma Medication Use: No Respiratory Distress: None Inadequate Respiratory Effort: No Dysphagia Present: No Stridor Present: No JVD Present: No Retractions: Not Present Diminished Breath Sounds: Yes Prolonged Respiration: Expiratory phase Sinus Tenderness: None Grunting Respirations: No Kussmaul Respirations: No Differential Diagnoses: CHF, Pulmonary Edema, COPD Exacerbation, Pneumonia, Bronchitis, Lower Resp. Infection Review of Systems - Review Of Systems Constitutional: Reports: Malaise Eyes: Reports: No symptoms Ears, Nose, Mouth, Throat: Reports: No symptoms Respiratory: Reports: Cough, Short of air Cardiac: Reports: No symptoms GI: Reports: No symptoms : Reports: No symptoms Musculoskeletal: Reports: No symptoms Skin: Reports: No symptoms Neurological: Reports: No symptoms Endocrine: Reports: No symptoms Hematologic/Lymphatic: Reports: No symptoms All Other Systems: Reviewed and Negative Past Medical History - Past Medical History Endocrine: Reports: DM 2, Hypothyroid Cardiovascular: Reports: Hypertension Respiratory: Reports: COPD Hematological: Reports: None Gastrointestinal: Reports: None Genitourinary: Reports: None Neuro/Psych: Reports: None Musculoskeletal: Reports: None Cancer: Reports: Other 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 - Surgical History General Surgical History: Reports: Appendectomy, Cholecystectomy, Tonsillectomy , Orthopedic ( LEFT BIG TOE AMPUTATED), Back Surgery - Family History Family History: Reports: None - Social History Smoking Status: Former smoker, Dips snuff Hx Substance Use: No Alcohol Screening: None - Immunizations Tetanus Shot up to Date: No Physical Exam - Physical Exam Appearance: Well-appearing, No pain distress, Well-nourished Eyes: RUTH ANN, EOMI, Conjunctiva clear ENT: Ears normal, Nose normal, Oropharynx normal Respiratory: Airway patent, Breath sounds clear, Breath sounds equal, Respirations nonlabored Cardiovascular: RRR, Pulses normal, No rub, No murmur GI/: Soft, Nontender, No masses, Bowel sounds normal, No Organomegaly Musculoskeletal: Normal strength, ROM intact, No edema, No calf tenderness Skin: Warm, Dry, Normal color Neurological: Sensation intact, Motor intact, Reflexes intact, Cranial nerves intact, Alert, Oriented Psychiatric: Affect appropriate, Mood appropriate Interpretation - Radiology Interpretation Radiology Interpretation By: Radiologist Radiology Results: No acute changes (RUL/RML INFILT) Physician Notification - Case Discussed Physician Notified: EFREM Time of Notification: 10:27 Admit To: Inpatient Critical Care Note - Critical Care Note Total Time (mins): 0 Course - Course Hematology/Chemistry: 09/06/17 08:43 09/06/17 08:43 Orders, Labs, Meds: Lab Review 09/06/17 09/06/17 09/06/17 08:43 08:43 08:43 WBC 6.37 RBC 3.17 L Hgb 10.0 L Hct 30.3 L MCV 95.6 H MCH 31.5 H MCHC 33.0 RDW Coeff of Torri 13.2 Plt Count 146 Immature Gran % (Auto) 1.1 Neut % (Auto) 77.5 Lymph % (Auto) 13.8 Whitman % (Auto) 5.0 Eos % (Auto) 2.4 Baso % (Auto) 0.2 Immature Gran # (Auto) 0.1 Neut # 4.9 Lymph # 0.9 Whitman # 0.3 L Eos # 0.2 Baso # 0.0 Sodium 136 Potassium 4.1 Chloride 99 Carbon Dioxide 27 Anion Gap 14.1 BUN 14 Creatinine 1.25 H Estimated GFR (MDRD) 56.00 BUN/Creatinine Ratio 11.20 Glucose 205 H Lactic Acid Calcium 9.0 Total Bilirubin 0.4 AST 18 ALT 32 Alkaline Phosphatase 101 Total Creatine Kinase 74 Troponin I < 0.0100 B-Natriuretic Peptide 60 Total Protein 6.9 Albumin 3.3 L Globulin 3.6 Albumin/Globulin Ratio 0.92 Procalcitonin Influenza A (Rapid) Influenza B (Rapid) 09/06/17 09/06/17 09/06/17 08:43 08:43 08:43 WBC RBC Hgb Hct MCV MCH MCHC RDW Coeff of Torri Plt Count Immature Gran % (Auto) Neut % (Auto) Lymph % (Auto) Whitman % (Auto) Eos % (Auto) Baso % (Auto) Immature Gran # (Auto) Neut # Lymph # Whitman # Eos # Baso # Sodium Potassium Chloride Carbon Dioxide Anion Gap BUN Creatinine Estimated GFR (MDRD) BUN/Creatinine Ratio Glucose Lactic Acid 19.2 Calcium Total Bilirubin AST ALT Alkaline Phosphatase Total Creatine Kinase Troponin I B-Natriuretic Peptide Total Protein Albumin Globulin Albumin/Globulin Ratio Procalcitonin 0.16 Influenza A (Rapid) Negative Influenza B (Rapid) Negative Orders Category Date Time Status EKG-(ED ONLY) Stat CARDIO 09/06/17 08:22 Completed NEBULIZER TREATMENT Stat CARDIO 09/06/17 08:23 Completed NPO REMINDER: IMAGING ONCE CARE 09/06/17 08:23 Completed ED IV/MEDIPORT/POWERPORT .ONCE EMERGENCY 09/06/17 08:21 Active B-TYPE NATRIURETIC PEPTIDE Stat LAB 09/06/17 08:43 Completed BLOOD CULTURE (ED ONLY) Stat LAB 09/06/17 08:43 Received CBC W/ AUTO DIFF Stat LAB 09/06/17 08:43 Completed COMPREHENSIVE METABOLIC PANEL Stat LAB 09/06/17 08:43 Completed CREATINE KINASE Stat LAB 09/06/17 08:43 Completed LACTIC ACID Stat LAB 09/06/17 08:43 Completed PROCALCITONIN Stat LAB 09/06/17 08:43 Completed RAPID FLU A/B Stat LAB 09/06/17 08:43 Completed TROPONIN I Stat LAB 09/06/17 08:43 Completed 0.9 % Sodium Chloride [Saline Flush] MEDS 09/06/17 08:22 Active 1 syr IVF PRN PRN Ipratropium/Albuterol Neb [Duoneb] MEDS 09/06/17 08:23 Discontinued 1 vial NEB ONCE STA Methylprednisolone Sod Succ/Pf [Solu-Medrol 125 mg] MEDS 09/06/17 08:25 Discontinued [address]P ONCE [address] CHEST PE PROTOCOL Stat RADS 09/06/17 08:23 Completed Medications Generic Name Dose Route Start Last Admin Trade Name Freq PRN Reason Stop Dose Admin Sodium Chloride 1 syr 09/06/17 08:22 09/06/17 08:38 Saline Flush IVF 1 syr PRN PRN Administration To flush IV Discontinued Medications Generic Name Dose Route Start Last Admin Trade Name Freq PRN Reason Stop Dose Admin Albuterol/Ipratropium 1 vial 09/06/17 08:23 09/06/17 08:30 Duoneb NEB 09/06/17 08:24 1 vial ONCE STA Administration Methylprednisolone Sodium Succinate 125 mg 09/06/17 08:25 09/06/17 08:38 Solu-Medrol 125 Mg IVP 09/06/17 08:26 125 mg ONCE STA Administration Vital Signs: Temp Pulse Resp BP Pulse Ox 09/06/17 08:18 96.6 F L 105 H 22 139/58 L 95 Departure - Departure Time of Disposition: 10:27 Disposition: HOME SELF-CARE Discharge Problem: Pneumonia Qualifiers: Pneumonia type: due to unspecified organism Laterality: right Lung location: middle lobe of lung Qualified Code(s): J18.1 - Lobar pneumonia, unspecified organism Instructions: Pneumonitis (ED) Condition: Good Pt referred to PMD for follow-up: Yes Additional Instructions: Please call your Family Physician as soon as possible to schedule a follow-up appointment. Allergies/Adverse Reactions: Allergies gabapentin Adverse Reaction (Unverified 04/28/17 11:07) Swelling STATES, "MAKES HIM SWELL AND HOLD WATER" Home Medications: Ambulatory Orders Polyethylene Glycol 3350 [Clearlax] 119 gm PO BEDTIME 05/24/13 Acetaminophen [Tylenol] 1,000 mg PO BID 09/21/14 Aspirin [Aspir 81] 81 mg PO DAILY 06/07/15 Torsemide 20 mg PO DAILY 06/07/15 Cetirizine HCl 10 mg PO DAILY tab-cap 01/15/17 Albuterol Sulfate [Proair Hfa] 8.5 gm IH PRN PRN #1 ih 04/28/17 Disposition Discussed With: Patient
[2017-09-06] MEDS: SOLU-MEDROL 40 MG IVP SCH ×2 (10:36→21:04)
[2017-09-06] MEDS ORDERED: ROCEPHIN ONE (10:59)
[2017-09-06] MEDS: ROCEPHIN 1 GM in SODIUM CHLORIDE 50 ML IV SCH (11:03)
[2017-09-06] MEDS: SODIUM CHLORIDE 1,000 ML IV SCH (12:01)
[2017-09-06] MEDS: LEVAQUIN 500 MG in PREMIX 100 ML D5W 1 BAG IV SCH (12:40)
[2017-09-06] MEDS: DUONEB NEB SCH ×3 (13:30→23:57)
[2017-09-06] MEDS: HUMULIN R SUBCUT PRN ×2 (17:12→21:04)
[2017-09-06] MEDS ORDERED: NON-FORMULARY MEDICATION (Glipizide [Glucotrol] 10 MG) PO SCH (21:00)
[2017-09-06] MEDS: ZESTRIL PO SCH (21:04)
[2017-09-06] MEDS: GLUCOTROL PO SCH (21:04)
[2017-09-06] MEDS: TYLENOL PO SCH (21:05)
[2017-09-07] MEDS: SODIUM CHLORIDE 1,000 ML IV SCH ×3 (02:34→17:03)
[2017-09-07] MEDS: DUONEB NEB SCH ×4 (04:54→23:42)
[2017-09-07] MEDS: HUMULIN R SUBCUT PRN ×4 (06:25→20:27)
[2017-09-07] MEDS: SYNTHROID PO SCH (06:25)
[2017-09-07] MEDS: ASPIRIN EC PO SCH (08:05)
[2017-09-07] MEDS: SOLU-MEDROL 40 MG IVP SCH ×2 (08:34→20:25)
[2017-09-07] MEDS: GLUCOTROL PO SCH ×2 (09:34→20:19)
[2017-09-07] MEDS: DEMADEX PO SCH (09:35)
[2017-09-07] MEDS: HYTRIN PO SCH (09:35)
[2017-09-07] MEDS: ZESTRIL PO SCH ×2 (09:35→20:20)
[2017-09-07] MEDS: TYLENOL PO SCH ×2 (09:35→20:19)
[2017-09-07] MEDS: ROCEPHIN 1 GM in SODIUM CHLORIDE 50 ML IV SCH (09:35)
[2017-09-07] MEDS: LOVENOX SUBCUT SCH (09:41)
[2017-09-07] MEDS: LEVAQUIN 500 MG in PREMIX 100 ML D5W 1 BAG IV SCH (10:27)
[2017-09-08] MEDS: SODIUM CHLORIDE 1,000 ML IV SCH ×2 (05:10→20:01)
[2017-09-08] MEDS: SYNTHROID PO SCH (05:45)
[2017-09-08] MEDS: DUONEB NEB SCH ×4 (06:10→21:46)
[2017-09-08] MEDS: HUMULIN R SUBCUT PRN ×4 (06:34→20:39)
[2017-09-08] MEDS: TYLENOL PO SCH (08:01)
[2017-09-08] MEDS: DEMADEX PO SCH (08:02)
[2017-09-08] MEDS: ASPIRIN EC PO SCH (08:02)
[2017-09-08] MEDS: ZESTRIL PO SCH ×2 (08:02→20:39)
[2017-09-08] MEDS: LOVENOX SUBCUT SCH (08:03)
[2017-09-08] MEDS: GLUCOTROL PO SCH ×2 (08:03→20:39)
[2017-09-08] MEDS: HYTRIN PO SCH (08:03)
[2017-09-08] MEDS: ROCEPHIN 1 GM in SODIUM CHLORIDE 50 ML IV SCH (08:30)
[2017-09-08] MEDS: LEVAQUIN 500 MG in PREMIX 100 ML D5W 1 BAG IV SCH (09:37)
[2017-09-08] MEDS: SOLU-MEDROL 40 MG IVP SCH (11:24)
[2017-09-09] MEDS: DUONEB NEB SCH ×2 (05:15→11:10)
[2017-09-09] MEDS: SYNTHROID PO SCH (06:06)
[2017-09-09] MEDS: ZESTRIL PO SCH (08:49)
[2017-09-09] MEDS: ROCEPHIN 1 GM in SODIUM CHLORIDE 50 ML IV SCH (08:49)
[2017-09-09] MEDS: ASPIRIN EC PO SCH (08:49)
[2017-09-09] MEDS: HYTRIN PO SCH (08:49)
[2017-09-09] MEDS: GLUCOTROL PO SCH (08:49)
[2017-09-09] MEDS: LOVENOX SUBCUT SCH (08:50)
[2017-09-09] MEDS: DEMADEX PO SCH (08:50)
[2017-09-09] MEDS: LEVAQUIN 500 MG in PREMIX 100 ML D5W 1 BAG IV SCH (09:34)
[2017-09-09] MEDS: SODIUM CHLORIDE 1,000 ML IV SCH (09:34)
--- NOTE | 2017-09-09 11:37 | PN ---
DATE OF VISIT: 09/07/17 The patient claimed that he is feeling better and wants to be home , since he has an appointment for laser surgery to his eye. I told him that he probably can go home Thursday night and it depends on how he does. I told him that I would not promise, but it looks like that is probably feasible. VITAL SIGNS: At 6 o'clock 09/07/17 showed a temperature of 97.5. His previous temperatures were normal. Pulse rate 95, blood pressure 142/58, respiratory rate 20, oxygen saturation 92 at 2 liters. This patient sometimes doesn't use his oxygen. His appetite appears to be good and he consumed 100% of his meals. His blood sugar was elevated and it was down to 143. It was 300 on admission. LUNGS: About the same. HEART: Normal sinus rhythm. CONDITION: Improved, questionable. The patient, however, does not appear to be in any distress and he is sitting at the time of examination. INESSA
--- NOTE | 2017-09-09 11:50 | PN ---
DATE OF VISIT: 09/08/17 The patient is alert with no significant distress. VITAL SIGNS: At 10 a.m. was temperature 98.3, pulse 72, blood pressure 123/55, respiratory rate 16, oxygen saturation 98 at 2 liters. We will discontinue the oxygen and I will get a chest x-ray tomorrow in preparation for his discharge if his condition remains stable and improved. LUNGS: Breath sounds are diminished. Wheezing is less. Wheezing may be due to the asthma, which is triggered by the respiratory problems. CBC today showed a normal WBC, moderate anemia 9.5 grams hemoglobin, 29.8 hematocrit. Electrolytes normal. BUN elevated, E GFR down to 53. Sugar was 211 this morning. His albumin is below normal at 3.1. Blood cultures negative after two days. The patient is receiving Ceftriaxone 1 gram daily and Levofloxacin 500 mg daily. Methylprednisolone 40 mg every 12 hours IV. He is also receiving Lovenox 30 mg subcutaneously daily prophylactic for DVT and PE. Influenza A and B antibody titers quantitative is pending. The Methylprednisolone will be discontinued and see how he does without it. Tylenol 1,000 mg every 12 hours is discontinued to prevent any suppression of his fever, if there is. He is given a sliding scale using Humulin R. MTDD
--- NOTE | 2017-09-09 12:48 | DI ---
EXAM: CHEST FRONTAL AND LATERAL VIEWS HISTORY: Followup cough, concern for pneumonia. COMPARISON: 04/17/2017 FINDINGS: Heart size upper limit normal, stable. No acute infiltrates are seen. No vascular congest ion. There is no consolidation, visible pleural fluid or pneumothorax. Bones reveal no acute fractur e. IMPRESSION: No acute cardiopulmonary process. The mid right lung focus of consolidation seen on re cent CT is not identified at this time.
[2017-09-09 13:25] VITALS: BP 113/56; TEMP 97.9
[2017-09-09] MEDS ORDERED: DUONEB NEB SCH (14:00)
[2017-09-09] MEDS ORDERED: DECADRON 4 MG/ML SDV IM STA (16:37)
--- NOTE | 2017-09-10 13:58 | HP ---
CHIEF COMPLAINT: Shortness of breath. HISTORY OF PRESENT ILLNESS: The patient claimed to have noted increasing shortness of breath in the last three days prior to admission. The patient presented to the emergency room and had a chest CT showing right upper and middle lobe pneumonitis. The patient was advised admission by the emergency room physician. The patient was then admitted. The patient's BNP in the emergency room was normal at 60 and procalcitonin was 0.16, normal. Rapid A and B were negative. Blood sugar was elevated at 205. He was admitted with a diagnosis of (1)right upper and middle lobe pneumonitis, (2)Dyspnea secondary to #1. PAST PERSONAL HISTORY: The patient had cataracts removed, cholecystectomy, vasectomy, prostatic hypertrophy probably benign, diabetes mellitus since 2010, tonsillectomy, removal of a cyst in the back. FAMILY HISTORY: Mother had COPD, father had diabetes mellitus, sister has gynecological cancer, brother had malignancy. SOCIAL HISTORY: The patient is and resides alone and is self sufficient. He stopped smoking years ago, but still dips snuff. MEDICATIONS: Prior to this admission: Clearlax 119 grams p.o. at bedtime Tylenol 1000 mg p.o. twice a day for pain Aspirin 81 mg daily Torsemide 20 mg daily Zyrtec 10 mg daily ProAir Hfa one puff prn Glipizide 10 mg twice a day Symbicort 160/4.5 one puff twice a day Lisinopril 10 mg daily Terazosin 5 mg capsule daily Levothyroxine 112 mcg daily ALLERGIES: Gabapentin. REVIEW OF SYSTEMS: CONSTITUTIONAL: The patient denies any fever or chills. He claims to be somewhat fatigued from the shortness of breath. ESTIMATOR AND DRAFTER: No headaches, no seizure disturbances and no syncopal episodes. VISUAL: Denies any blurred vision, double vision or transient loss of vision. AUDITORY: His hearing is markedly decreased. He denies any tinnitus, pain or drainage. RESPIRATORY: The patient is short of breath and somewhat tachypneic. CARDIOVASCULAR: Denies any chest pain or chest tightness. GASTROINTESTINAL: Appetite appears to be good and no dysphagia. No abdominal pain. GENITOURINARY: Denies any pain or frequency or urination. MUSCULOSKELETAL: The patient has joint pains, mostly in his knees. ENDOCRINE: The patient has no polydipsia or polyuria, but is a type II diabetic with obesity. INTEGUMENT: Denies any rash or pruritus. HEMATOLOGIC: No history of prolonged bleeding or easy bruising. PSYCHIATRIC: Affect normal. PHYSICAL EXAMINATION: GENERAL: We have a 77 year old male admitted to the hospital because of right upper and middle lobe pneumonitis with dyspnea. VITAL SIGNS: Temperature 96.6, pulse 105, blood pressure 139/58, respiratory rate 22, oxygen saturation 95. Weight 300 lbs, 5'8". BMI 45.6. HEAD: Unremarkable. FACE: Symmetrical and equal with no facial weakness and no tenderness to palpation in the frontal or maxillary sinus areas. EYES: Pupils equal/reactive to light about 3 mm in size. Conjunctivae not pale. Sclerae not icteric. MOUTH: Unremarkable. THROAT: No inflammation, tumors or exudate. NECK: No masses. No bruit. No tenderness. No rigidity. Wheezing is noted in both sides of the neck. CHEST: Symmetrical and equal with good expansion. LUNGS: Breath sounds are heard in both sides, diminished. The patient has inspiratory and expiratory wheeze, more on the right side. A few rales on the right. HEART: Audible and regular with good tones. No murmurs. ABDOMEN: Markedly protuberant with no remarkable tenderness. No masses palpable. Bowel sounds are present and active. No bruit. Difficult to palpate any masses in this abdominal size. EXTERNAL GENITALIA: Not examined. RECTAL: Not performed. LOWER EXTREMITIES: Legs and ankles are edematous 2+. Posterior tibials are absent. UPPER EXTREMITIES: Symmetrical and equal. ASSESSMENT: 1. RIGHT UPPER AND MIDDLE LOBE PNEUMONITIS 2. DYSPNEA SECONDARY TO #1 3. CHRONIC OBSTRUCTIVE LUNG DISEASE 4. TYPE II DIABETES MELLITUS 5. MARKEDLY ELEVATED BMI 6. 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 HYPOTHYROIDISM REPLACED. 8. HISTORY OF BENIGN PROSTATIC HYPERTROPHY FOLLOWED BY UROLOGIST 9. HISTORY OF HYPERTENSION 10. BILATERAL VENOUS INSUFFICIENCY WITH BILATERAL LEG EDEMA 11. HISTORY OF ASTHMA 12. HISTORY OF MGUS FOLLOWED BY ADVERTISING COLUMNIST/ONCOLOGIST [facility]
--- NOTE | 2017-09-24 07:11 | HP ---
DATE OF SERVICE: 09/06/17 - (seen in Dr. Damon's absence) HISTORY OF PRESENT ILLNESS: This is a 77-year-old white male who was seen in the absence of Dr. Damon. The patient came into the hospital with cough and congestion. The patient has pneumonia. REVIEW OF SYSTEMS: CONSTITUTIONAL: No night sweats. No fatigue, malaise, lethargy. No fever or chills. HEENT: Eyes: No visual changes. No eye pain. No eye discharge. ENT: No runny nose. No epistaxis. No sinus pain. No sore throat. No odynophagia. No congestion. RESPIRATORY: Mild cough. No congestion. No hemoptysis. No shortness of breath. CARDIOVASCULAR: No angina symptoms. No CHF symptoms. No atypical chest pain for CAD. No palpitations. No orthopnea. GASTROINTESTINAL: No abdominal pain. No nausea or vomiting. No diarrhea or constipation. No hematemesis. No hematochezia. GENITOURINARY: No urgency. No frequency. No dysuria. No hematuria. No obstructive symptoms. No discharge. No pain. No significant abnormal bleeding. MUSCULOSKELETAL: No musculoskeletal pain; no joint swelling. NEUROLOGICAL: No headache. No neck pain. No syncope. No seizures. No dizziness. PSYCHIATRIC: Not anxious. No depression. No suicidal thoughts. No homicidal thoughts. SKIN: No rash. No lesions. No wounds. ENDOCRINE: No unexplained weight loss. No weight gain. HEMATOLOGIC/LYMPHATIC: No anemia. No purpura. No petechiae. No prolonged or excessive bleeding. No palpable lymph nodes. MEDICATIONS: Polyethylene Glycol Acetaminophen Aspirin 81 mg p.o. daily Torsemide 20 mg p.o. daily ProAir HFA one puff q.i.d. Glipizide 10 mg twice a day Symbicort 160-4.5 mcg one puff twice a day Levothyroxine 112 mcg p.o. daily Lisinopril 10 mg p.o. twice a day Terazosin 5 mg p.o. daily ALLERGIES: GABAPENTIN PAST MEDICAL HISTORY: History of COPD Morbid obesity with BMI of 45 Hypertension Hypothyroidism Diabetes mellitus Generalized osteoarthritis Prostatic hypertrophy PAST SURGICAL HISTORY: Appendectomy Cholecystectomy Tonsillectomy Big toe amputation Status post back surgery Of Note: The patient is going to have surgery in one of his eyes. He has been waiting for awhile. It is going to be done by Dr. Camarillo 7 days from now. PHYSICAL EXAMINATION: VITAL SIGNS: Temperature 98.9, pulse 85, respiratory rate 20, BP 139/58. Pulse ox 95%. HEENT: Head normocephalic, atraumatic. Eyes: Extraocular muscles are intact. Pupils are equal, round and reactive to light and accommodation. Ears: No lesions. Nose appeared normal. Throat: No exudate or erythema. NECK: Supple. No JVD, no carotid bruit. No lymphadenopathy or thyromegaly. LUNGS: Decreased breath sounds but clear to auscultation. Percussion note normal. Chest symmetrical. HEART: S1, S2, no S3. No murmurs. No cyanosis or clubbing. No ascites. Pulses: Dorsalis pedis and posterior tibial pulses +1 to +2 both sides. ABDOMEN: Soft. Nontender. Bowel sounds active. No CVA tenderness. No mass felt. EXTREMITIES: No edema. Full range of motion of all extremities, equal. NEUROLOGIC: No focal deficit. Cranial nerves II through XII are grossly intact. No headache, no double vision or headache. SKIN: Not dry. Intact. Turgor - normal. LYMPHATIC: No palpable lymph nodes/no lymphedema. MUSCULOSKELETAL: Normal joints with no swelling. Muscle tone is normal. LABS: Hemoglobin 10, hematocrit 30, WBC 6,300, normal differential. Creatinine 1.2, BUN 14, potassium 4.1, lactic acid 19.2, procalcitonin .16, all normal. Troponin normal. BNP 60 which is normal. Rapid A and Rapid B flu negative. EKG sinus rhythm, no acute changes. ASSESSMENT: 1. Acute bronchitis/pneumonitis/flu type of symptoms 2. Chronic lung disease 3. Diabetes mellitus 4. Hypothyroidism 5. Hypertension PLAN: 1. Give IV antibiotics, Rocephin, IV Levaquin 2. Methylprednisone 3. Covering with sliding scale with Accu-Checks 4. Continue Zestril, Demadex, Aspirin, Lovenox CONDITION: Stable TIME SPENT: More than 70 minutes. MTDD
--- NOTE | 2017-10-01 14:52 | DS ---
PATIENT IDENTIFICATION: 77 year old male had been experiencing increasing shortness of breath beginning three days prior to presentation to the emergency room. HOSPITAL COURSE: The patient was subsequently admitted with a diagnosis of pneumonitis based upon the CT scan of the chest without contrast involving the right upper and middle lobe. BNP is normal in the emergency room at 60. The patient's appetite has remained good. The patient had inspiratory and expiratory wheezing more on the right side. He also had a few rales of the right base. This patient also had asthma. The patient had been afebrile and on presentation his temperature was also normal at the emergency room. Respiratory rate was 22, BMI was markedly elevated at 45.6. The patient's labs on admission showed a normal WBC, moderate anemia 10 hgb, hct 30.3, BUN normal at 14, creatinine 1.25, EKGFR 56. Blood sugar was elevated at 205 on admission and remained elevated throughout his hospital stay. His fasting insulin is 41.5. Cardiac enzymes CK plus MB and troponin were normal. Influenza rapid A was negative and Influenza rapid B is negative. Influenza quantitative titers were requested and the A is 1:64 and B is 1:32. Convalescent serum will be requested three weeks from the time of his admission or three days before admission. The time his followup at the office will be about two and a half weeks and influenza A and B antibody titer will be requested at that time. Repeat CBC essentially showed normal WBC and unchanged hgb and hct. The EGFR had decreased slightly to 53 from 56. The BUN and increased from 14 to 24. The patient's temperature had remained normal throughout the hospital stay and his blood pressure has fluctuated to slightly above normal and normal. The patient during this hospitalization was given Methylprednisolone 40mg intervenous Q 12 hour and Levofloxacin 500mg intervenously daily. He also was given Lovenox 30mg SUBQ daily. DUO NEBS inhalation four times a day. The patient also was given Ceftriaxone 1gram intervenously daily. His Glipizide was continued and placed on insulin regular on sliding scale. The Tylenol was discontinued. This patient was feeling much better and wheezing had resolved as well as the rales. The patient on the day of discharge was alert, ambulatory without any shortness of breath. Chest x-ray done 09/09/17 just before discharge showed clearing of the right upper and middle lobe infiltrate. No wheezing was noted. The patient however was given Decadron 4mg prior to discharge because of the history of asthma. HEART: Normal sinus rhythm. This patient was advised to change is eating habits and walk as many times as possible even if they are short distances. He is continue to the Tylenol 1, 000mg twice a day for the joint pains, Albuterol inhaler rescue PRN, Aspirin 81mg daily, Symbicort 160/4.5 one inhalation twice a day, Zyrtec 10mg daily, Glipizide 10mg twice a day, Levothyroxine 112mcg daily, Lisinopril 10mg twice a day and Clearlax 119gram PO bedtime. The patient was prescribed Omnicef at discharge 300mg capsule twice a day for 5 days. Pulmicort flex inhaler 300mcg one inhalation twice a day rinse mouth after each inhalation. The patient is to see me at the office in one week and call for an appointment. Again emphasized that he needed to lose weight. He told me that he doesn't use his rescue inhaler except occasionally. I told him that a combination of Symbicort plus ProAir does increase the incident of sudden although occasional but increase the chances of dying suddenly. This happens in people with asthma. PROGNOSIS: Guarded. FINAL DIAGNOSES: 1. Right upper and middle lobe pneumonitis, resolved 2. Dyspnea secondary to #1 3. Asthma by history probably exacerbated 4. Type 2 diabetes mellitus 5. Markedly elevated BMI 45.6 6. Insulin resistant syndrome, elevated fasting insulin 7. History of hypothyroidism, replaced 8. History of benign prostatic hypertrophy followed by urologist 9. History of hypertension 10.History of venous insufficiency with bilateral leg edema 11.History of MGUS followed by settlement processor/oncologist [facility]
== END 2017-09-09 17:40 | disposition home or self-care (01) | DRG 194 ==
LOC: ED 08:17 → MEDSURG A 10:42
PROVIDERS: ADMIT General Practice; ATTEND General Practice
DX: J18.1 Lobar pneumonia, unspecified organism (principal); Z68.42 Body mass index [BMI] 45.0-49.9, adult; R06.02 Shortness of breath; E11.69 Type 2 diabetes mellitus with other specified complication; E66.9 Obesity, unspecified; J45.909 Unspecified asthma, uncomplicated; E03.9 Hypothyroidism, unspecified; N40.0 Benign prostatic hyperplasia without lower urinary tract symptoms; I10 Essential (primary) hypertension; I87.2 Venous insufficiency (chronic) (peripheral); D47.2 Monoclonal gammopathy; F17.220 Nicotine dependence, chewing tobacco, uncomplicated; Z79.899 Other long term (current) drug therapy
CPT/HCPCS: 36415; 80053; 82550; 82553; 82962; 83525; 83605; 83880; 84145; 84484; 85025; 86710; 87040; 87502; 93005; 93010; 94640; 96365; 96375; 99285

== ENCOUNTER 2017-09-22 12:54 | Outpatient (CLI) | payer OTHER | END 2017-09-22 12:55 | disposition home or self-care (01) | LOC: LAB 12:54 | PROVIDERS: ATTEND General Practice | DX: E11.8 Type 2 diabetes mellitus with unspecified complications (principal); I10 Essential (primary) hypertension; Z79.899 Other long term (current) drug therapy | CPT/HCPCS: 36415; 80069; 81001; 83036; 85025 ==

== ENCOUNTER 2017-11-24 15:41 | Outpatient (CLI) ==
--- NOTE | 2017-11-24 16:10 | DI ---
EXAM: LEFT KNEE. HISTORY: Left knee pain FINDINGS: Left knee four view. Articular cartilage width is normal. There is no fracture or joint effusion. Bone density and soft tissues are within normal limits. IMPRESSION: Within normal limits.
== END 2017-11-24 15:42 | disposition home or self-care (01) ==
LOC: RAD 15:41
PROVIDERS: ATTEND General Practice
DX: M25.562 Pain in left knee (principal); G89.29 Other chronic pain

== ENCOUNTER 2017-12-22 07:00 | Outpatient (CLI) ==
[2017-12-22 07:25] VITALS: BP 135/54; TEMP 96.5
[2017-12-22] MEDS ORDERED: BENADRYL IVP STA (07:28)
[2017-12-22] MEDS ORDERED: TYLENOL PO STA (07:28)
[2017-12-22] MEDS ORDERED: SOLU-CORTEF 100 MG IVP STA (07:30)
[2017-12-22] MEDS ORDERED: INFED IVP STA ×2 (07:32)
[2017-12-22] MEDS ORDERED: INFED 500 MG in SODIUM CHLORIDE 250 ML IV STA (07:35)
== END 2017-12-22 07:01 | disposition home or self-care (01) ==
LOC: OPMED 07:00
PROVIDERS: ATTEND Internal Medicine Hematology & Oncology
DX: D50.9 Iron deficiency anemia, unspecified (principal); K90.9 Intestinal malabsorption, unspecified; N18.3 Chronic kidney disease, stage 3 (moderate)
CPT/HCPCS: 96365; 96375

== ENCOUNTER 2018-01-22 09:34 | Outpatient (CLI) | END 2018-01-22 09:35 | disposition home or self-care (01) | LOC: FCC-LAB 09:34 | PROVIDERS: ATTEND General Practice | DX: E11.8 Type 2 diabetes mellitus with unspecified complications (principal); E11.40 Type 2 diabetes mellitus with diabetic neuropathy, unspecified; I10 Essential (primary) hypertension; E78.1 Pure hyperglyceridemia; C90.00 Multiple myeloma not having achieved remission; Z12.5 Encounter for screening for malignant neoplasm of prostate; Z79.899 Other long term (current) drug therapy | CPT/HCPCS: 36415; 80053; 80061; 81001; 83036; 84443; 85025; 87086; 87186 ==

== ENCOUNTER 2018-03-19 08:39 | Inpatient (IN) ==
[2018-03-19] MEDS ORDERED: SOLU-MEDROL 125 MG IVP STA (08:47)
[2018-03-19] MEDS ORDERED: DUONEB NEB STA (08:47)
[2018-03-19 08:48] VITALS: BMI 47.1
--- NOTE | 2018-03-19 11:07 | CT ---
EXAM: CTA of the chest. History: Short of breath Comparison: Chest radiograph 09/09/2017, chest CT 09/06/2017 Technique: Multiplanar CT images through the thorax were obtained following administration of IV con trast. MIP images and 3-D reconstructions were also acquired. Findings: Heart is mildly enlarged. No thoracic aortic aneurysm. Coronary artery calcifications. There is motion artifact through the ascending aorta but no aortic dissection is identified. No pulm onary arterial filling defects. No axillary lymphadenopathy. No pathologically enlarged mediastinal or hilar lymph nodes. There is interlobular septal thickening and bronchial wall thickening. Bilate ral ground-glass changes and nodular consolidation seen within the right middle lobe measuring 1.8 cm . Trace bilateral pleural effusions. Within the visualized upper abdomen, stable small hepatic cyst. The liver is enlarged fatty. Status post cholecystectomy. The spleen is only partially visualized but appears mildly enlarged. No acute osseous abnormalities. Degenerative changes of the thoracic spine with prominent anterior osteophyt es. Impression: 1. No pulmonary embolism. 2. Normal thoracic aorta. 3. Mild cardiomegaly with interstitial edema and trace bilateral pleural effusions. 4. Nodular consolidation within the right middle lobe probably represents a focal area of pneumonia. A follow-up chest CT is recommended in 6 months to document resolution and exclude any underlying n eoplastic etiology. 5. Coronary artery disease. 6. Enlarged fatty liver. 7. Mild splenomegaly
[2018-03-19] MEDS ORDERED: ROCEPHIN 1 GM in SODIUM CHLORIDE 50 ML IV STA (11:25)
--- NOTE | 2018-03-19 11:28 | ED.PDOC ---
General ED Provider: Dr. MIKEL VANCE Chief Complaint: Shortness of Air Stated Complaint: wheezing , short of air Time Seen by Physician: 08:45 (seen with nurse at all times ) Mode of Arrival: Wheelchair Information Source: Patient, Family Exam Limitations: No limitations [facility] and Triage Documentation Reviewed and Agree: Yes Does patient meet sepsis criteria?: No If yes, has appropriate treatment been initiated?: No System Inflammatory Response Syndrome: Not Applicable Sepsis Protocol: For patient's 13 years and over: Temp is 96.8 and below OR 101 and greater Pulse >90 BPM Resp >20/minute Acutely Altered Mental Status Are patient's symptoms suggestive of a new infection, such as: -Pneumonia -Skin, Soft Tissue -Endocarditis -UTI -Bone, Joint Infection -Implantable Device -Acute Abdominal Infection -Wound Infection -Meningitis -Blood Stream Catheter Infection -Unknown Respiratory Complaint Exam - Respiratory Complaint/Exam Onset/Duration: 1 day Symptoms Are: Still present Initial Severity: Mild Current Severity: Mild Location: Nose, Throat, Chest Character: Reports: Non-productive cough Aggravating: Reports: None Alleviating: Reports: Bronchodilators Associated Signs and Symptoms: Denies: Rapid breathing, Dyspnea, Fever, Chills, Chest pain, Pleuritic chest pain, Wheezing, Hemoptysis, Dizziness, Calf pain, Calf swelling, Edema, URI, Nasal congestion, Hoarseness, Sinus discomfort, Vomiting, Sore throat, Weight loss, Decreased oral intake, Increased thirst, Increased appetite, Increased urination Related History: Reports: Similar episode History of Healthcare-Acquired Pneumonia: No Related Surgical History: Reports: None Pulmonary Embolism Risk Factors: Bedrest Cardiac Risk Factors: Reports: Diabetes, Hypertension Tuberculosis Risk Factors: Reports: None Status Asthmaticus Risk Factors: Reports: None Home Oxygen Use: No Recent Stress Test: No Recent Echo/LV Function: No Respiratory Distress: None Inadequate Respiratory Effort: No Dysphagia Present: No Stridor Present: No JVD Present: No Accessory Muscle Use: No Retractions: Not Present Diminished Breath Sounds: No Sinus Tenderness: None Grunting Respirations: No Kussmaul Respirations: No Differential Diagnoses: COPD Exacerbation, Pneumonia, Pulmonary Embolism, Bronchitis, Lower Resp. Infection Quality Indicators For Pneumonia: Antibiotics in 6hr-admit, SpO2 assessed, Empiric Antibiotic Rx, Vital signs, Mental status assessed Non-Traumatic Chest Pain Syncope: EKG Performed Review of Systems - Review Of Systems Constitutional: Reports: Malaise Eyes: Reports: No symptoms Ears, Nose, Mouth, Throat: Reports: No symptoms Respiratory: Reports: Cough, Short of air, Wheezing Cardiac: Reports: No symptoms GI: Reports: No symptoms : Reports: No symptoms Musculoskeletal: Reports: No symptoms Skin: Reports: No symptoms Neurological: Reports: No symptoms Endocrine: Reports: No symptoms Hematologic/Lymphatic: Reports: No symptoms All Other Systems: Reviewed and Negative Past Medical History - Past Medical History Previously Healthy: Yes Endocrine: Reports: DM 2, Hypothyroid Cardiovascular: Reports: Hypertension Respiratory: Reports: COPD Hematological: Reports: None Gastrointestinal: Reports: None Genitourinary: Reports: None Neuro/Psych: Reports: None Musculoskeletal: Reports: None Cancer: Reports: Other 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 - Surgical History General Surgical History: Reports: Appendectomy, Cholecystectomy, Tonsillectomy , Orthopedic ( LEFT BIG TOE AMPUTATED), Back Surgery - Family History Family History: Reports: None - Social History Smoking Status: Dips snuff Hx Substance Use: No Alcohol Screening: None - Immunizations Tetanus Shot up to Date: Yes Physical Exam - Physical Exam Appearance: Well-appearing Ill-appearing: Mild Eyes: RUTH ANN, EOMI, Conjunctiva clear ENT: Ears normal, Nose normal, Oropharynx normal Respiratory: Breath sounds diminished, Wheezes Cardiovascular: RRR, Pulses normal, No rub, No murmur GI/: Soft, Nontender, No masses, Bowel sounds normal, No Organomegaly Musculoskeletal: Normal strength, ROM intact, No edema, No calf tenderness Skin: Warm, Dry, Normal color Neurological: Sensation intact, Motor intact, Reflexes intact, Cranial nerves intact, Alert, Oriented Psychiatric: Affect appropriate, Mood appropriate Interpretation - Radiology Interpretation Radiology Interpretation By: Radiologist Radiology Results: Positive (focal pneumonai) - Mechanical Integrity Engineer Rate: Normal Rhythm: Sinus Ectopy: None - EKG Interpretation Rate: Normal Rhythm: Sinus Ectopy: None [place]: NL ST Segment: Normal Re-Evaluation - Re-Evaluation Time of Re-Evaluation: 10:00 Status: Improved Vital Signs Stable: Yes Pain Level: 0 Appearance: NAD Lungs: Clear Skin: Warm and Dry Neuro: Alert and Oriented X3 - Re-Evaluation Time of Re-Evaluation: 11:31 Status: Improved Vital Signs Stable: Yes Pain Level: 0 Appearance: NAD Skin: Warm and Dry Neuro: Alert and Oriented X3 CV: RRR Physician Notification - Case Discussed Physician Notified: pmd Time of Notification: 12:00 Admit To: Inpatient Critical Care Note - Critical Care Note Total Time (mins): 0 Course - Course Hematology/Chemistry: 03/19/18 09:04 03/19/18 09:04 Orders, Labs, Meds: Lab Review 03/19/18 03/19/18 03/19/18 08:46 09:04 09:04 WBC 5.24 RBC 3.39 L Hgb 10.7 L Hct 33.3 L MCV 98.2 H MCH 31.6 H MCHC 32.1 RDW Coeff of Torri 14.2 Plt Count 90 L Immature Gran % (Auto) 0.4 Neut % (Auto) 65.4 Lymph % (Auto) 18.9 [place] % (Auto) 6.1 Eos % (Auto) 8.8 H Baso % (Auto) 0.4 Immature Gran # (Auto) 0.0 Neut # (Auto) 3.4 Lymph # (Auto) 1.0 [place] # (Auto) 0.3 L Eos # (Auto) 0.5 Baso # (Auto) 0.0 Puncture Site Rrad O2 Saturation 92.0 L ABG pH 7.388 ABG pCO2 46.3 H ABG pO2 65.0 L ABG HCO3 27.9 H ABG Total CO2 29 H ABG Base Excess 3 H Shilo Test + FiO2 % 21.0 Sodium 141 Potassium 4.3 Chloride 104 Carbon Dioxide 28 Anion Gap 13.3 BUN 16 Creatinine 1.34 H Estimated GFR (MDRD) 52.00 BUN/Creatinine Ratio 11.94 Glucose 166 H Calcium 9.2 Total Bilirubin 0.4 AST 20 ALT 37 Alkaline Phosphatase 79 Total Creatine Kinase 110 Troponin I < 0.0100 B-Natriuretic Peptide Total Protein 6.8 Albumin 3.7 Globulin 3.1 Albumin/Globulin Ratio 1.19 03/19/18 09:04 WBC RBC Hgb Hct MCV MCH MCHC RDW Coeff of Torri Plt Count Immature Gran % (Auto) Neut % (Auto) Lymph % (Auto) [place] % (Auto) Eos % (Auto) Baso % (Auto) Immature Gran # (Auto) Neut # (Auto) Lymph # (Auto) [place] # (Auto) Eos # (Auto) Baso # (Auto) Puncture Site O2 Saturation ABG pH ABG pCO2 ABG pO2 ABG HCO3 ABG Total CO2 ABG Base Excess Shilo Test FiO2 % Sodium Potassium Chloride Carbon Dioxide Anion Gap BUN Creatinine Estimated GFR (MDRD) BUN/Creatinine Ratio Glucose Calcium Total Bilirubin AST ALT Alkaline Phosphatase Total Creatine Kinase Troponin I B-Natriuretic Peptide 91 Total Protein Albumin Globulin Albumin/Globulin Ratio Orders Category Date Time Status ABG DRAW REQUEST Stat CARDIO 03/19/18 08:46 Completed EKG-(ED ONLY) Stat CARDIO 03/19/18 08:45 Completed NEBULIZER TREATMENT Stat CARDIO 03/19/18 08:47 Completed NEBULIZER TREATMENT Stat CARDIO 03/19/18 11:26 Ordered NPO REMINDER: IMAGING ONCE CARE 03/19/18 08:47 Active ED IV/MEDIPORT/POWERPORT .ONCE EMERGENCY 03/19/18 08:45 Active ABG Stat LAB 03/19/18 08:46 Completed BLOOD CULTURE (ED ONLY) Stat LAB 03/19/18 Ordered BNP [B-TYPE NATRIURETIC PEPTIDE] Stat LAB 03/19/18 09:04 Completed CBC W/ AUTO DIFF Stat LAB 03/19/18 09:04 Completed COMPREHENSIVE METABOLIC PANEL Stat LAB 03/19/18 09:04 Completed CREATINE KINASE Stat LAB 03/19/18 09:04 Completed TROPONIN I Stat LAB 03/19/18 09:04 Completed 0.9 % Sodium Chloride [Saline Flush] MEDS 03/19/18 08:45 Discontinued 1 syr IVF PRN PRN Ceftriaxone Sodium [Rocephin] 1 gm MEDS 03/19/18 11:25 Ordered 0.9 % Sodium Chloride [Sodium Chloride] 50 ml IV ONCE Ipratropium/Albuterol Neb [Duoneb] MEDS 03/19/18 08:47 Discontinued 1 vial NEB ONCE STA Ipratropium/Albuterol Neb [Duoneb] MEDS 03/19/18 12:00 Ordered 1 vial NEB RTQ6H Methylprednisolone Sod Succ/Pf [Solu-Medrol 125 mg] MEDS 03/19/18 08:47 Discontinued 125 [address] IVP ONCE [address]A CT CHEST PE PROTOCOL Stat RADS 03/19/18 08:46 Completed Medications Generic Name Dose Route Start Last Admin Trade Name Freq PRN Reason Stop Dose Admin Albuterol/Ipratropium 1 vial 03/19/18 12:00 Duoneb NEB RTQ6H MIN Ceftriaxone Sodium 1 gm/ 50 mls @ 75 mls/hr 03/19/18 11:25 Sodium Chloride IV 03/19/18 12:04 ONCE STA Discontinued Medications Generic Name Dose Route Start Last Admin Trade Name Jairo PRN Reason Stop Dose Admin Albuterol/Ipratropium 1 vial 03/19/18 08:47 03/19/18 09:05 Duoneb NEB 03/19/18 08:48 1 vial ONCE STA Administration Methylprednisolone Sodium Succinate 125 mg 03/19/18 08:47 03/19/18 09:16 Solu-Medrol 125 Mg IVP 03/19/18 08:48 125 mg ONCE STA Administration Sodium Chloride 1 syr 03/19/18 08:45 Saline Flush IVF PRN PRN To flush IV Vital Signs: Temp Pulse Resp BP Pulse Ox 03/19/18 08:41 98.4 F 65 22 165/58 H 95 Departure - Departure Time of Disposition: 12:00 Disposition: ADMITTED INPATIENT Discharge Problem: Pneumonia Qualifiers: Pneumonia type: due to unspecified organism Laterality: right Lung location: middle lobe of lung Qualified Code(s): J18.1 - Lobar pneumonia, unspecified organism Instructions: Pneumonitis (ED) Condition: Good Pt referred to PMD for follow-up: Yes IPMP verified?: No Additional Instructions: Please call your Family Physician as soon as possible to schedule a follow-up appointment. Allergies/Adverse Reactions: Allergies gabapentin Adverse Reaction (Verified 03/19/18 08:56) Swelling STATES, "MAKES HIM SWELL AND HOLD WATER" Home Medications: Ambulatory Orders Polyethylene Glycol 3350 [Clearlax] 119 gm PO BEDTIME 05/24/13 Acetaminophen [Tylenol] 1,000 mg PO TID 09/21/14 Aspirin [Aspir 81] 81 mg PO DAILY 06/07/15 Albuterol Sulfate [Proair Hfa] 8.5 gm IH PRN PRN #1 ih 04/28/17
[2018-03-19] MEDS ORDERED: HUMULIN R SUBCUT STA (11:33)
[2018-03-19] MEDS ORDERED: ROCEPHIN ONE (11:50)
[2018-03-19] MEDS ORDERED: SODIUM CHLORIDE 1,000 ML IV SCH (12:00)
[2018-03-19] MEDS: DUONEB NEB SCH ×3 (12:01→23:45)
[2018-03-19] MEDS: ROCEPHIN 1 GM in SODIUM CHLORIDE 50 ML IV SCH (12:02)
[2018-03-19] MEDS ORDERED: LEVAQUIN 100 ML IV ONE (12:58)
[2018-03-19] MEDS: LEVAQUIN 500 MG in PREMIX 100 ML D5W 1 BAG IV SCH (13:06)
[2018-03-19] MEDS: TYLENOL PO SCH ×2 (16:16→22:20)
[2018-03-19] MEDS: HUMULIN R SUBCUT PRN ×2 (18:00→23:03)
[2018-03-19] MEDS: GLUCOTROL PO SCH (18:00)
[2018-03-19] MEDS ORDERED: NON-FORMULARY MEDICATION (Glipizide [Glucotrol] 10 MG) PO SCH (21:00)
[2018-03-19] MEDS ORDERED: POLYETHYLENE GLYCOL 119 GM PO SCH (21:00)
--- NOTE | 2018-03-19 21:40 | ED.PDOC ---
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
[2018-03-19] MEDS: ZESTRIL PO SCH (22:21)
[2018-03-19] MEDS ORDERED: LOVENOX SUBCUT SCH (23:30)
[2018-03-20] MEDS: DUONEB NEB SCH ×4 (05:15→20:15)
[2018-03-20] MEDS: DEMADEX PO SCH (06:21)
[2018-03-20] MEDS: SYNTHROID PO SCH (06:21)
[2018-03-20] MEDS: HYTRIN PO SCH (08:38)
[2018-03-20] MEDS: TYLENOL PO SCH ×3 (08:38→22:21)
[2018-03-20] MEDS: ZESTRIL PO SCH ×2 (08:38→22:26)
[2018-03-20] MEDS: LEVAQUIN 500 MG in PREMIX 100 ML D5W 1 BAG IV SCH (08:39)
[2018-03-20] MEDS: ASPIRIN EC PO SCH (08:39)
[2018-03-20] MEDS: GLUCOTROL PO SCH ×2 (08:39→16:40)
[2018-03-20] MEDS: PROAIR HFA IH PRN ×2 (08:49→16:12)
[2018-03-20] MEDS: FLOVENT HFA 220 MCG IH SCH (08:53)
[2018-03-20] MEDS ORDERED: FLUTICASONE PROPIONATE IH SCH (09:00)
[2018-03-20] MEDS ORDERED: MIRALAX PO SCH ×3 (09:00→21:00)
[2018-03-20] MEDS: ROCEPHIN 1 GM in SODIUM CHLORIDE 50 ML IV SCH (10:39)
[2018-03-20] MEDS: HUMULIN R SUBCUT PRN (10:59)
[2018-03-20] MEDS ORDERED: LOVENOX SUBCUT SCH (21:00)
[2018-03-21] MEDS: DUONEB NEB SCH ×2 (05:30→10:07)
[2018-03-21 06:13] VITALS: BP 118/55; TEMP 97.5
[2018-03-21] MEDS: SYNTHROID PO SCH (06:15)
[2018-03-21] MEDS: DEMADEX PO SCH (06:15)
[2018-03-21] MEDS: TYLENOL PO SCH (08:34)
[2018-03-21] MEDS: HYTRIN PO SCH (08:34)
[2018-03-21] MEDS: ROCEPHIN 1 GM in SODIUM CHLORIDE 50 ML IV SCH (08:34)
[2018-03-21] MEDS: ASPIRIN EC PO SCH (08:34)
[2018-03-21] MEDS: GLUCOTROL PO SCH (08:34)
[2018-03-21] MEDS: ZESTRIL PO SCH (08:35)
[2018-03-21] MEDS: FLOVENT HFA 220 MCG IH SCH (08:36)
[2018-03-21] MEDS ORDERED: LIDOCAINE HCL 1% SDV IM STA (10:43)
[2018-03-21] MEDS ORDERED: ROCEPHIN ONE (10:55)
[2018-03-21] MEDS ORDERED: LEVAQUIN ONE (10:55)
[2018-03-21] MEDS: LEVAQUIN 500 MG in PREMIX 100 ML D5W 1 BAG IV SCH (10:55)
[2018-03-21] MEDS ORDERED: LIDOCAINE 1% 20 ML MDV ONE (10:56)
[2018-03-21] MEDS ORDERED: LIDOCAINE HCL 1% SDV ONE (10:57)
[2018-03-21] MEDS ORDERED: LEVAQUIN PO SCH (11:00)
[2018-03-21] MEDS ORDERED: ROCEPHIN IM SCH (11:00)
--- NOTE | 2018-03-23 13:27 | HP ---
DATE OF SERVICE: 03/19/18 CHIEF COMPLAINT: Shortness of breath. SOURCE OF HISTORY: The patient. HISTORY OF PRESENT ILLNESS: 27-year-old male who has been admitted previously because of shortness of breath. Also he has asthma. He stopped smoking several years ago. The patient claimed that he had been wheezing intermittently over the last four days. He did not become short of breath until early the morning of presentation to the emergency room. The patient, in the emergency room, was given 125 mg of Solu-Medrol intravenously as well as Ceftriaxone 1 gm intravenously. Duoneb nebulizer was also used. The CT scan of the chest showed nodular consolidation in the right middle lobe, probably pneumonitis. Repeat CT in 6 months. Enlarged fatty liver. The patient was then admitted for pneumonitis. PAST MEDICAL HISTORY: The patient had been known to have type 2 diabetes mellitus, elevated BMI for years, benign prostatic hypertrophy. He also had asthma. He stopped smoking years ago. PAST SURGICAL HISTORY: Cholecystectomy Vasectomy Cataract Tonsillectomy Cyst removal, back PAST PERSONAL HISTORY: The patient had gastric obstruction, cholecystectomy, vasectomy, tonsillectomy and removal of a cyst in the back. FAMILY HISTORY: Mother had COPD. Father had diabetes mellitus. Sister had gyneologic cancer. A brother also had carcinoma but he does not know what it was. SOCIAL HISTORY: The patient is and resides alone and is self sufficient. MEDICATIONS: (HOME PRIOR TO THIS ADMISSION) Clearlax at bedtime Tylenol 1,000 mg three times a day Aspirin 81 mg daily Proair HFA one inhalation p.r.n. Symbicort 160/4.5 one puff twice a day Torsemide 20 mg daily Flovent one inhalation daily or twice a day Glucotrol 10 mg tablet twice a day Lisinopril 10 mg twice a day Terazosin 5 mg daily Levothyroxine 112 mcg daily ALLERGIES: GABAPENTIN REVIEW OF SYSTEMS: CONSTITUTIONAL: The patient had no fever, no chills. He had fatigue due to cough. RADIOLOGY DIRECTOR: Denies any headaches. Denies any syncopal episode or seizure disorder. VISUAL: Denies any blurred vision, double vision or loss of vision. AUDITORY: Hearing is decreased. Denies any tinnitus, pain or drainage. RESPIRATORY: The patient has shortness of breath with some cough plus expiratory wheezing. CARDIOVASCULAR: Denies any chest pain, chest tightness. GI: The patient's appetite is good. Denies any problems swallowing solids or liquids and no abdominal pain. No diarrhea. GENITOURINARY: Denies any pain on urination. INTEGUMENT: Denies any pruritus or any skin eruptions. MUSCULOSKELETAL: The patient has pain in the lumbar area as well as joints mostly knees. ENDOCRINE: The patient has no polyuria or polydipsia but he is a Type 2 diabetic , not quite controlled. HEMATOLOGY: No history of prolonged bleeding. PSYCHIATRIC: Affect is normal. PHYSICAL EXAMINATION: GENERAL: This is a 77-year-old male admitted to the hospital because of shortness of breath and right middle lobe pneumonitis. VITAL SIGNS: Temperature 98.4, pulse 65, BP 165/58, respiratory rate 22, oxygen saturation 95 on room air. Weight 310 lbs, 5'8". HEAD: Unremarkable. Scalp: No active dermatitis. Face: Symmetrical and equal with no facial weakness and no cyanosis. Eyes: Pupils are equal and reactive to light and round. Conjunctiva slightly pale. Sclerae nonicteric. MOUTH: Unremarkable. THROAT: No inflammation, no exudate. NECK: No masses. No bruit. No tenderness. No rigidity. CHEST: Essentially symmetrical and equal. Diminished breath sounds. No rales or wheezing. He was examined after he was given medication from the emergency room. HEART: Normal sinus rhythm. No murmurs. Audible and regular with good tones. No murmurs. ABDOMEN: Markedly protuberant, soft with no remarkable tenderness. No guarding. Bowel sounds are active. No masses palpable. EXTERNAL GENITALIA: Not examined. RECTAL: Not performed. LOWER EXTREMITIES: Edematous. 2+ pitting edema. Posterior tibials are absent. UPPER EXTREMITIES: Symmetrical and equal. ASSESSMENT: 1. RIGHT MIDDLE LOBE PNEUMONITIS 2. SHORTNESS OF BREATH MAYBE SECONDARY TO ASTHMATIC EXACERBATION 3. TYPE 2 DIABETES MELLITUS 4. HYPERTENSION 5. PERIPHERAL ARTERIAL DISEASE 6. ABSENT POSTERIOR TIBIAL PULSES 7. HYPOTHYROIDISM 8. HISTORY OF BILATERAL VENOUS INSUFFICIENCY 9. HISTORY OF NGUS FOLLOWED BY SEAM FINISHER/ONCOLOGIST 10. MARKEDLY ELEVATED BMI MTDD
--- NOTE | 2018-03-23 13:32 | PN ---
DATE OF SERVICE: 03/20/18 SUBJECTIVE: The patient is alert and feeling better. He is not short of breath. His color is good. Lungs have inspiratory and expiratory wheeze but less. He did not have any yesterday after he was given Solu-Medrol. The patient is receiving Cefriaxone 1 gm intravenously daily as well as Levofloxacin 500 mg daily. The patient is on prophylactic Lovenox. The patient improved. MTDD
--- NOTE | 2018-04-22 11:22 | DS ---
DATE OF SERVICE: 03/21/18 PATIENT IDENTIFICATION: 77 year old male who had been experiencing intermittent wheezing in the last four days prior to presentation to the emergency room did experience shortness of breath early in the day of the admission. He did come to the emergency room because of shortness of breath. The patient during the course of examination was found to have wheezing in both lung becerra. He x-ray showed right middle lobe pneumonitis. This patient had previous right upper and middle lobe pneumonia. The patient was treated with Levaquin 500mg daily intervenously as well as Rocephin 1 gram intervenously daily. The patient veins that are difficult to access. Remigio Montoya the Nurse Lounge Car Attendant was called to start the IV access since the others have failed. His arterial blood gasses on admission showed a O2 saturation of 92, FiO2 21%, pCo2 46.3 and pO2 65. BUN 16 initially and then 22 the next day and 23 on 03/21/18. The EGFR times three showed 52 initially and 55 the next day and 53 on the day of discharge. Blood sugar was elevated on admission to the emergency room, 166 and the fasting blood sugar the next day was 176 probably due to the Solu-Medrol. The blood sugar on the day of discharge was normal 111. PSA is normal 0.756. The patient was continued on the above regiment and on 03/21/18 the felt that he is much better and he is ready to go home. His alert and oriented and not dyspneic or tachypneic. He does have some wheezing in both lung becerra although minimal. No rales. HEART: Audible with good tones ABDOMEN: unremarkable The patient is discharged today and continued on Levaquin 500mg tablet #5 to begin daily tomorrow. He is to keep his appointment for the blood test and then an office followup to discuss the results. He was further advised that if he is not any better with the antibiotic that he should contact either the office or the answering service otherwise he should wait to see me on the scheduled April appointment. Prognosis is guarded. FINAL DIAGNOSES: 1. Right middle lobe pneumonitis, maybe improved 2. Respiratory distress probably due to acute exacerbation of asthma 3. History of COPD 4. History of pneumonia,several months ago 5. History of hypothyroidism, replaced 6. Type 2 diabetes mellitus control undetermined 7. Hypertension on medication PLAN: 1. The patient needs to resume all his medications and he should see me if he has any particular problems or concerns and not to wait for the appointment in April
== END 2018-03-21 12:47 | disposition home or self-care (01) | DRG 204 ==
LOC: ED 08:39 → MEDSURG A 12:00
PROVIDERS: ADMIT General Practice; ATTEND General Practice
DX: R06.2 Wheezing (principal); J67.8 Hypersensitivity pneumonitis due to other organic dusts; J45.909 Unspecified asthma, uncomplicated; E11.9 Type 2 diabetes mellitus without complications; E03.9 Hypothyroidism, unspecified; I10 Essential (primary) hypertension; I73.9 Peripheral vascular disease, unspecified
CPT/HCPCS: 36415; 80053; 82550; 82803; 82962; 83036; 83880; 84443; 84484; 85025; 87040; 93005; 93010; 94640; 96366; 96374; 96375; 99284

== ENCOUNTER 2018-04-21 09:13 | Outpatient (CLI) | END 2018-04-21 09:14 | disposition home or self-care (01) | LOC: FCC-LAB 09:13 | PROVIDERS: ATTEND General Practice | DX: E11.40 Type 2 diabetes mellitus with diabetic neuropathy, unspecified (principal); C90.00 Multiple myeloma not having achieved remission; I10 Essential (primary) hypertension; E78.1 Pure hyperglyceridemia; E03.9 Hypothyroidism, unspecified; Z79.899 Other long term (current) drug therapy | CPT/HCPCS: 36415; 80053; 80061; 83036; 85025 ==

== ENCOUNTER 2018-04-22 15:46 | Outpatient (CLI) | END 2018-04-22 15:47 | LOC: FCC-LAB 15:46 | PROVIDERS: ATTEND General Practice | DX: E11.8 Type 2 diabetes mellitus with unspecified complications (principal); E11.40 Type 2 diabetes mellitus with diabetic neuropathy, unspecified; C90.00 Multiple myeloma not having achieved remission; I10 Essential (primary) hypertension; E78.1 Pure hyperglyceridemia; E03.9 Hypothyroidism, unspecified; Z79.899 Other long term (current) drug therapy | CPT/HCPCS: 81001 ==

== ENCOUNTER 2018-07-20 09:17 | Outpatient (CLI) | END 2018-07-20 09:18 | disposition home or self-care (01) | LOC: RHC-LAB 09:17 | PROVIDERS: ATTEND General Practice | DX: E11.40 Type 2 diabetes mellitus with diabetic neuropathy, unspecified (principal); E11.8 Type 2 diabetes mellitus with unspecified complications; C90.00 Multiple myeloma not having achieved remission; I10 Essential (primary) hypertension; E78.1 Pure hyperglyceridemia; Z79.899 Other long term (current) drug therapy | CPT/HCPCS: 36415; 80053; 80061; 85025 ==

== ENCOUNTER 2018-09-15 13:08 | Outpatient (POV) | END 2018-09-15 17:00 | LOC: OUTPT 13:08 | PROVIDERS: ATTEND Otolaryngology | DX: H91.90 Unspecified hearing loss, unspecified ear (principal) | CPT/HCPCS: 92557; 92567 ==

== ENCOUNTER 2018-10-26 07:52 | Outpatient (CLI) | END 2018-10-26 07:53 | disposition home or self-care (01) | LOC: RHC-LAB 07:52 | PROVIDERS: ATTEND General Practice | DX: E11.40 Type 2 diabetes mellitus with diabetic neuropathy, unspecified (principal); E11.8 Type 2 diabetes mellitus with unspecified complications; C90.00 Multiple myeloma not having achieved remission; I10 Essential (primary) hypertension; E78.1 Pure hyperglyceridemia; Z79.899 Other long term (current) drug therapy | CPT/HCPCS: 36415; 80053; 80061; 81001; 83036; 84443; 85025 ==

== ENCOUNTER 2019-01-24 08:11 | Outpatient (CLI) | payer OTHER | END 2019-01-24 08:12 | disposition home or self-care (01) | LOC: RHC-LAB 08:11 | PROVIDERS: ATTEND General Practice | DX: E11.8 Type 2 diabetes mellitus with unspecified complications (principal); I10 Essential (primary) hypertension; Z79.899 Other long term (current) drug therapy | CPT/HCPCS: 36415; 80053; 80061; 81001; 83036; 85025 ==

== ENCOUNTER 2019-03-08 06:49 | Day surgery (SDC) ==
[2019-03-08 07:54] VITALS: TEMP 96.6
[2019-03-08] MEDS ORDERED: LIDOCAINE HCL 2% LUER-JET ONE (09:30)
[2019-03-08] MEDS ORDERED: VERSED ONE (09:30)
[2019-03-08] MEDS ORDERED: DIPRIVAN 20 ML VIAL IVP ONE (09:30)
[2019-03-08 11:36] VITALS: BP 125/67
--- NOTE | 2019-03-09 08:39 | OP ---
INDICATIONS FOR PROCEDURE: 78-year-old gentleman presents complaining of solid food dysphagia over the last couple of months. MEDICATIONS: SEE ANESTHESIA NOTES. PROCEDURE: ENDOSCOPY, CHILEAN DILATATION. REPORT: The risks, benefits, alternatives and limitations were discussed in detail with the patient. Informed consent was obtained. After adequate sedation was achieved, the video endoscope was introduced in the posterior pharynx and esophagus under direct vision and easily advanced down to the second portion of the duodenum. I then slowly withdrew. The duodenal mucosa appeared unremarkable other than a few small angioectasias in the second portion. The bulb was unremarkable. The antrum and body were relatively unremarkable. The scope was retroflexed to look at the cardia and fundus which was unremarkable. The scope was anteflexed and withdrawn back through the esophagus. This appeared unremarkable its entire length. I advanced the scope back down the gastric lumen. I placed a guidewire. Over the guidewire, I easily advanced a 54 Arabic Kazakh dilator. The patient tolerated the procedure well with stable vital signs and pulse oximetry throughout. IMPRESSION: 1. SMALL DUODENAL ANGIECTASIA. 2. NOTHING FOUND TO ACCOUNT FOR HIS DYSPHAGIA. 3. SUCCESSFUL PASSIVE DILATATION OF THE ESOPHAGUS. RECOMMENDATIONS: 1. I advised him to cut and chew his food well. 2. If he continues to have intermittent dysphagia to solid foods then I suggest he try an [id number] PPI such as Omeprazole 20 mg daily for one month. 3. Will see him back in the office as needed. CC: DR. IVAN WYLIE
== END 2019-03-08 10:35 | disposition home or self-care (01) ==
LOC: SURG 06:49
PROVIDERS: ATTEND Internal Medicine Gastroenterology
DX: R13.10 Dysphagia, unspecified (principal); K31.819 Angiodysplasia of stomach and duodenum without bleeding

== ENCOUNTER 2021-09-06 11:21 | Inpatient (IN) ==
[2021-09-06] MEDS ORDERED: VENTOLIN HFA (PER PUFF-WITH SPACER) IH ONE (12:23)
[2021-09-06] MEDS ORDERED: SOLU-MEDROL 125 MG IVP STA (12:23)
[2021-09-06] MEDS ORDERED: LASIX IVP ONE (12:23)
--- NOTE | 2021-09-06 12:30 | ED.PDOC ---
General ED Provider: Dr. CARLY CHEEMA MD Chief Complaint: Shortness of Air Stated Complaint: mild to mod shortness of breath and ngo getting worse for a few days, +home oxygen, hx noncompliance, dm, copd, htn Time Seen by Provider: 09/06/21 12:20 Mode of Arrival: Ambulance Information Source: Patient Nursing and Triage Documentation Reviewed and Agree: Yes Does patient meet sepsis criteria?: No System Inflammatory Response Syndrome: Not Applicable Sepsis Protocol: For patient's 13 years and over: Temp is 96.8 and below OR 101 and greater Pulse >90 BPM Resp >20/minute Acutely Altered Mental Status Are patient's symptoms suggestive of a new infection, such as: -Pneumonia -Skin, Soft Tissue -Endocarditis -UTI -Bone, Joint Infection -Implantable Device -Acute Abdominal Infection -Wound Infection -Meningitis -Blood Stream Catheter Infection -Unknown Review of Systems Review Of Systems Constitutional: Reports Malaise; Denies Fever Eyes: Denies Vision change Ears, Nose, Mouth, Throat: Denies Throat pain Respiratory: Reports Cough, Short of air and Wheezing Cardiac: Denies Chest pain GI: Denies Abdominal pain : Denies Flank pain Musculoskeletal: Denies Neck pain Skin: Denies Rash or Cyanosis Neurological: Denies Cognitive dysfunction All Other Systems: Other [facility] Medical History Anemia Asthma Bilateral impacted cerumen Chronic kidney disease, stage 3 (moderate) Chronic obstructive pulmonary disease Diabetes mellitus type 2, controlled Diabetic neuropathy Hearing difficulty of both ears Hyperglycemia Hypertension Hypothyroidism IgA myeloma Iron deficiency anemia Metabolic syndrome Otitis externa PAD (peripheral artery disease) Paroxysmal nocturnal dyspnea Peripheral neuropathy Renal insufficiency Seizures Sensorineural hearing loss (SNHL) of both ears Thrombocytopenia Type 2 diabetes mellitus with hyperglycemia Type II diabetes mellitus Social History Smoking and tobacco status: Former smoker Passive smoking exposure: No Second hand smoke exposure: No Smoking risk assessment performed: No Alcohol intake: never Counseling given: No Substance use type: does not use Counseling given: No Household members: none Marital status: D Lives independently: Yes Daycare: no daycare service: No senior living: No Current occupational status: retired Current occupational exposures/hazards: No History of recent travel: No Sexually active: No Do you think of yourself as: straight/heterosexual Current gender identity: male Seatbelt use: always Surgical History Status post cholecystectomy Status post tonsillectomy Physical Exam Physical Exam Appearance: Reports No pain distress Ill-appearing: Mild Pain Distress: None Eyes: Reports Conjunctiva clear ENT: Denies Rhinorrhea Neck: Supple Respiratory: Reports Airway patent and Wheezes Cardiovascular: Reports RRR GI/: Reports Soft and Nontender Musculoskeletal: Reports Edema Skin: Reports Warm and Dry Neurological: Reports Alert and Oriented Psychiatric: Reports Affect appropriate Interpretation Radiology Interpretation Radiology Interpretation By: Radiologist Radiology Results: No acute changes Exam Interpreted: CXR EKG Interpretation Time of EKG #1: 15:26 Rate: Normal Rhythm: Sinus Interpretation: no stemi Critical Care Note Critical Care Note Total Critical Care Time (mins): 0 Course Course Hematology/Chemistry: 09/06/21 12:40 09/06/21 12:40 Orders, Labs, Meds: Lab Review 09/06/21 09/06/21 09/06/21 12:30 12:40 12:40 WBC 6.36 RBC 3.60 L Hgb 11.0 L Hct 34.9 L MCV 96.9 H MCH 30.6 MCHC 31.5 L RDW Coeff of Torri 15.2 H Plt Count 97 L Immature Gran % (Auto) 0.3 Neut % (Auto) 69.1 Lymph % (Auto) 10.8 Fannin % (Auto) 4.6 Eos % (Auto) 14.6 H Baso % (Auto) 0.6 Neut # (Auto) 4.4 Lymph # (Auto) 0.7 Fannin # (Auto) 0.3 L Eos # (Auto) 0.9 H Baso # (Auto) 0.0 Immature Gran # (Auto) 0.0 Puncture Site R rad Base Excess 4.4 H O2 Saturation 82.8 L ABG pH 7.31 L ABG pCO2 61.0 H ABG pO2 52.0 L* ABG HCO3 30.7 H ABG Total CO2 32.6 H Shilo Test Y Hemoglobin 1.3 Oxyhemoglobin 86.8 L Carboxyhemoglobin 1.9 H Total Hemoglobin 11.0 L O2 Delivery Device FiO2 % 21.0 Sodium 139.4 Potassium 4.27 Chloride 102.6 Carbon Dioxide 31.5 H Anion Gap 9.57 BUN 17.3 Creatinine 1.34 H Estimated GFR (MDRD) 51.00 BUN/Creatinine Ratio 12.91 Glucose 126.5 H Lactic Acid Calcium 9.30 Total Bilirubin 0.48 AST 25.0 ALT 20.1 Alkaline Phosphatase 91.5 Troponin I < 0.012 NT-Pro-B Natriuret Pep 477.000 H Total Protein 6.95 Albumin 4.29 Globulin 2.66 Albumin/Globulin Ratio 1.61 D-Dimer Adenovirus (PCR) B. pertussis DNA (PCR) B.parapertussis DNA PCR C. pneumoniae DNA (PCR) Coronavirus OC43 (PCR) Coronavirus HKU1 (PCR) Coronavirus 229E (PCR) Coronavirus NL63 (PCR) Human Metapneumovir PCR Influenza Type A (PCR) Influenza B (RT-PCR) M. pneumoniae (PCR) Parainfluenza 1 (PCR) Parainfluenza 2 (PCR) Parainfluenza 3 (PCR) Parainfluenza 4 (PCR) RSV (PCR) Entero/Rhino (PCR) SARS-CoV-2 (PCR) 09/06/21 09/06/21 09/06/21 12:40 12:40 13:20 WBC RBC Hgb Hct MCV MCH MCHC RDW Coeff of Torri Plt Count Immature Gran % (Auto) Neut % (Auto) Lymph % (Auto) Fannin % (Auto) Eos % (Auto) Baso % (Auto) Neut # (Auto) Lymph # (Auto) Fannin # (Auto) Eos # (Auto) Baso # (Auto) Immature Gran # (Auto) Puncture Site Base Excess O2 Saturation ABG pH ABG pCO2 ABG pO2 ABG HCO3 ABG Total CO2 Shilo Test Hemoglobin Oxyhemoglobin Carboxyhemoglobin Total Hemoglobin O2 Delivery Device FiO2 % Sodium Potassium Chloride Carbon Dioxide Anion Gap BUN Creatinine Estimated GFR (MDRD) BUN/Creatinine Ratio Glucose Lactic Acid 1.06 Calcium Total Bilirubin AST ALT Alkaline Phosphatase Troponin I NT-Pro-B Natriuret Pep Total Protein Albumin Globulin Albumin/Globulin Ratio D-Dimer 949.68 H Adenovirus (PCR) Not detected B. pertussis DNA (PCR) Not detected B.parapertussis DNA PCR Not detected C. pneumoniae DNA (PCR) Not detected Coronavirus OC43 (PCR) Not detected Coronavirus HKU1 (PCR) Not detected Coronavirus 229E (PCR) Not detected Coronavirus NL63 (PCR) Not detected Human Metapneumovir PCR Not detected Influenza Type A (PCR) Not detected Influenza B (RT-PCR) Not detected M. pneumoniae (PCR) Not detected Parainfluenza 1 (PCR) Not detected Parainfluenza 2 (PCR) Not detected Parainfluenza 3 (PCR) Not detected Parainfluenza 4 (PCR) Not detected RSV (PCR) Not detected Entero/Rhino (PCR) Not detected SARS-CoV-2 (PCR) Not detected 09/06/21 14:13 WBC RBC Hgb Hct MCV MCH MCHC RDW Coeff of Torri Plt Count Immature Gran % (Auto) Neut % (Auto) Lymph % (Auto) [place] % (Auto) Eos % (Auto) Baso % (Auto) Neut # (Auto) Lymph # (Auto) Fannin # (Auto) Eos # (Auto) Baso # (Auto) Immature Gran # (Auto) Puncture Site Rr Base Excess 3.4 H O2 Saturation 94.4 ABG pH 7.26 L* ABG pCO2 68.0 H ABG pO2 83.0 L ABG HCO3 30.5 H ABG Total CO2 32.6 H Shilo Test Pos Hemoglobin 1.3 Oxyhemoglobin 94.2 L Carboxyhemoglobin 1.6 H Total Hemoglobin 11.5 L O2 Delivery Device Bipap FiO2 % 30.0 Sodium Potassium Chloride Carbon Dioxide Anion Gap BUN Creatinine Estimated GFR (MDRD) BUN/Creatinine Ratio Glucose Lactic Acid Calcium Total Bilirubin AST ALT Alkaline Phosphatase Troponin I NT-Pro-B Natriuret Pep Total Protein Albumin Globulin Albumin/Globulin Ratio D-Dimer Adenovirus (PCR) B. pertussis DNA (PCR) B.parapertussis DNA PCR C. pneumoniae DNA (PCR) Coronavirus OC43 (PCR) Coronavirus HKU1 (PCR) Coronavirus 229E (PCR) Coronavirus NL63 (PCR) Human Metapneumovir PCR Influenza Type A (PCR) Influenza B (RT-PCR) M. pneumoniae (PCR) Parainfluenza 1 (PCR) Parainfluenza 2 (PCR) Parainfluenza 3 (PCR) Parainfluenza 4 (PCR) RSV (PCR) Entero/Rhino (PCR) SARS-CoV-2 (PCR) Orders Category Date Time Status ABG DRAW REQUEST DAILY@0600 CARDIO 09/07/21 06:00 Ordered ABG DRAW REQUEST DAILY@0600 CARDIO 09/08/21 06:00 Ordered ABG DRAW REQUEST DAILY@0600 CARDIO 09/09/21 06:00 Ordered ABG DRAW REQUEST DAILY@0600 CARDIO 09/10/21 06:00 Ordered ABG DRAW REQUEST Stat CARDIO 09/06/21 12:23 Completed ABG DRAW REQUEST Stat CARDIO 09/06/21 13:45 Completed ABG DRAW REQUEST Stat CARDIO 09/06/21 15:15 Ordered BIPAP Routine CARDIO 09/06/21 12:57 Active EKG-(ED ONLY) Stat CARDIO 09/06/21 12:23 Completed METERED DOSE INHALATION Routine CARDIO 09/06/21 12:26 Completed OXYGEN [ED APPLY O2] .ONCE EMERGENCY 09/06/21 12:23 Active ABG COOX DAILY@0600 LAB 09/07/21 06:00 Ordered ABG COOX DAILY@0600 LAB 09/08/21 06:00 Ordered ABG COOX DAILY@0600 LAB 09/09/21 06:00 Ordered ABG COOX DAILY@0600 LAB 09/10/21 06:00 Ordered ABG COOX Stat LAB 09/06/21 12:30 Completed ARTERIAL BLOOD GAS [ABG COOX] Stat LAB 09/06/21 14:13 Completed ARTERIAL BLOOD GAS [ABG COOX] Stat LAB 09/06/21 14:51 Ordered CBC W/ AUTO DIFF Stat LAB 09/06/21 12:40 Completed CMP [COMPREHENSIVE METABOLIC PANEL] Stat LAB 09/06/21 12:40 Completed D-DIMER Stat LAB 09/06/21 12:40 Completed LACTIC ACID Stat LAB 09/06/21 12:40 Completed NT-PROBNP Stat LAB 09/06/21 12:40 Completed RESPIRATORY PANEL 2.1 (PCR) Stat LAB 09/06/21 13:20 Completed TROPONIN I Stat LAB 09/06/21 12:40 Completed UA [URINALYSIS C & S IF INDICATED] Stat LAB 09/06/21 12:23 Uncollected Albuterol Inhaler(with Spacer) [Ventolin Hfa (Per Puff- MEDS 09/06/21 12:23 Discontinued with Spacer)] 2 puff IH ONCE ONE Furosemide [Lasix] MEDS 09/06/21 12:23 Discontinued 20 mg IVP ONCE ONE Methylprednisolone Sod Succ/Pf [Solu-Medrol 125 mg] MEDS 09/06/21 12:23 Discontinued 125 mg IVP ONCE STA CHEST, 1V AP ONLY Stat RADS 09/06/21 12:23 Completed Medications Discontinued Medications Generic Name Dose Route Start Last Admin Trade Name Freq PRN Reason Stop Dose Admin Albuterol Sulfate 2 puff 09/06/21 12:23 09/06/21 12:50 Albuterol Sulfate (Ventolin Hfa) 18 Gm 1 Puff With Spacer IH 09/06/21 12:24 2 puff ONCE ONE Administration Furosemide 20 mg 09/06/21 12:23 09/06/21 12:46 Furosemide Inj 20 Mg/2 Ml Vial IVP 09/06/21 12:24 20 mg ONCE ONE Administration Methylprednisolone Sodium Succinate 125 mg 09/06/21 12:23 09/06/21 12:46 Methylprednisolone Sod Succ/Pf 125 Mg/2 Ml Vial IVP 09/06/21 12:24 125 mg ONCE STA Administration Vital Signs: Temp Pulse Resp BP Pulse Ox 09/06/21 12:51 100 09/06/21 11:55 98.0 F 67 24 146/50 H 98 Discharge Plan Discharge Patient Disposition: ADMITTED INPATIENT Discharge Problem: COPD exacerbation, CHF (congestive heart failure), D-dimer, elevated Prescriptions: No Action aspirin [Aspir-81] 81 MG tablet,delayed release (DR/EC) 81 mg PO DAILY 0RF (DME) lancets 1 EACH misc 1 ea MC DAILY Qty: 100 1RF Rx Instructions: Use with approved glucometer for daily blood sugar testing. (DME) BD Blunt Plastic Cannula 1 EACH syringe 1 sz MC WEEKLY Qty: 4 1RF Rx Instructions: To use along with B12 injection, needle 25g 1/2" albuterol sulfate 2.5 mg /3 mL (0.083 %) solution for nebulization 2.5 mg inhalation Q4H PRN (Reason: shortness of breath or wheezing) Qty: 180 6RF terazosin 5 mg capsule 5 mg PO DAILY Qty: 90 3RF Rx Instructions: one by mouth daily pentoxifylline 400 mg tablet extended release 400 mg PO BID Qty: 60 3RF Rx Instructions: administer with meals pregabalin [Lyrica] 50 mg capsule 50 mg PO TID Qty: 90 2RF lisinopril 20 mg tablet 20 mg PO BID Qty: 60 3RF budesonide-formoterol [Symbicort] 160-4.5 mcg/actuation HFA aerosol inhaler 1 puff inhalation BID PRN (Reason: Bronchospasm) Qty: 1 6RF Rx Instructions: TAKE ONE PUFF TWICE A DAY Atrovent HFA 17 mcg/actuation HFA aerosol inhaler 2 puff IH TID Qty: 12.9 6RF bisacodyl 5 mg tablet 5 - 10 mg PO QDAY PRN (Reason: constipation) Qty: 30 3RF torsemide 20 mg tablet 20 mg PO DAILY Qty: 90 4RF Rx Instructions: Take one tablet daily. levothyroxine 112 mcg tablet 112 mcg PO DAILY Qty: 90 4RF Rx Instructions: Take one tablet daily on an empty stomach, 2 hours prior to other medications (DME) blood sugar diagnostic Strip See Rx Instructions .ROUTE .MEDSUPPLY Qty: 200 12RF Rx Instructions: four times daily insulin lispro [Humalog KwikPen Insulin] 100 unit/mL insulin pen 5 unit subcut QAC Qty: 15 1RF (DME) pen needle, diabetic [Lite Touch Insulin Pen [place]] 31 gauge x 5/16" needle See Rx Instructions .ROUTE .MEDSUPPLY Qty: 100 3RF Rx Instructions: use three times daily Myrbetriq 25 mg tablet extended release 24 hr 25 mg PO Q24H 0RF dexamethasone sodium phosphate 10 mg/mL solution 10 mg IM ONCE Qty: 1 0RF (DME) RYAN Ankle Brace Misc See Rx Instructions .ROUTE .MEDSUPPLY Qty: 1 0RF Rx Instructions: As directed polyethylene glycol 3350 [Miralax] 17 gram/dose powder 17 gm PO QHS 0RF diclofenac sodium [Arthritis Pain (diclofenac)] 1 % gel 4 g topical QID Qty: 100 6RF Rx Instructions: apply to single knee, ankle, foot; for foot includes sole/toes/top of foot albuterol sulfate [ProAir HFA] 90 mcg/actuation HFA aerosol inhaler 2 puff IH Q6H PRN (Reason: shortness of breath) Qty: 18 6RF glipizide 10 mg tablet 10 mg PO BID Qty: 60 5RF ED Provider: CARLY CHEEMA Condition: Stable Physician Progress Note: []pt admitted for chf and copd and elevated ddimer w/ renal insufficiency to hospitalist service, care to Dr Blair at 19:00
[2021-09-06 12:35] LABS: ABG O2 HGB 86.8 % (95-100); ABG PH 7.31 (7.35-7.45); BEecf 4.4 (-2.0-3.0); COHb 1.9 (0.5-1.5); HCO3 30.7 (21-28); MetHb 1.3 (0-1.5); TCO2 32.6 (19-24); sO2 82.8 % (94-98)
[2021-09-06 12:49] LABS: BASOPHILS % (AUTO) 0.6 % (0.0-3.0); EOSINOPHILS # (AUTO) 0.9 K/ul (0.0-0.7); EOSINOPHILS % (AUTO) 14.6 % (0.0-7.0); HEMATOCRIT 34.9 % (42.0-52.0); IMMATURE GRANULOCYTE % (AUTO) 0.3 % (0.0-5.0); LYMPHOCYTES # (AUTO) 0.7 K/uL (0.60-3.4); LYMPHOCYTES % (AUTO) 10.8 (10.0-50.0); MEAN CORPUSCULAR HEMOGLOBIN 30.6 pg (27.0-31.0); MEAN CORPUSCULAR HGB CONC 31.5 (31.8-35.4); MEAN CORPUSCULAR VOLUME 96.9 fl (80.0-94.0); MONOCYTES # (AUTO) 0.3 K/uL (0.4-2.0); MONOCYTES % (AUTO) 4.6 (0-10); NEUTROPHILS # (AUTO) 4.4 K/ul (2.0-6.9); NEUTROPHILS % (AUTO) 69.1 % (42.2-75.2); PLATELET COUNT 97 10^3/uL (140-440); RDW COEFFICIENT OF VARIATION 15.2 % (11.6-14.8); WHITE BLOOD COUNT 6.36 K/ul (4.2-10.2)
[2021-09-06 12:57] LABS: ALANINE AMINOTRANSFERASE 20.1 U/L (0-50); ALBUMIN 4.29 g/dL (3.5-5.0); ALKALINE PHOSPHATASE 91.5 U/L (56-119); BILIRUBIN,TOTAL 0.48 mg/dL (0.2-1.3); BLOOD UREA NITROGEN 17.3 mg/dL (9-20); CARBON DIOXIDE 31.5 mmol/L (22-30.0); CHLORIDE 102.6 mmol/L (98-107); CREATININE 1.34 mg/dL (0.60-1.10); GLUCOSE 126.5 mg/dL (74-106); POTASSIUM 4.27 mmol/L (3.5-5.1); SODIUM 139.4 mmol/L (134.5-145); TOTAL PROTEIN 6.95 g/dL (6.3-8.2)
[2021-09-06 13:09] LABS: TROPONIN I < 0.012 ng/ml (0.0000-0.120)
--- NOTE | 2021-09-06 13:22 | DI ---
EXAM: Chest one view, frontal view only. HISTORY: Weakness. COMPARISON: 04/09/2021, 08/27/2020. FINDINGS: The heart size is the limits of normal. There is no pulmonary vascular congestion. Perib ronchial thickening in both lungs is stable from prior imaging likely due to chronic airway inflammat ion. Otherwise, the lungs are clear. No pleural effusion or pneumothorax is seen. No acute osseous abnormality is identified. IMPRESSION: No acute cardiopulmonary process. Stable chronic peribronchial thickening.
[2021-09-06 13:35] LABS: BORDETELLA PARAPERTUSSIS (PCR) NOT DETECTED (NOT DETECT); BORDETELLA PERTUSSIS (PCR) NOT DETECTED (NOT DETECT); CHLAMYDIA PNEUMONIAE (PCR) NOT DETECTED (NOT DETECT); CORONAVIRUS 229E (PCR) NOT DETECTED (NOT DETECT); CORONAVIRUS HKU1 (PCR) NOT DETECTED (NOT DETECT); CORONAVIRUS NL63 (PCR) NOT DETECTED (NOT DETECT); CORONAVIRUS OC43 (PCR) NOT DETECTED (NOT DETECT); HUMAN METAPNEUMOVIRUS (PCR) NOT DETECTED (NOT DETECT); HUMAN RHINOVIRUS/ENTEROV (PCR) NOT DETECTED (NOT DETECT); INFLUENZA B (PCR) NOT DETECTED (NOT DETECT); MYCOPLASMA PNEUMONIAE (PCR) NOT DETECTED (NOT DETECT); PARAINFLUENZA VIRUS 1 (PCR) NOT DETECTED (NOT DETECT); PARAINFLUENZA VIRUS 2 (PCR) NOT DETECTED (NOT DETECT); PARAINFLUENZA VIRUS 3 (PCR) NOT DETECTED (NOT DETECT); PARAINFLUENZA VIRUS 4 (PCR) NOT DETECTED (NOT DETECT); RESPIRATORY SYNCYTIAL V (PCR) NOT DETECTED (NOT DETECT); SARS_COV_2 (PCR) NOT DETECTED (NOT DETECT)
[2021-09-06 14:17] LABS: ABG O2 HGB 94.2 % (95-100); BEecf 3.4 (-2.0-3.0); COHb 1.6 (0.5-1.5); HCO3 30.5 (21-28); MetHb 1.3 (0-1.5); TCO2 32.6 (19-24); sO2 94.4 % (94-98); tHb 11.5 g/dl (11.7-17.4)
[2021-09-06 14:18] LABS: ABG PH 7.26 (7.35-7.45)
[2021-09-06 14:21] LABS: ADENOVIRUS (PCR) NOT DETECTED (NOT DETECT)
[2021-09-06 15:26] LABS: ABG O2 HGB 94.1 % (95-100); BEecf 2.6 (-2.0-3.0); COHb 1.7 (0.5-1.5); HCO3 29.8 (21-28); MetHb 1.1 (0-1.5); TCO2 31.9 (19-24); sO2 92.8 % (94-98); tHb 11.7 g/dl (11.7-17.4)
[2021-09-06 15:29] LABS: ABG PH 7.25 (7.35-7.45)
[2021-09-06] MEDS ORDERED: ATROPINE SULFATE PFS IVP PRN (15:30)
[2021-09-06] MEDS ORDERED: NITROSTAT SL PRN (15:30)
[2021-09-06] MEDS ORDERED: LOVENOX SUBCUT STA (15:30)
[2021-09-06 16:40] VITALS: BMI 52.0
[2021-09-06 17:19] LABS: BILIRUBIN,URINE Negative (NEGATIVE); CLARITY,URINE Slightly (CLEAR); COLOR,URINE Light (YELLOW); GLUCOSE, URINE (UA) Negative (NEGATIVE); KETONES,URINE Negative (NEGATIVE); LEUKOCYTE ESTERASE ,URINE 1+ (NEGATIVE); NITRITE,URINE Positive (NEGATIVE); PROTEIN,URINE Negative (NEGATIVE); URINE, BLOOD 1+ (NEGATIVE); UROBILINOGEN,URINE 0.2 (0.2)
[2021-09-06 17:23] LABS: BACTERIA,URINE 2+ (NOT PRESENT); URINE WBC, MICROSCOPIC 50-100 (0-2)
[2021-09-06] MEDS: HUMULIN R SUBCUT PRN ×2 (17:26→20:50)
[2021-09-06 20:08] LABS: ABG O2 HGB 92.4 % (95-100); ABG PH 7.32 (7.35-7.45); BEecf 1.2 (-2.0-3.0); COHb 2.7 (0.5-1.5); HCO3 27.3 (21-28); MetHb 0.9 (0-1.5); TCO2 28.9 (19-24); sO2 90.1 % (94-98); tHb 11.4 g/dl (11.7-17.4)
[2021-09-06] MEDS: ZESTRIL PO SCH (20:46)
[2021-09-06] MEDS: FLOMAX PO SCH (20:46)
[2021-09-06] MEDS: LYRICA PO SCH (20:47)
[2021-09-06] MEDS: LOVENOX SUBCUT SCH (20:47)
[2021-09-06] MEDS ORDERED: HYTRIN PO SCH (21:00)
[2021-09-06] MEDS ORDERED: GLUCOTROL PO SCH (21:00)
[2021-09-06 21:09] LABS: CREATINE KINASE 82.2 U/L (55-170)
[2021-09-06 21:17] LABS: TROPONIN I < 0.012 ng/ml (0.0000-0.120)
[2021-09-06] MEDS: MIRALAX PO SCH (21:48)
[2021-09-06] MEDS ORDERED: SYNTHROID PO ONE (21:50)
[2021-09-06] MEDS: ROBITUSSIN AC SYRUP PO PRN (22:45)
[2021-09-07 03:41] LABS: ABG O2 HGB 92.4 % (95-100); COHb 2.4 (0.5-1.5); HCO3 28.7 (21-28); MetHb 0.9 (0-1.5); TCO2 30.6 (19-24); sO2 93.4 % (94-98); tHb 16.9 g/dl (11.7-17.4)
[2021-09-07 03:42] LABS: ABG PH 7.28 (7.35-7.45)
[2021-09-07] MEDS: ROBITUSSIN AC SYRUP PO PRN (04:32)
[2021-09-07] MEDS: LASIX IVP SCH (05:38)
[2021-09-07] MEDS: SYNTHROID PO SCH (05:38)
[2021-09-07 06:21] LABS: BASOPHILS % (AUTO) 0.3 % (0.0-3.0); EOSINOPHILS # (AUTO) 0.1 K/ul (0.0-0.7); EOSINOPHILS % (AUTO) 0.7 % (0.0-7.0); HEMATOCRIT 36.3 % (42.0-52.0); HEMOGLOBIN 11.6 g/dl (14.0-18.0); IMMATURE GRANULOCYTE % (AUTO) 0.6 % (0.0-5.0); LYMPHOCYTES # (AUTO) 0.5 K/uL (0.60-3.4); LYMPHOCYTES % (AUTO) 7.7 (10.0-50.0); MEAN CORPUSCULAR HEMOGLOBIN 30.6 pg (27.0-31.0); MEAN CORPUSCULAR VOLUME 95.8 fl (80.0-94.0); MONOCYTES # (AUTO) 0.2 K/uL (0.4-2.0); MONOCYTES % (AUTO) 3.4 (0-10); NEUTROPHILS % (AUTO) 87.3 % (42.2-75.2); PLATELET COUNT 116 10^3/uL (140-440); RDW COEFFICIENT OF VARIATION 14.8 % (11.6-14.8); RED BLOOD COUNT 3.79 10^6/ul (4.70-6.10); WHITE BLOOD COUNT 6.84 K/ul (4.2-10.2)
[2021-09-07 06:36] LABS: ALANINE AMINOTRANSFERASE 21.4 U/L (0-50); ALBUMIN 4.51 g/dL (3.5-5.0); ALKALINE PHOSPHATASE 99.8 U/L (56-119); ASPARTATE AMINO TRANSFERASE 24.7 U/L (17-59); BILIRUBIN,TOTAL 0.44 mg/dL (0.2-1.3); BLOOD UREA NITROGEN 22.1 mg/dL (9-20); CALCIUM 9.45 mg/dL (8.4-10.2); CREATININE 1.18 mg/dL (0.60-1.10); GLUCOSE 167.4 mg/dL (74-106); POTASSIUM 4.74 mmol/L (3.5-5.1); SODIUM 136.9 mmol/L (134.5-145); TOTAL PROTEIN 7.22 g/dL (6.3-8.2)
[2021-09-07] MEDS: GLUCOTROL PO SCH ×2 (08:28→16:45)
[2021-09-07] MEDS: ZESTRIL PO SCH ×2 (08:29→20:30)
[2021-09-07] MEDS: DITROPAN PO SCH (08:29)
[2021-09-07] MEDS: ASPIRIN EC PO SCH (08:29)
[2021-09-07] MEDS: LYRICA PO SCH ×3 (08:29→20:31)
[2021-09-07] MEDS: HYTRIN PO SCH ×2 (08:30→20:31)
[2021-09-07] MEDS: LOVENOX SUBCUT SCH ×2 (08:31→20:35)
--- NOTE | 2021-09-07 12:50 | PCM.PROG ---
Date Seen by Provider: 09/07/21 Subjective: pt noncompliant with bipap, 93 pO2 on 2liters, continues to retain CO2 level 61, pH improved from 7.26 to 7.28 Objective: Vitals: T=97.0 F, P=59, R=20, BY=930/63, SPO2=98 HEENT: []eomi Neck: []supple Lungs: [] rales CVS: []RRR Abdomen: []protuberant, no rebound Extremities: []edema Neurological: [alert and oriented] Skin: [] Lab/Tests/Diagnostic Imaging: [] Plan: chf and copd, await vq scan, continue lovenox and diuresis, albuteral as needed care to Dr Blair at 19:00
[2021-09-07] MEDS: MOTRIN PO PRN (17:47)
[2021-09-07] MEDS: FLOMAX PO SCH (20:31)
[2021-09-07] MEDS: MIRALAX PO SCH (20:33)
[2021-09-08 05:25] LABS: BASOPHILS % (AUTO) 0.6 % (0.0-3.0); EOSINOPHILS # (AUTO) 0.5 K/ul (0.0-0.7); HEMATOCRIT 33.3 % (42.0-52.0); HEMOGLOBIN 10.5 g/dl (14.0-18.0); IMMATURE GRANULOCYTE % (AUTO) 0.4 % (0.0-5.0); LYMPHOCYTES # (AUTO) 1.2 K/uL (0.60-3.4); MEAN CORPUSCULAR HEMOGLOBIN 30.2 pg (27.0-31.0); MEAN CORPUSCULAR HGB CONC 31.5 (31.8-35.4); MEAN CORPUSCULAR VOLUME 95.7 fl (80.0-94.0); MONOCYTES # (AUTO) 0.4 K/uL (0.4-2.0); MONOCYTES % (AUTO) 6.9 (0-10); NEUTROPHILS # (AUTO) 3.1 K/ul (2.0-6.9); NEUTROPHILS % (AUTO) 60.1 % (42.2-75.2); PLATELET COUNT 98 10^3/uL (140-440); RDW COEFFICIENT OF VARIATION 14.9 % (11.6-14.8); RED BLOOD COUNT 3.48 10^6/ul (4.70-6.10); WHITE BLOOD COUNT 5.22 K/ul (4.2-10.2)
[2021-09-08 05:33] LABS: ALANINE AMINOTRANSFERASE 24.7 U/L (0-50); ALBUMIN 3.76 g/dL (3.5-5.0); ALKALINE PHOSPHATASE 81.4 U/L (56-119); ASPARTATE AMINO TRANSFERASE 41.9 U/L (17-59); BILIRUBIN,TOTAL 0.28 mg/dL (0.2-1.3); BLOOD UREA NITROGEN 26.1 mg/dL (9-20); CALCIUM 8.84 mg/dL (8.4-10.2); CARBON DIOXIDE 30.6 mmol/L (22-30.0); CHLORIDE 101.7 mmol/L (98-107); CREATININE 1.24 mg/dL (0.60-1.10); GLUCOSE 110.3 mg/dL (74-106); POTASSIUM 4.1 mmol/L (3.5-5.1); SODIUM 137.4 mmol/L (134.5-145); TOTAL PROTEIN 6.26 g/dL (6.3-8.2)
[2021-09-08] MEDS: SYNTHROID PO SCH (05:33)
[2021-09-08] MEDS: LASIX IVP SCH (05:33)
[2021-09-08] MEDS: MOTRIN PO PRN (07:28)
[2021-09-08] MEDS: LOVENOX SUBCUT SCH ×2 (09:29→21:14)
[2021-09-08] MEDS: DITROPAN PO SCH (09:30)
[2021-09-08] MEDS: ZESTRIL PO SCH ×2 (09:30→21:16)
[2021-09-08] MEDS: ASPIRIN EC PO SCH (09:30)
[2021-09-08] MEDS: LYRICA PO SCH ×3 (09:30→21:16)
[2021-09-08] MEDS: GLUCOTROL PO SCH ×2 (09:30→18:17)
[2021-09-08] MEDS ORDERED: ROCEPHIN 1 GM/50 ML D5W 1 GM/50 ML BAG IV SCH (10:42)
--- NOTE | 2021-09-08 10:44 | PCM.PROG ---
Date Seen by Provider: 09/08/21 Subjective: pt still ngo, normal oxygenation on 2 liters NC at rest, still edematous, awaiting vq scan, on full dose lovenox, +ua treatment started w/ Rocephin awaiting c & s, Objective: Vitals: T=97.4 F, P=54, R=18, PF=717/52, SPO2=95 HEENT: []eomi Neck: []supple Lungs: [] rales improved CVS: []RRR Abdomen: []protuberant Extremities: []edema Neurological: []awake and alert Skin: []warm and dry Lab/Tests/Diagnostic Imaging: [] Plan: treat uti, chf, copd, obtain vq scan care to Dr Samayoa at 19;00
[2021-09-08] MEDS ORDERED: PRIMAXIN IV SCH (14:00)
[2021-09-08] MEDS ORDERED: SODIUM CHLORIDE IV SCH (14:00)
[2021-09-08] MEDS: PRIMAXIN IV SCH ×2 (14:14→22:08)
[2021-09-08] MEDS: SODIUM CHLORIDE IV SCH ×2 (14:14→22:08)
[2021-09-08] MEDS ORDERED: PROAIR HFA (SINGLE PATIENT USE) IH PRN (14:40)
[2021-09-08] MEDS: HYTRIN PO SCH (21:15)
[2021-09-08] MEDS: FLOMAX PO SCH (21:16)
[2021-09-08] MEDS: MIRALAX PO SCH (21:17)
[2021-09-08] MEDS: HUMULIN R SUBCUT PRN (21:32)
[2021-09-09] MEDS: SODIUM CHLORIDE IV SCH ×5 (02:00→23:11)
[2021-09-09] MEDS: PRIMAXIN IV SCH ×5 (02:00→23:11)
[2021-09-09] MEDS: SYNTHROID PO SCH (06:09)
[2021-09-09] MEDS: LASIX IVP SCH (06:10)
[2021-09-09] MEDS ORDERED: LIDOCAINE HCL 1% SDV ONE (07:06)
[2021-09-09] MEDS ORDERED: LIDOCAINE HCL 1% SDV INJ ONE (07:30)
[2021-09-09] MEDS: ASPIRIN EC PO SCH (08:49)
[2021-09-09] MEDS: GLUCOTROL PO SCH ×2 (08:49→17:06)
[2021-09-09] MEDS: ZESTRIL PO SCH ×2 (08:49→21:18)
[2021-09-09] MEDS: LYRICA PO SCH ×3 (08:50→21:18)
[2021-09-09] MEDS: DITROPAN PO SCH (08:50)
[2021-09-09] MEDS: LOVENOX SUBCUT SCH ×2 (08:51→21:19)
[2021-09-09] MEDS ORDERED: ROCEPHIN 1 GM/50 ML D5W 1 GM/50 ML BAG IV SCH (09:00)
--- NOTE | 2021-09-09 11:50 | DI ---
EXAM: Right elbow radiograph; two views 09/09/2021 HISTORY: Trauma COMPARISON: None. FINDINGS/IMPRESSION: No acute fracture. No dislocation. If symptoms persist repeat evaluation in 1 week recommended.
--- NOTE | 2021-09-09 11:50 | PCM.PROG ---
Date Seen by Provider: 09/09/21 Time Seen by Provider: 10:30 Subjective: Patient was admitted for COPD exacerbation and hypoxemia, He states that he is feeling better, breathing has improved. 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 He sustained injury to the right elbow with laceration and bleeding. Per nursing he has gained about 3 pounds since admission and would not elevate his legs. Objective: Vitals: T=97.5 F, P=55, R=18, EY=879/68, SPO2=95 HEENT: [hard of hearing, Oxygen by NC in place ] Neck: [Short neck ] Lungs: [Diminished breath sound bilaterally] CVS: [Distant Regular S1 and s2 ] Abdomen: [OBESE, soft not tender. Perez catheter in place. ] Extremities: [4 + piting edema ] Neurological: { awake and alert Moves all extremities. hard of hearing. ] Skin: [No rash except statis dermatitis on the shins bilaterally ] Lab/Tests/Diagnostic Imaging: [Reviewed. Right elbow x ray negative for fracture. ] (1) COPD exacerbation: Status: Acute Code(s): J44.1 - Chronic obstructive pulmonary disease with (acute) exacerbation SNOMED Code(s): 335175564 Assessment: feeling better, breathing has improved but requiring oxygen even at rest. Qualifies for home oxygen. continue Albuterol / Atrovent and inhaled steroids. (2) CHF (congestive heart failure): Status: Acute Code(s): I50.9 - Heart failure, unspecified SNOMED Code(s): 85368590 Assessment: Slight BNP elevation on admission. Still has 4 + pitting edema. Would not keep his legs elevated. Will order David stocking and one dose of Lasix 40mg IV (3) Hypoxia: Status: Acute Code(s): R09.02 - Hypoxemia SNOMED Code(s): 719217032 Assessment: Now needing oxygen at rest. will need home oxygen set up also due to history of sleep apnea. (4) Fall against object: Status: Acute Code(s): W18.00XA - Striking against unspecified object with subsequent fall, initial encounter SNOMED Code(s): 0454661 Assessment: Sustained a 1 cm Laceration to the right Elbow from fall when trying to pick something from the ground. No other injuries. Follow-up with PCP in 7-10 days to have your sutures removed. Report any signs of infection such as increased pain, swelling, redness or puss as this may be a sign of infection. (5) Urinary catheter in place: Status: Chronic Code(s): Z96.0 - Presence of urogenital implants SNOMED Code(s): 752727961 Assessment: Patient has a history of Urinary Retention and is on chronic indwelling Perez. Continue nursing foely care. Plan: 5 running 4.0 ethlon sutures placed after cleaning with hibacleanse, Tolerated fairly. bleeding was controlled. X ray of right elbow obtained. Continue management of COPD, CHF and Edema as noted above. DISCHARGE PLANNING IF CONTINUES TO IMPROVE MAY BE DISCHARGED IN THE AM WITH HOME OXYGEN.
[2021-09-09] MEDS ORDERED: LASIX IVP ONE (11:58)
[2021-09-09] MEDS: HUMULIN R SUBCUT PRN (11:59)
[2021-09-09] MEDS: MOTRIN PO PRN (15:17)
[2021-09-09] MEDS: FLOMAX PO SCH (21:18)
[2021-09-09] MEDS: HYTRIN PO SCH (21:18)
[2021-09-09] MEDS: MIRALAX PO SCH (21:18)
[2021-09-10] MEDS: LASIX IVP SCH (05:38)
[2021-09-10] MEDS: SYNTHROID PO SCH (05:38)
[2021-09-10] MEDS: PRIMAXIN IV SCH ×2 (05:40→12:25)
[2021-09-10] MEDS: SODIUM CHLORIDE IV SCH ×2 (05:40→12:25)
[2021-09-10] MEDS: LOVENOX SUBCUT SCH (09:46)
[2021-09-10] MEDS: DITROPAN PO SCH (09:47)
[2021-09-10] MEDS: GLUCOTROL PO SCH (09:47)
[2021-09-10] MEDS: ZESTRIL PO SCH (09:47)
[2021-09-10] MEDS: LYRICA PO SCH ×2 (09:47→16:48)
[2021-09-10] MEDS: ASPIRIN EC PO SCH (09:47)
[2021-09-10 10:23] LABS: ABG O2 HGB 94.1 % (95-100); ABG PH 7.36 (7.35-7.45); BEecf 7.4 (-2.0-3.0); COHb 1.8 (0.5-1.5); HCO3 32.8 (21-28); MetHb 1.1 (0-1.5); TCO2 34.6 (19-24); sO2 94.3 % (94-98); tHb 11.1 g/dl (11.7-17.4)
[2021-09-10 16:29] VITALS: BP 146/67; TEMP 97.6
--- NOTE | 2021-09-11 10:02 | NM ---
EXAM: Perfusion lung scan HISTORY: Shortness of breath. Elevated D-dimer. COMPARISON: None of this type. Chest x-ray 09/06/2021. CT 04/09/2021. PROCEDURE: Ventilation: This portion of the standard examination was not performed. Perfusion: The patient was injected with 5.0 mCi of 99 technetium MAA intravenously after which ante rior, posterior , lateral and anterior and posterior oblique images were obtained. FINDINGS: The examination demonstrates a relatively uniform distribution of activity within the lung becerra without specific segmental or subsegmental perfusion defects typical pulmonary embolus. There is relatively reduced activity in the upper lobes more noticeable on the right which may be associat ed with underlying chronic lung disease or possibly soft tissue attenuation. IMPRESSION: Low probability of pulmonary embolus.
--- NOTE | 2021-09-25 11:03 | PCM.DC ---
Final Diagnosis:Exacerbation COPD, CHF, llFalling episode, Elbow contusion , Chronic hypoxia,UTI (1) COPD exacerbation: Status: Acute Code(s): J44.1 - Chronic obstructive pulmonary disease with (acute) exacerbation SNOMED Code(s): 825495463 (2) CHF (congestive heart failure): Status: Acute Code(s): I50.9 - Heart failure, unspecified SNOMED Code(s): 25932480 (3) Hypoxia: Status: Acute Code(s): R09.02 - Hypoxemia SNOMED Code(s): 410299163 (4) Fall against object: Status: Acute Code(s): W18.00XA - Striking against unspecified object with subsequent fall, initial encounter SNOMED Code(s): 3436270 (5) Urinary catheter in place: Status: Chronic Code(s): Z96.0 - Presence of urogenital implants SNOMED Code(s): 507048611 Reason for Hospitalization: This 81-year-old male patient was it into the emergency room on the day of admission 1223 2020 with a shoe complaint of mild to moderate shortness of breath with dyspnea on exertion. This is been worsening over the preceding few days. He is on oxygen at home but has a history of being noncompliant with his therapy. Has a past history of diabetes COPD and hypertension. He was as well treated for a year and I track infection. He was available Dr Ana the ER physician x-ray of the chest revealed no acute changes his EKG showed normal sinus rhythm with no acute changes. Diagnostic lab was obtained and is found on the hospital chart for your further perusal. Appropriate diagnostic lab studies including serum chemistry ABGs and CBCs are noted that short. In the ER he was treated with IV Solu-Medrol Lasix and gave her an albuterol HFA inhaler He was admitted for treatment of exacerbation of COPD, CHF, and elevated D dim er. Imaging studies obtained including. Lt elbow x-ray showing no fracture or dislocation Results of a nuclear scan to evaluate his pulmonary perfusion showed low probability of pulmonary embolus During his hospital horse he Reyna [place] gradual improvement was feeling better with improved respiratory function. 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 This is treated appropriately at the bedside By Dr. Samayoa. After proper discharge planning he was discharged on 1227 2020 in improved condition. The remains on oxygen at the time of discharge and was prescribed the appropriate home medication's. These are listed on the hospital chart as well. Prognosis/Condition at Discharge: Fair Medications at Discharge: Ambulatory Orders Medication Instructions Recorded aspirin 81 mg tablet,delayed 81 mg PO DAILY 06/07/15 release (Aspir-) lancets 30 gauge #100 ea 09/29/17 syringe with cannula,disposabl 17 #4 sz 04/27/18 x 3 mL (BD Blunt Plastic Cannula) leg brace (RYAN Ankle Brace) #1 each 08/23/19 polyethylene glycol 3350 17 17 gm PO QHS gm 03/06/20 gram/dose oral powder (Miralax) ipratropium bromide 17 2 puff IH TID #12.9 gm 11/27/20 mcg/actuation HFA aerosol inhaler (Atrovent HFA) albuterol sulfate 2.5 mg (3 mL) INHALATION Q4H PRN 12/11/20 #180 ml blood sugar diagnostic #200 ea 12/11/20 insulin lispro 100 unit/mL 5 unit (0.05 mL) SUBCUT QAC #15 ml 12/11/20 subcutaneous pen (Humalog KwikPen (U-100) Insulin) levothyroxine 112 mcg tablet 112 mcg PO DAILY #90 tab-cap 12/11/20 pen needle, diabetic 31 gauge x #100 ea 12/11/2001/27" (Lite Touch Insulin Pen [place]) torsemide 20 mg tablet 20 mg PO DAILY #90 tab-cap 12/11/20 terazosin 5 mg capsule 5 mg PO DAILY #90 tab-cap 02/05/21 pentoxifylline 400 mg 400 mg PO BID #60 tab 04/22/21 tablet,extended release albuterol sulfate 90 mcg/actuation 2 puff IH Q6H PRN #18 gm 07/09/21 aerosol inhaler (ProAir HFA) glipizide 10 mg tablet 10 mg PO BID #60 tab 07/09/21 pregabalin 50 mg capsule (Lyrica) 50 mg PO TID #90 cap 08/27/21 lisinopril 20 mg tablet 20 mg PO BID #60 tab 09/02/21 oxybutynin chloride 5 mg tablet 5 mg PO DAILY 09/06/21 tamsulosin 0.4 mg capsule (Flomax) 0.4 mg PO BEDTIME 09/06/21 levofloxacin 500 mg tablet 500 mg PO Q24H #5 tab 09/10/21 budesonide-formoterol HFA 160 2 puff INHALATION BID #1 inh 09/16/21 mcg-4.5 mcg/actuation aerosol inhaler (Symbicort) montelukast 10 mg tablet 10 mg PO QHS #90 tab 09/16/21 Lab/Diagnostics: on chart for review Education Provided to Patient and Family: yes Follow-ups: With PCP in 2 days Hospital Course: In the ER he was treated with IV Solu-Medrol Lasix and gave her an albuterol HFA inhaler. Imaging studies obtained including. Lt elbow x-ray showing no fracture or dis location Results of a nuclear scan to evaluate his pulmonary perfusion showed low probability of pulmonary embolus During his hospital horse he Reyna [place] gradual improvement was feeling better with improved respiratory function. 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 This is treated appropriately at the bedside By Dr. Samayoa. After proper discharge planning he was discharged on 1227 2020 in improved condition. The remains on oxygen at the time of discharge and was prescribed the ap propriate home medication's. These are listed on the hospital chart as well. Plan: Discharge to home
== END 2021-09-10 16:00 | disposition home or self-care (01) | DRG 191 ==
LOC: ED 11:21 → MEDSURG A 15:43
PROVIDERS: ADMIT Emergency Medicine Emergency Medical Services; ATTEND Emergency Medicine
DX: R09.02 Hypoxemia; I50.9 Heart failure, unspecified; J44.1 Chronic obstructive pulmonary disease with (acute) exacerbation; S51.011A Laceration without foreign body of right elbow, initial encounter; E11.9 Type 2 diabetes mellitus without complications; Z96.0 Presence of urogenital implants; Z99.81 Dependence on supplemental oxygen; I10 Essential (primary) hypertension; Y92.230 Patient room in hospital as the place of occurrence of the external cause; Z20.822 Contact with and (suspected) exposure to COVID-19; N39.0 Urinary tract infection, site not specified; R79.1 Abnormal coagulation profile